=== PATIENT | male | born 1960 | race Caucasian/White ===

== ENCOUNTER 2018-05-04 13:46 | Inpatient (IN) | payer MEDICAID ==
--- NOTE | 2018-05-04 13:54 | EDM.PDOC ---
ED HPI GENERAL MEDICAL PROBLEM - General Stated Complaint: CHEST PAIN Time Seen by Provider: 05/04/18 13:46 Source of Information: Reports: Patient, Family History Limitations: Reports: Respiratory Distress - History of Present Illness INITIAL COMMENTS - FREE TEXT/NARRATIVE: 58 y.o.w.m came to the ed with his friend due to worsening of SOB in the past week. Pt can talk 2 word sentences and his Pule ox was 76 on RA on arrival. Pt was sweaty. He smokes daily and drinks daily. Denied any CAD in the past. No F/C , no N/V. He has a tingling in his throat, however. He can breath better when sitting up. BP 169/80 RR 22 pulse ox 76 pulse 108 Temp 36.8 Onset Date: 04/28/18 Onset Time: 08:28 Duration: Day(s):, Getting Worse, Intermittent Location: Reports: Chest Quality: Reports: Dull Severity: Moderate Improves with: Reports: Rest, Other (sitting up) Worsens with: Reports: Movement (lying in supine p[osition) Context: Reports: Other Associated Symptoms: Reports: Cough, Diaphoresis, Shortness of Breath, Weakness Throat Pain Score (Numeric/FACES): 10 - Related Data Allergies Allergy/AdvReac Type Severity Reaction Status Date / Time No Known Allergies Allergy Verified 05/04/18 17:11 Home Meds: Home Meds Acetaminophen [Mapap] 500 mg PO Q6H PRN 05/04/18 [History] Albuterol [Ventolin HFA] 1 - 2 puff IH Q4H PRN 05/04/18 [History] Amitriptyline [Elavil] 50 - 100 mg PO BEDTIME PRN 05/04/18 [History] Nicotine [Habitrol] 21 mg TD DAILY 05/04/18 [History] PARoxetine [Paxil] 40 mg PO DAILY 05/04/18 [History] QUEtiapine [SEROquel] 100 - 200 mg PO BEDTIME PRN 05/04/18 [History] Past Medical History Other Musculoskeletal History: Lt hand had 2 fingers reattached Other Psychiatric History: past 2-3 months ED ROS GENERAL - Review of Systems Review Of Systems: See Below Constitutional: Reports: Malaise, Weakness HEENT: Reports: Throat Pain Respiratory: Reports: Shortness of Breath, Cough Cardiovascular: Reports: Dyspnea on Exertion, Orthopnea Endocrine: Reports: No Symptoms GI/Abdominal: Reports: No Symptoms : Reports: No Symptoms Musculoskeletal: Reports: No Symptoms Skin: Reports: No Symptoms Neurological: Reports: No Symptoms Psychiatric: Reports: No Symptoms Hematologic/Lymphatic: Reports: No Symptoms Immunologic: Reports: No Symptoms ED EXAM, GENERAL - Physical Exam Exam: See Below Exam Limited By: Respiratory Distress General Appearance: Alert, Moderate Distress, Obese (morbid) Eye Exam: Bilateral Eye: Normal Inspection Ears: Normal External Exam Ear Exam: Bilateral Ear: Auricle Normal Nose: Normal Inspection Throat/Mouth: Normal Lips, Normal Voice, No Airway Compromise, Other (oral thrush) Head: Atraumatic, Normocephalic Neck: Normal Inspection, Supple, Non-Tender, Full Range of Motion Respiratory/Chest: Respiratory Distress, Decreased Breath Sounds, Rhonchi, Retractions, Prolonged Expiration Cardiovascular: Normal Peripheral Pulses, Regular Rate, Rhythm, No Edema, No Gallop, No JVD, No Murmur, No Rub Peripheral Pulses: 2+: Carotid (L) GI/Abdominal: Normal Bowel Sounds, Soft, Non-Tender, Distended (chronic) (Male) Exam: Deferred Rectal (Males) Exam: Deferred Back Exam: Normal Inspection, Full Range of Motion Extremities: Normal Inspection, Normal Range of Motion, Non-Tender, No Pedal Edema, Normal Capillary Refill Neurological: Alert, Oriented, CN II-XII Intact, Normal Cognition Psychiatric: Normal Affect Skin Exam: Warm, Dry, Intact, Diaphoretic Lymphatic: No Adenopathy EKG INTERPRETATION EKG Date: 05/04/18 Time: 14:00 Rhythm: NSR Rate (Beats/Min): 100 [place]: Normal P-Wave: Present QRS: Normal ST-T: Normal QT: Normal Comparison: NA - No Prior EKG EKG Interpretation Comments: second ECG take on 05/04/2018 at 19.45 did not show any acute ST/T wave changes as well Course - Vital Signs Text/Narrative:: 58 y.o.w.m came to the ed with his friend due to worsening of SOB in the past week. Pt can talk 2 word sentences and his Pule ox was 76 on RA on arrival. Pt was sweaty. He smokes daily and drinks daily. Denied any CAD in the past. No F/C , no N/V. He has a tingling in his throat, however. He can breath better when sitting up. BP 169/80 RR 22 pulse ox 76 pulse 108 Temp 36.8 PE: Morbid obese 58 y.o.w.m in rwsp distress. Labs: BNP 527 CBC nl BMP GFR. 60 BUN 13 Cr 1.1 Na, K nl ABG: pH 7.33 pCo2 60 po2 67 Biocarb 31 Troponin 0.017 Pts 84K ImagingL CXR: Poss chf as per RAD Impression: Pulm edema, Oral thrush, resp acidosis Tx: Duoneb, Solu Medrol, Lasix, O2 by NC, Albuterol inhalers. 3.20 pm Consultation: Dr. Pillai, Hospitalist: Accepted the pt for admission. Reexam: improved, pt can speak 5 word sentences. Plan: Admit to ICU Reexam: Troponin repeat increased to 0.038 ECG showed NSR without acute ST/T wave changes, pt had no chest pain, only when coughing 8.33 pm Consultatiom: Drs. Westbrook, Manual Arts Therapy Teacher, Dariusz, Hospitalist, [facility]: Non STEME, Start Heparin drip with Bolus!, ASA and transfer pt to [facility] 8.45 Tx: ASA, Heparin drip , with Heparin bolus was given 9.00 pm: [facility] called nurse, would not recommend Heparin Bolus because the platelets were low and she will hold the bolus till the Manual Arts Therapy Teacher was called. 9.12 pm Consultation: Dr. Arzola, Hospitalist: Tele pharmacy called: Because the Pls were low. Dr. Arzola recommended: NO HEPARIN BOLUS but 2.5 mg Metoprolol i.v 9.14 pm nurse came to the ED stating: Heparin bolus was already given by the nurse. 9.47 pm Consultation: Dr. Arzola, Hospitalist, [facility]: Was informed that the Heparin Bolus was given, he still wants Metoprolol given. Reexam: Pt was stable while here Plan: Transfer to [facility] Last Recorded V/S: Last Vital Signs Temp 36.6 C 05/04/18 22:00 Pulse 86 05/04/18 22:30 Resp 22 H 05/04/18 22:30 BP 136/84 05/04/18 22:30 Pulse Ox 95 05/04/18 22:30 - Orders/Labs/Meds Orders: Active Orders 24 hr Category Date Time Status EKG 12 Lead [EK] Routine Ther 05/04/18 13:52 Ordered Labs: Laboratory Tests 05/04/18 05/04/18 05/04/18 Range/Units 13:45 13:45 14:15 WBC 6.7 (4.5-12.0) X10-3/uL RBC 4.46 (4.30-5.75) x10(6)uL Hgb 15.6 H (11.5-15.5) g/dL Hct 46.6 (30.0-51.3) % MCV 104.3 H (80-96) fL MCH 34.9 H (27.7-33.6) pg MCHC 33.5 (32.2-35.4) g/dL RDW 13.8 (11.5-15.5) % Plt Count 84 L (125-369) X10(3)uL MPV 10.7 H (7.4-10.4) fL Neut % (Auto) 78.8 (46-82) % Lymph % (Auto) 8.7 L (13-37) % Harvey % (Auto) 11.0 (4-12) % Eos % (Auto) 0 L (1.0-5.0) % Baso % (Auto) 1 (0-2) % Neut # (Auto) 5.3 (1.6-8.3) # Lymph # (Auto) 0.6 (0.6-5.0) # Harvey # (Auto) 0.7 (0.0-1.3) # Eos # (Auto) 0.0 (0.0-0.8) # Baso # (Auto) 0.1 (0.0-0.2) # PT (8.7-11.1) INR (0.89-1.13) ABG pH (7.35-7.45) ABG pCO2 (35-45) mmHg ABG pO2 (83-108) mmHg ABG HCO3 (22-26) mmol/L ABG O2 Saturation (96-97) % ABG Base Excess (-2-2) Fredrick Test O2 Delivery Device Sodium (135-145) mmol/L Potassium (3.5-5.3) mmol/L Chloride (100-110) mmol/L Carbon Dioxide (21-32) mmol/L BUN (7-18) mg/dL Creatinine (0.70-1.30) mg/dL Est Cr Clr Drug Dosing mL/min Estimated GFR (MDRD) (>60) BUN/Creatinine Ratio (9-20) Glucose (80-116) mg/dL Lactic Acid (0.4-2.2) mmol/L Calcium (8.6-10.2) mg/dL Magnesium 1.6 L (1.8-2.5) mg/dL Creatine Kinase (60-160) IU/L Troponin I (<0.017-0.056) ng/mL NT-Pro-B Natriuret Pep 391 H (<=125) pg/mL 05/04/18 05/04/18 05/04/18 Range/Units 14:15 14:15 14:15 WBC (4.5-12.0) X10-3/uL RBC (4.30-5.75) x10(6)uL Hgb (11.5-15.5) g/dL Hct (30.0-51.3) % MCV (80-96) fL MCH (27.7-33.6) pg MCHC (32.2-35.4) g/dL RDW (11.5-15.5) % Plt Count (125-369) X10(3)uL MPV (7.4-10.4) fL Neut % (Auto) (46-82) % Lymph % (Auto) (13-37) % Harvey % (Auto) (4-12) % Eos % (Auto) (1.0-5.0) % Baso % (Auto) (0-2) % Neut # (Auto) (1.6-8.3) # Lymph # (Auto) (0.6-5.0) # Harvey # (Auto) (0.0-1.3) # Eos # (Auto) (0.0-0.8) # Baso # (Auto) (0.0-0.2) # PT 10.3 (8.7-11.1) INR 1.06 (0.89-1.13) ABG pH (7.35-7.45) ABG pCO2 (35-45) mmHg ABG pO2 (83-108) mmHg ABG HCO3 (22-26) mmol/L ABG O2 Saturation (96-97) % ABG Base Excess (-2-2) Fredrick Test O2 Delivery Device Sodium 129 L (135-145) mmol/L Potassium 4.0 (3.5-5.3) mmol/L Chloride 93 L (100-110) mmol/L Carbon Dioxide 31 (21-32) mmol/L BUN 13 (7-18) mg/dL Creatinine 1.1 (0.70-1.30) mg/dL Est Cr Clr Drug Dosing 79.36 mL/min Estimated GFR (MDRD) > 60 (>60) BUN/Creatinine Ratio 11.8 (9-20) Glucose 285 H (80-116) mg/dL Lactic Acid (0.4-2.2) mmol/L Calcium 9.0 (8.6-10.2) mg/dL Magnesium (1.8-2.5) mg/dL Creatine Kinase (60-160) IU/L Troponin I 0.027 (<0.017-0.056) ng/mL NT-Pro-B Natriuret Pep (<=125) pg/mL 05/04/18 05/04/18 05/04/18 Range/Units 14:15 14:15 14:41 WBC (4.5-12.0) X10-3/uL RBC (4.30-5.75) x10(6)uL Hgb (11.5-15.5) g/dL Hct (30.0-51.3) % MCV (80-96) fL MCH (27.7-33.6) pg MCHC (32.2-35.4) g/dL RDW (11.5-15.5) % Plt Count (125-369) X10(3)uL MPV (7.4-10.4) fL Neut % (Auto) (46-82) % Lymph % (Auto) (13-37) % Harvey % (Auto) (4-12) % Eos % (Auto) (1.0-5.0) % Baso % (Auto) (0-2) % Neut # (Auto) (1.6-8.3) # Lymph # (Auto) (0.6-5.0) # Harvey # (Auto) (0.0-1.3) # Eos # (Auto) (0.0-0.8) # Baso # (Auto) (0.0-0.2) # PT (8.7-11.1) INR (0.89-1.13) ABG pH 7.33 L (7.35-7.45) ABG pCO2 60 H (35-45) mmHg ABG pO2 67 L (83-108) mmHg ABG HCO3 31 H (22-26) mmol/L ABG O2 Saturation 91 L (96-97) % ABG Base Excess 2.6 H (-2-2) Fredrick Test Passed O2 Delivery Device Nasal cannula Sodium (135-145) mmol/L Potassium (3.5-5.3) mmol/L Chloride (100-110) mmol/L Carbon Dioxide (21-32) mmol/L BUN (7-18) mg/dL Creatinine (0.70-1.30) mg/dL Est Cr Clr Drug Dosing mL/min Estimated GFR (MDRD) (>60) BUN/Creatinine Ratio (9-20) Glucose (80-116) mg/dL Lactic Acid 1.8 (0.4-2.2) mmol/L Calcium (8.6-10.2) mg/dL Magnesium (1.8-2.5) mg/dL Creatine Kinase 588 H* (60-160) IU/L Troponin I (<0.017-0.056) ng/mL NT-Pro-B Natriuret Pep (<=125) pg/mL Meds: Medications Discontinued Medications Generic Name Dose Route Start Last Admin Trade Name Freq PRN Reason Stop Dose Admin Acetaminophen 650 mg 05/04/18 15:26 Tylenol PO Q4H PRN Pain (Mild 1-3)/fever Albuterol 10 mg 05/04/18 15:14 05/04/18 16:32 Proventil Neb Soln NEB 05/04/18 15:15 Not Given ONETIME STA Albuterol 2.5 mg 05/04/18 15:26 Proventil Neb Soln NEB Q2H PRN Shortness Of Breath/wheezing Albuterol/Ipratropium 3 ml 05/04/18 14:10 05/04/18 14:16 Duoneb 3.0-0.5 Mg/3 Ml NEB 05/04/18 14:11 3 ml ONETIME ONE Administration Albuterol/Ipratropium Confirm 05/04/18 14:13 05/04/18 15:04 Duoneb 3.0-0.5 Mg/3 Ml Administered 05/04/18 14:14 Not Given Dose 3 ml .ROUTE .STK-MED ONE Albuterol/Ipratropium 3 ml 05/04/18 14:23 05/04/18 15:04 Duoneb 3.0-0.5 Mg/3 Ml NEB 05/04/18 14:24 Not Given ONETIME ONE Albuterol/Ipratropium 3 ml 05/04/18 16:00 05/04/18 21:05 Duoneb 3.0-0.5 Mg/3 Ml NEB 3 ml QIDRT HERACLIO Administration Amitriptyline HCl 50 mg 05/04/18 16:53 Elavil PO BEDTIME PRN Sleep Amitriptyline HCl 50 mg 05/04/18 18:00 Elavil PO BEDTIME PRN SLEEP Aspirin 324 mg 05/04/18 20:37 05/04/18 21:06 Aspirin PO 05/04/18 20:38 324 mg ONETIME ONE Administration Furosemide 20 mg 05/04/18 15:24 05/04/18 15:49 Lasix IVPUSH 05/04/18 15:25 20 mg NOW STA Administration Heparin Sodium (Porcine) 5,000 units 05/04/18 20:51 05/04/18 21:06 Heparin Sodium IVPUSH 05/04/18 20:52 5,000 units ONETIME ONE Administration Magnesium Sulfate 2 gm/ Premix 50 mls @ 150 mls/hr 05/04/18 18:09 05/04/18 19 :27 IV 05/04/18 18:28 150 mls/hr ONETIME ONE Administration Heparin Sodium/Sodium Chloride 25,000 units in 500 mls @ 20 mls/hr 05/04/18 20 :45 05/04/18 21:33 Heparin 25,000 Units In 1/2 Ns 500 Ml IV 20 mls/hr TITRATE HERACLIO Administration Protocol Methylprednisolone Sodium Succinate 125 mg 05/04/18 14:56 05/04/18 15:00 Solu-Medrol IVPUSH 05/04/18 14:57 125 mg ONETIME ONE Administration Methylprednisolone Sodium Succinate 40 mg 05/04/18 21:00 05/04/18 21:09 Solu-Medrol IVPUSH 40 mg Q6H HERACLIO Administration Metoprolol Tartrate 2.5 mg 05/04/18 21:17 05/04/18 21:58 Lopressor IVPUSH 05/04/18 21:18 2.5 mg ONETIME ONE Administration Nicotine 21 mg 05/04/18 17:00 05/04/18 17:47 Habitrol TRDERM 21 mg Q24H HERACLIO Administration Nystatin 5 ml 05/04/18 15:01 05/04/18 15:07 Mycostatin PO 05/04/18 15:02 5 ml ONETIME ONE Administration Oseltamivir Phosphate 75 mg 05/04/18 17:00 05/04/18 17:48 Tamiflu PO 05/09/18 17:01 75 mg BID HERACLIO Administration Paroxetine HCl 40 mg 05/05/18 09:00 Paxil PO DAILY HERACLIO Pneumococcal Polyvalent Vaccine 0.5 ml 05/04/18 19:51 Pneumovax 23 IM 05/04/18 19:52 .ONCE ONE Quetiapine Fumarate 100 mg 05/04/18 16:53 Seroquel PO BEDTIME PRN Sleep Sodium Chloride 10 ml 05/04/18 15:02 05/04/18 22:12 Saline Flush FLUSH 10 ml ASDIRECTED PRN Administration IV Use Sodium Chloride 10 ml 05/04/18 15:26 Saline Flush FLUSH ASDIRECTED PRN Keep Vein Open Departure - Departure Time of Disposition: 16:00 Disposition: Admitted As Inpatient 65 Reason for Transfer *Q: 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
[2018-05-04] MEDS ORDERED: Albuterol/Ipratropium 3.0-0.5 MG/3 ML Neb Soln NEB ONE ×2 (14:10→14:23)
[2018-05-04] MEDS ORDERED: Albuterol/Ipratropium 3.0-0.5 MG/3 ML Neb Soln ONE (14:13)
[2018-05-04] MEDS ORDERED: methylPREDNISolone Sodium Succinate 125 MG/2 ML SDV IVPUSH ONE (14:56)
[2018-05-04] MEDS ORDERED: Nystatin Susp 100,000 Unit/ML 5 ML UD Cup PO ONE (15:01)
[2018-05-04] MEDS: Sodium Chloride 0.9% 10 ML Syringe FLUSH PRN ×6 (15:02→22:12)
[2018-05-04] MEDS ORDERED: Albuterol 0.5% 5 MG/ML Neb Soln 20 ML Bottle NEB STA (15:14)
[2018-05-04] MEDS ORDERED: Furosemide 40 MG/4 ML VIAL IVPUSH STA (15:24)
[2018-05-04] MEDS ORDERED: Sodium Chloride 0.9% 10 ML Syringe FLUSH PRN (15:26)
[2018-05-04] MEDS ORDERED: Albuterol 0.083% 2.5 MG/3 ML Neb Soln NEB PRN (15:26)
[2018-05-04] MEDS ORDERED: Acetaminophen 325 MG Tab PO PRN (15:26)
[2018-05-04] MEDS: Albuterol/Ipratropium 3.0-0.5 MG/3 ML Neb Soln NEB SCH ×2 (15:43→21:05)
--- NOTE | 2018-05-04 15:46 | CR ---
INDICATION: Dyspnea. CHEST: A portable AP upright view of the chest, 05/04/18, with two images. No comparisons. The heart did not appear grossly enlarged. Mediastinum was essentially unremarkable. Overlying EKG leads are noted. Upper lung field pulmonary vasculature is prominent and indistinct with interstitial markings suggesting pulmonary vascular congestion. Etiology is indeterminate, as the heart is normal in size but raises question of an acute myocardial event versus other noncardiac cause of pulmonary vascular congestion , such as fluid overload or possibly renal failure. This should be correlated clinically. The lungs appear to be hyperaerated, suggesting COPD. IMPRESSION: 1. Pulmonary vascular congestion with interstitial lung edema, etiology indeterminate. 2. Probable COPD. Report was called to Dr. Walsh at 1524 hours on 05/04/18. [facility]
[2018-05-04] MEDS ORDERED: QUEtiapine 100 MG Tab PO PRN (16:53)
[2018-05-04] MEDS ORDERED: Oseltamivir 75 MG Cap PO SCH (17:00)
[2018-05-04] MEDS ORDERED: Nicotine 21 MG/24 Hr Patch TRDERM SCH (17:00)
--- NOTE | 2018-05-04 17:02 | PCM.HP ---
H&P History of Present Illness - General Date of Service: 05/04/18 Admit Problem/Dx: Admission Diagnosis/Problem Admission Diagnosis/Problem Acute respiratory failure with hypoxemia Source of Information: Patient, Family, Old Records, Provider History Limitations: Reports: No Limitations, Other (Patient poor historian) - History of Present Illness Initial Comments - Free Text/Narative: Patient is a 58-year-old male with a long-standing history of cigarette smoking with a pack year history of 111. He normally smokes 1 pack of cigarettes every 3 days. The day prior to admission he developed chills, fever, myalgias, cough, sore throat, and headache. He presented to the clinic for further evaluations. He hadn't tried anything [id number]. He had no chest pain, no nausea or vomiting, no diarrhea. No wheezing. Did not have a flu vaccine this year. On presentation to the clinic he was found to be quite hypoxic with O2 sats at 77% on room air. He received a nebulizer treatment and was placed on 3 L per nasal cannula and oxygen levels came up to 89%. He was advised to come to the hospital by ambulance and was unable to be persuaded. I was contacted to admit the patient to the hospital and agreed to accept the patient but by the time he arrived here he was so hypoxic he was seen through the emergency department instead of being a direct admission. Currently, the patient is had nebulizer treatments 4. Initial workup in the emergency department was otherwise unremarkable. Blood gases at the time of admission showed a pH of 7.33 with a CO2 of 60 and O2 67 but the patient is much more comfortable now and seems to have stabilized with his oxygen saturations are 94% on 4 L respiratory rate in the 20 range. Initial labs were otherwise unremarkable with the exception of blood sugar 285 and magnesium 1.6. The patient has no known history of diabetes or hyperglycemia. Medication list was reviewed from the clinic, pharmacy fills, and the [facility] where the patient doctors for his psychiatric care. The patient received a dose of Lasix in the emergency department because of question of congestive heart failure on the x-ray and also received nystatin orally for coating on the tongue. Past medical history: Anxiety and depression Tobacco abuse No history of hypertension, diabetes, heart attack or stroke per patient report. In reviewing notes sent over from [facility] there is no mention of other medical problems. Social history: The patient is single and lives alone in an apartment in [place]. He has no children. He is currently unemployed but is looking for work and has been interviewing. He smokes one pack of cigarettes every 3 days and has for the last 35 years. He drinks alcohol at least once a week and tells me he goes through about a 12 pack of beer per week. He doesn't drink frequently during the week but when he does drink he drinks fairly heavily it sounds. Family history: The patient's mother of congestive heart failure at the age of 92. His father of rectal cancer at the age of 55. The patient has 2 brothers, one from congestive heart failure at the age of 51. The other has diabetes. He has 3 healthy sisters who he has very little contact with. Throat Pain Score (Numeric/FACES): 10 - Related Data Allergies/Adverse Reactions: Allergies Allergy/AdvReac Type Severity Reaction Status Date / Time No Known Allergies Allergy Verified 05/04/18 17:11 Home Medications: Home Meds Acetaminophen [Mapap] 500 mg PO Q6H PRN 05/04/18 [History] Albuterol [Ventolin HFA] 1 - 2 puff IH Q4H PRN 05/04/18 [History] Amitriptyline [Elavil] 50 - 100 mg PO BEDTIME PRN 05/04/18 [History] Nicotine [Habitrol] 21 mg TD DAILY 05/04/18 [History] PARoxetine [Paxil] 40 mg PO DAILY 05/04/18 [History] QUEtiapine [SEROquel] 100 - 200 mg PO BEDTIME PRN 05/04/18 [History] Past Medical History Cardiovascular History: Reports: Hypertension Other Musculoskeletal History: Lt hand had 2 fingers reattached Psychiatric History: Reports: Anxiety, Depression Other Psychiatric History: past 2-3 months Endocrine/Metabolic History: Reports: Obesity/BMI 30+ Social & Family History - Tobacco Use Smoking Status *Q: Current Every Day Smoker Years of Tobacco use: 35 Packs/Tins Daily: 0.4 - Caffeine Use Caffeine Use: Reports: Coffee - Recreational Drug Use Recreational Drug Use: No H&P Review of Systems - Review of Systems: Review Of Systems: ROS reveals no pertinent complaints other than HPI. Exam - Exam Exam: See Below - Vital Signs Vital Signs: Last Vital Signs Temp 37.2 C 05/04/18 13:50 Pulse 100 05/04/18 15:55 Resp 22 H 05/04/18 13:50 BP 169/80 H 05/04/18 13:50 Pulse Ox 92 L 05/04/18 15:55 Weight: 108.862 kg - Exam General: Alert, Oriented, Cooperative HEENT: PERRLA, Conjunctiva Clear, EOMI, Other (Tongue coated with a yellow film and apparently the patient got nystatin in the emergency department for this.) Neck: Supple, Trachea Midline Lungs: Decreased Breath Sounds. No: Crackles, Rhonchi, Wheezing Cardiovascular: Regular Rate, Regular Rhythm, Normal S1, Normal S2 GI/Abdominal Exam: Normal Bowel Sounds, Soft, Non-Tender, No Distention Extremities: No Pedal Edema Neuro Extensive - Mental Status: Alert, Oriented x3, Normal Mood/Affect, Normal Cognition - Patient Data Lab Results Last 24 hrs: Laboratory Results - last 24 hr 05/04/18 05/04/18 05/04/18 Range/Units 13:45 13:45 14:15 WBC 6.7 (4.5-12.0) X10-3/uL RBC 4.46 (4.30-5.75) x10(6)uL Hgb 15.6 H (11.5-15.5) g/dL Hct 46.6 (30.0-51.3) % MCV 104.3 H (80-96) fL MCH 34.9 H (27.7-33.6) pg MCHC 33.5 (32.2-35.4) g/dL RDW 13.8 (11.5-15.5) % Plt Count 84 L (125-369) X10(3)uL MPV 10.7 H (7.4-10.4) fL Neut % (Auto) 78.8 (46-82) % Lymph % (Auto) 8.7 L (13-37) % [place] % (Auto) 11.0 (4-12) % Eos % (Auto) 0 L (1.0-5.0) % Baso % (Auto) 1 (0-2) % Neut # (Auto) 5.3 (1.6-8.3) # Lymph # (Auto) 0.6 (0.6-5.0) # [place] # (Auto) 0.7 (0.0-1.3) # Eos # (Auto) 0.0 (0.0-0.8) # Baso # (Auto) 0.1 (0.0-0.2) # PT (8.7-11.1) INR (0.89-1.13) ABG pH (7.35-7.45) ABG pCO2 (35-45) mmHg ABG pO2 (83-108) mmHg ABG HCO3 (22-26) mmol/L ABG O2 Saturation (96-97) % ABG Base Excess (-2-2) Fredrick Test O2 Delivery Device Sodium (135-145) mmol/L Potassium (3.5-5.3) mmol/L Chloride (100-110) mmol/L Carbon Dioxide (21-32) mmol/L BUN (7-18) mg/dL Creatinine (0.70-1.30) mg/dL Est Cr Clr Drug Dosing mL/min Estimated GFR (MDRD) (>60) BUN/Creatinine Ratio (9-20) Glucose (80-116) mg/dL Lactic Acid (0.4-2.2) mmol/L Calcium (8.6-10.2) mg/dL Magnesium 1.6 L (1.8-2.5) mg/dL Creatine Kinase (60-160) IU/L Troponin I (<0.017-0.056) ng/mL NT-Pro-B Natriuret Pep 391 H (<=125) pg/mL 05/04/18 05/04/18 05/04/18 Range/Units 14:15 14:15 14:15 WBC (4.5-12.0) X10-3/uL RBC (4.30-5.75) x10(6)uL Hgb (11.5-15.5) g/dL Hct (30.0-51.3) % MCV (80-96) fL MCH (27.7-33.6) pg MCHC (32.2-35.4) g/dL RDW (11.5-15.5) % Plt Count (125-369) X10(3)uL MPV (7.4-10.4) fL Neut % (Auto) (46-82) % Lymph % (Auto) (13-37) % [place] % (Auto) (4-12) % Eos % (Auto) (1.0-5.0) % Baso % (Auto) (0-2) % Neut # (Auto) (1.6-8.3) # Lymph # (Auto) (0.6-5.0) # [place] # (Auto) (0.0-1.3) # Eos # (Auto) (0.0-0.8) # Baso # (Auto) (0.0-0.2) # PT 10.3 (8.7-11.1) INR 1.06 (0.89-1.13) ABG pH (7.35-7.45) ABG pCO2 (35-45) mmHg ABG pO2 (83-108) mmHg ABG HCO3 (22-26) mmol/L ABG O2 Saturation (96-97) % ABG Base Excess (-2-2) Fredrick Test O2 Delivery Device Sodium 129 L (135-145) mmol/L Potassium 4.0 (3.5-5.3) mmol/L Chloride 93 L (100-110) mmol/L Carbon Dioxide 31 (21-32) mmol/L BUN 13 (7-18) mg/dL Creatinine 1.1 (0.70-1.30) mg/dL Est Cr Clr Drug Dosing 79.36 mL/min Estimated GFR (MDRD) > 60 (>60) BUN/Creatinine Ratio 11.8 (9-20) Glucose 285 H (80-116) mg/dL Lactic Acid (0.4-2.2) mmol/L Calcium 9.0 (8.6-10.2) mg/dL Magnesium (1.8-2.5) mg/dL Creatine Kinase (60-160) IU/L Troponin I 0.027 (<0.017-0.056) ng/mL NT-Pro-B Natriuret Pep (<=125) pg/mL 05/04/18 05/04/18 05/04/18 Range/Units 14:15 14:15 14:41 WBC (4.5-12.0) X10-3/uL RBC (4.30-5.75) x10(6)uL Hgb (11.5-15.5) g/dL Hct (30.0-51.3) % MCV (80-96) fL MCH (27.7-33.6) pg MCHC (32.2-35.4) g/dL RDW (11.5-15.5) % Plt Count (125-369) X10(3)uL MPV (7.4-10.4) fL Neut % (Auto) (46-82) % Lymph % (Auto) (13-37) % [place] % (Auto) (4-12) % Eos % (Auto) (1.0-5.0) % Baso % (Auto) (0-2) % Neut # (Auto) (1.6-8.3) # Lymph # (Auto) (0.6-5.0) # [place] # (Auto) (0.0-1.3) # Eos # (Auto) (0.0-0.8) # Baso # (Auto) (0.0-0.2) # PT (8.7-11.1) INR (0.89-1.13) ABG pH 7.33 L (7.35-7.45) ABG pCO2 60 H (35-45) mmHg ABG pO2 67 L (83-108) mmHg ABG HCO3 31 H (22-26) mmol/L ABG O2 Saturation 91 L (96-97) % ABG Base Excess 2.6 H (-2-2) Fredrick Test Passed O2 Delivery Device Nasal cannula Sodium (135-145) mmol/L Potassium (3.5-5.3) mmol/L Chloride (100-110) mmol/L Carbon Dioxide (21-32) mmol/L BUN (7-18) mg/dL Creatinine (0.70-1.30) mg/dL Est Cr Clr Drug Dosing mL/min Estimated GFR (MDRD) (>60) BUN/Creatinine Ratio (9-20) Glucose (80-116) mg/dL Lactic Acid 1.8 (0.4-2.2) mmol/L Calcium (8.6-10.2) mg/dL Magnesium (1.8-2.5) mg/dL Creatine Kinase 588 H* (60-160) IU/L Troponin I (<0.017-0.056) ng/mL NT-Pro-B Natriuret Pep (<=125) pg/mL Result Diagrams: 05/04/18 14:15 05/04/18 14:15 Imaging Impressions Last 24 hrs: Chest x-ray was done portable emergency department and to my review looks fairly clear. I don't see any fluid in the costophrenic angles and perhaps a little increased vascular markings but certainly no infiltrate. - Problem List (1) Acute respiratory failure with hypoxia and hypercapnia SNOMED Code(s): 635603009 ICD Code: J96.01 - ACUTE RESPIRATORY FAILURE WITH HYPOXIA; J96.02 - ACUTE RESPIRATORY FAILURE WITH HYPERCAPNIA Status: Acute Current Visit: Yes Problem Details: Likely multifactorial, I suspect the patient has moderate underlying COPD that caused his influenza to trigger significant reactive airways and bronchospasm resulting in severe hypoxia. The patient is somewhat improved. We'll continue supplemental oxygen, cardiac monitoring, duo nebs, Solu -Medrol, Tamiflu as below, and monitor for signs of bacterial secondary infection. Also recheck CK and troponin in 4 hours to make sure these aren't trending up and the patient hasn't had a myocardial infarction which was contributing to his shortness of breath. (2) Influenza A SNOMED Code(s): 483330484 ICD Code: J10.1 - FLU DUE TO OTH IDENT INFLUENZA VIRUS W OTH RESP MANIFEST Status: Acute Current Visit: Yes Problem Details: Tamiflu 75 mg by mouth twice a day 5 days. Droplet precautions. (3) Tobacco abuse SNOMED Code(s): 590035539 ICD Code: Z72.0 - TOBACCO USE Status: Acute Current Visit: Yes Problem Details: Nicotine patch. (4) Hypomagnesemia SNOMED Code(s): 058125794 ICD Code: E83.42 - HYPOMAGNESEMIA Status: Acute Current Visit: Yes Problem Details: Replace IV. (5) Macrocytosis SNOMED Code(s): 082067040 ICD Code: D75.89 - OTHER SPECIFIED DISEASES OF BLOOD AND BLOOD-FORMING ORGANS Status: Acute Current Visit: Yes Problem Details: Check a B12 and folate. May be related to alcohol abuse. (6) Anxiety and depression SNOMED Code(s): 60977211 ICD Code: F41.9 - ANXIETY DISORDER, UNSPECIFIED; F32.9 - MAJOR DEPRESSIVE DISORDER, SINGLE EPISODE, UNSPECIFIED Status: Acute Current Visit: Yes Problem Details: Continue home meds. (7) Brown hairy tongue SNOMED Code(s): 90586635 ICD Code: K14.3 - HYPERTROPHY OF TONGUE PAPILLAE Status: Acute Current Visit: Yes Problem Details: Suspect from drinking/smoking/poor oral hygiene. [place] tongue with teeth BID. (8) DVT prophylaxis SNOMED Code(s): 549399947, 106793591 ICD Code: [id number] - Status: Acute Current Visit: Yes Problem Details: SCDs, Lovenox. Problem List Initiated/Reviewed/Updated: Yes Orders Last 24hrs: Active Orders 24 hr Category Date Time Status Patient Status [ADT] Routine ADT 05/04/18 15:26 Active Height and Weight [RC] DAILY Care 05/04/18 15:26 Active Intake and Output [RC] QSHIFT Care 05/04/18 15:27 Active Notify Provider Vital Signs [RC] ASDIRECTED Care 05/04/18 15:28 Active Oxygen Therapy [RC] PRN Care 05/04/18 15:26 Active RT Aerosol Therapy [RC] ASDIRECTED Care 05/04/18 15:29 Active Up With Assistance [RC] ASDIRECTED Care 05/04/18 15:26 Active VTE/DVT Education [RC] Per Unit Routine Care 05/04/18 15:26 Active Vital Signs [RC] Q4H Care 05/04/18 15:26 Active Respiratory Care Assess and Treatment [CONS] Routine Cons 05/04/18 15:26 Active 2 Gram Sodium Diet [DIET] Diet 05/04/18 Breakfast Ordered Consistent Carbohydrate Diet [DIET] Diet 05/04/18 Breakfast Ordered CBC WITH AUTO DIFF [HEME] AM Lab 05/05/18 05:11 Ordered COMPREHENSIVE METABOLIC PN,CMP [CHEM] AM Lab 05/05/18 05:11 Ordered CULTURE SPUTUM + SMEAR [RM] Stat Lab 05/04/18 15:26 Ordered TROPONIN I [CHEM] Routine Lab 05/04/18 18:30 Ordered Acetaminophen [Tylenol] Med 05/04/18 15:26 Active 650 mg PO Q4H PRN Albuterol [Proventil Neb Soln] Med 05/04/18 15:26 Active 2.5 mg NEB Q2H PRN Albuterol/Ipratropium [DuoNeb 3.0-0.5 MG/3 ML] Med 05/04/18 16:00 Active 3 ml NEB QIDRT Amitriptyline [Elavil] Med 05/04/18 16:53 Ordered 50 mg PO BEDTIME PRN Nicotine [Habitrol] Med 05/05/18 09:00 Ordered 21 mg TRDERM DAILY Oseltamivir [Tamiflu] Med 05/04/18 17:00 Ordered 75 mg PO BID PARoxetine [Paxil] Med 05/05/18 09:00 Ordered 40 mg PO DAILY QUEtiapine [SEROquel] Med 05/04/18 16:53 Ordered 100 mg PO BEDTIME PRN Sodium Chloride 0.9% [Saline Flush] Med 05/04/18 15:02 Active 10 ml FLUSH ASDIRECTED PRN Sodium Chloride 0.9% [Saline Flush] Med 05/04/18 15:26 Active 10 ml FLUSH ASDIRECTED PRN Antiembolic Hose [OM.PC] Per Unit Routine Oth 05/04/18 15:28 Ordered Peripheral IV Insertion Adult [OM.PC] Routine Oth 05/04/18 15:26 Ordered Sequential Compression Device [OM.PC] Per Unit Routine Oth 05/04/18 15:28 Ordered EKG 12 Lead [EK] Routine Ther 05/04/18 13:52 Ordered Medication Orders Acetaminophen (Tylenol) 650 mg PO Q4H PRN PRN Reason: Pain (Mild 1-3)/fever Albuterol (Proventil Neb Soln) 2.5 mg NEB Q2H PRN PRN Reason: Shortness Of Breath/wheezing Albuterol/Ipratropium (Duoneb 3.0-0.5 Mg/3 Ml) 3 ml NEB QIDRT HERACLIO Last Admin: 05/04/18 15:43 Dose: 3 ml Amitriptyline HCl (Elavil) 50 mg PO BEDTIME PRN PRN Reason: Sleep Nicotine (Habitrol) 21 mg TRDERM Q24H HERACLIO Paroxetine HCl (Paxil) 40 mg PO DAILY HERACLIO Quetiapine Fumarate (Seroquel) 100 mg PO BEDTIME PRN PRN Reason: Sleep Sodium Chloride (Saline Flush) 10 ml FLUSH ASDIRECTED PRN PRN Reason: IV Use Last Admin: 05/04/18 15:49 Dose: 10 ml Admin: 05/04/18 15:02 Dose: 10 ml Sodium Chloride (Saline Flush) 10 ml FLUSH ASDIRECTED PRN PRN Reason: Keep Vein Open Assessment/Plan Comment:: Discussed CODE STATUS at length with the patient on admission. The patient tells me he is his own decision maker and there is no one he would like to consult. He tells me if he gets so sick while he was here that his heart were to stop beating or he were to stop breathing, he would not want CPR or any attempts to resuscitate him. When asking more about this decision he indicated to me that when it is his time he is ready to go. Discussed that if his breathing gets so bad that he looks like he might without a breathing machine, it's likely this would be reversible in his situation and he could probably recover and go home and do well. However he tells me he would not want to be placed on a breathing machine but rather if it is time to go to let him . The patient shows no signs or symptoms or endorses any symptoms of depression. He appears competent to make this decision, currently alert and oriented x3, able to articulate his thoughts and wishes, and thus the patient will be DNR/DNI.
[2018-05-04] MEDS ORDERED: Amitriptyline 25 MG Tab PO PRN (18:00)
[2018-05-04] MEDS ORDERED: Magnesium Sulfate/Water 2 GM in Premix Bag 1 BAG IV ONE (18:09)
[2018-05-04] MEDS ORDERED: Pneumococcal Polyvalent-23 Vaccine 0.5 ML SDV IM ONE (19:51)
[2018-05-04] MEDS ORDERED: Aspirin 81 MG Tab.Chew PO ONE (20:37)
[2018-05-04] MEDS ORDERED: Heparin Sodium/0.45% NaCl 25,000 UNITS/500 ML BAG IV SCH (20:45)
[2018-05-04] MEDS ORDERED: Heparin Sodium 5,000 Units/ML Vial IVPUSH ONE (20:51)
[2018-05-04] MEDS ORDERED: methylPREDNISolone Sodium Succinate 40 MG/1 ML SDV IVPUSH SCH (21:00)
[2018-05-04] MEDS ORDERED: Metoprolol Tartrate 5 MG/5 ML SDV IVPUSH ONE (21:17)
[2018-05-05 02:45] VITALS: BP 136/84
[2018-05-05] MEDS ORDERED: PARoxetine 20 MG Tab PO SCH (09:00)
--- NOTE | 2018-05-05 11:01 | PCM.DCSUM1 ---
Discharge Summary - Hospital Course Brief History: Impression: NSTEMI, Respiratory distress. Reexam: Troponin repeat increased to 0.038 ECG showed NSR without acute ST/T wave changes, pt had no chest pain, only when coughing. 8.33 pm Consultatiom: Drs. Westbrook, Sales Merchandise Associate, Dariusz, Hospitalist,. [facility]: Non STEME, Start Heparin drip with Bolus!, ASA and transfer pt to [facility]. 8.45 Tx: ASA, Heparin drip , with Heparin bolus was given. 9.00 pm: [facility] called nurse, would not recommend Heparin Bolus because the platelets were low and she will hold the bolus till the Sales Merchandise Associate was called. 9.12 pm Consultation: Dr. Arzola, Hospitalist: Tele pharmacy called: Because the Pls were low. Dr. Arzola recommended: NO HEPARIN BOLUS but 2.5 mg Metoprolol i.v. 9.14 pm nurse came to the ED stating: Heparin bolus was already given by the nurse. 9.47 pm Consultation: Dr. Arzola, Hospitalist, [facility]: Was informed that the Heparin Bolus was given, he still wants Metoprolol given. Reexam: Pt was stable while here. Plan: Transfer to [facility] - Discharge Data Discharge Date: 05/04/18 Discharge Disposition: DC/Tfer to Acute Hospital 02 Condition: Fair - Discharge Diagnosis/Problem(s) (1) NSTEMI (non-ST elevated myocardial infarction) SNOMED Code(s): 18437999 ICD Code: I21.4 - NON-ST ELEVATION (NSTEMI) MYOCARDIAL INFARCTION Status: Acute - Patient Summary/Data Consults: Consultations 05/04/18 15:26 Respiratory Care Assess and Treatment [CONS] Routine Comment: Physician Instructions: - Discharge Plan Home Medications: Home Meds Acetaminophen [Mapap] 500 mg PO Q6H PRN 05/04/18 [History] Albuterol [Ventolin HFA] 1 - 2 puff IH Q4H PRN 05/04/18 [History] Amitriptyline [Elavil] 50 - 100 mg PO BEDTIME PRN 05/04/18 [History] Nicotine [Habitrol] 21 mg TD DAILY 05/04/18 [History] PARoxetine [Paxil] 40 mg PO DAILY 05/04/18 [History] QUEtiapine [SEROquel] 100 - 200 mg PO BEDTIME PRN 05/04/18 [History] Forms: ED Department Discharge Referrals: Rika Ernandez NP [Primary Care Provider] - - Discharge Summary/Plan Comment DC Time >30 min.: Yes - Patient Data Vitals - Most Recent: Last Vital Signs Temp 36.6 C 05/04/18 22:00 Pulse 86 05/04/18 22:30 Resp 22 H 05/04/18 22:30 BP 136/84 05/04/18 22:30 Pulse Ox 95 05/04/18 22:30 Weight - Most Recent: 108.862 kg I&O - Last 24 hours: Intake & Output 05/04/18 05/05/18 05/05/18 22:59 06:59 14:59 Output Total 1500 Balance -1500 Lab Results - Last 24 hrs: Laboratory Results - last 24 hr 05/04/18 05/04/18 05/04/18 Range/Units 13:45 13:45 14:15 WBC 6.7 (4.5-12.0) X10-3/uL RBC 4.46 (4.30-5.75) x10(6)uL Hgb 15.6 H (11.5-15.5) g/dL Hct 46.6 (30.0-51.3) % MCV 104.3 H (80-96) fL MCH 34.9 H (27.7-33.6) pg MCHC 33.5 (32.2-35.4) g/dL RDW 13.8 (11.5-15.5) % Plt Count 84 L (125-369) X10(3)uL MPV 10.7 H (7.4-10.4) fL Neut % (Auto) 78.8 (46-82) % Lymph % (Auto) 8.7 L (13-37) % Tucker % (Auto) 11.0 (4-12) % Eos % (Auto) 0 L (1.0-5.0) % Baso % (Auto) 1 (0-2) % Neut # (Auto) 5.3 (1.6-8.3) # Lymph # (Auto) 0.6 (0.6-5.0) # Tucker # (Auto) 0.7 (0.0-1.3) # Eos # (Auto) 0.0 (0.0-0.8) # Baso # (Auto) 0.1 (0.0-0.2) # PT (8.7-11.1) INR (0.89-1.13) ABG pH (7.35-7.45) ABG pCO2 (35-45) mmHg ABG pO2 (83-108) mmHg ABG HCO3 (22-26) mmol/L ABG O2 Saturation (96-97) % ABG Base Excess (-2-2) Fredrick Test O2 Delivery Device Sodium (135-145) mmol/L Potassium (3.5-5.3) mmol/L Chloride (100-110) mmol/L Carbon Dioxide (21-32) mmol/L BUN (7-18) mg/dL Creatinine (0.70-1.30) mg/dL Est Cr Clr Drug Dosing mL/min Estimated GFR (MDRD) (>60) BUN/Creatinine Ratio (9-20) Glucose (80-116) mg/dL Lactic Acid (0.4-2.2) mmol/L Calcium (8.6-10.2) mg/dL Magnesium 1.6 L (1.8-2.5) mg/dL Creatine Kinase (60-160) IU/L Troponin I (<0.017-0.056) ng/mL NT-Pro-B Natriuret Pep 391 H (<=125) pg/mL 05/04/18 05/04/18 05/04/18 Range/Units 14:15 14:15 14:15 WBC (4.5-12.0) X10-3/uL RBC (4.30-5.75) x10(6)uL Hgb (11.5-15.5) g/dL Hct (30.0-51.3) % MCV (80-96) fL MCH (27.7-33.6) pg MCHC (32.2-35.4) g/dL RDW (11.5-15.5) % Plt Count (125-369) X10(3)uL MPV (7.4-10.4) fL Neut % (Auto) (46-82) % Lymph % (Auto) (13-37) % Tucker % (Auto) (4-12) % Eos % (Auto) (1.0-5.0) % Baso % (Auto) (0-2) % Neut # (Auto) (1.6-8.3) # Lymph # (Auto) (0.6-5.0) # Tucker # (Auto) (0.0-1.3) # Eos # (Auto) (0.0-0.8) # Baso # (Auto) (0.0-0.2) # PT 10.3 (8.7-11.1) INR 1.06 (0.89-1.13) ABG pH (7.35-7.45) ABG pCO2 (35-45) mmHg ABG pO2 (83-108) mmHg ABG HCO3 (22-26) mmol/L ABG O2 Saturation (96-97) % ABG Base Excess (-2-2) Fredrick Test O2 Delivery Device Sodium 129 L (135-145) mmol/L Potassium 4.0 (3.5-5.3) mmol/L Chloride 93 L (100-110) mmol/L Carbon Dioxide 31 (21-32) mmol/L BUN 13 (7-18) mg/dL Creatinine 1.1 (0.70-1.30) mg/dL Est Cr Clr Drug Dosing 79.36 mL/min Estimated GFR (MDRD) > 60 (>60) BUN/Creatinine Ratio 11.8 (9-20) Glucose 285 H (80-116) mg/dL Lactic Acid (0.4-2.2) mmol/L Calcium 9.0 (8.6-10.2) mg/dL Magnesium (1.8-2.5) mg/dL Creatine Kinase (60-160) IU/L Troponin I 0.027 (<0.017-0.056) ng/mL NT-Pro-B Natriuret Pep (<=125) pg/mL 05/04/18 05/04/18 05/04/18 Range/Units 14:15 14:15 14:41 WBC (4.5-12.0) X10-3/uL RBC (4.30-5.75) x10(6)uL Hgb (11.5-15.5) g/dL Hct (30.0-51.3) % MCV (80-96) fL MCH (27.7-33.6) pg MCHC (32.2-35.4) g/dL RDW (11.5-15.5) % Plt Count (125-369) X10(3)uL MPV (7.4-10.4) fL Neut % (Auto) (46-82) % Lymph % (Auto) (13-37) % Tucker % (Auto) (4-12) % Eos % (Auto) (1.0-5.0) % Baso % (Auto) (0-2) % Neut # (Auto) (1.6-8.3) # Lymph # (Auto) (0.6-5.0) # Tucker # (Auto) (0.0-1.3) # Eos # (Auto) (0.0-0.8) # Baso # (Auto) (0.0-0.2) # PT (8.7-11.1) INR (0.89-1.13) ABG pH 7.33 L (7.35-7.45) ABG pCO2 60 H (35-45) mmHg ABG pO2 67 L (83-108) mmHg ABG HCO3 31 H (22-26) mmol/L ABG O2 Saturation 91 L (96-97) % ABG Base Excess 2.6 H (-2-2) Fredrick Test Passed O2 Delivery Device Nasal cannula Sodium (135-145) mmol/L Potassium (3.5-5.3) mmol/L Chloride (100-110) mmol/L Carbon Dioxide (21-32) mmol/L BUN (7-18) mg/dL Creatinine (0.70-1.30) mg/dL Est Cr Clr Drug Dosing mL/min Estimated GFR (MDRD) (>60) BUN/Creatinine Ratio (9-20) Glucose (80-116) mg/dL Lactic Acid 1.8 (0.4-2.2) mmol/L Calcium (8.6-10.2) mg/dL Magnesium (1.8-2.5) mg/dL Creatine Kinase 588 H* (60-160) IU/L Troponin I (<0.017-0.056) ng/mL NT-Pro-B Natriuret Pep (<=125) pg/mL 05/04/18 05/04/18 Range/Units 18:30 18:30 WBC (4.5-12.0) X10-3/uL RBC (4.30-5.75) x10(6)uL Hgb (11.5-15.5) g/dL Hct (30.0-51.3) % MCV (80-96) fL MCH (27.7-33.6) pg MCHC (32.2-35.4) g/dL RDW (11.5-15.5) % Plt Count (125-369) X10(3)uL MPV (7.4-10.4) fL Neut % (Auto) (46-82) % Lymph % (Auto) (13-37) % Tucker % (Auto) (4-12) % Eos % (Auto) (1.0-5.0) % Baso % (Auto) (0-2) % Neut # (Auto) (1.6-8.3) # Lymph # (Auto) (0.6-5.0) # Tucker # (Auto) (0.0-1.3) # Eos # (Auto) (0.0-0.8) # Baso # (Auto) (0.0-0.2) # PT (8.7-11.1) INR (0.89-1.13) ABG pH (7.35-7.45) ABG pCO2 (35-45) mmHg ABG pO2 (83-108) mmHg ABG HCO3 (22-26) mmol/L ABG O2 Saturation (96-97) % ABG Base Excess (-2-2) Fredrick Test O2 Delivery Device Sodium (135-145) mmol/L Potassium (3.5-5.3) mmol/L Chloride (100-110) mmol/L Carbon Dioxide (21-32) mmol/L BUN (7-18) mg/dL Creatinine (0.70-1.30) mg/dL Est Cr Clr Drug Dosing mL/min Estimated GFR (MDRD) (>60) BUN/Creatinine Ratio (9-20) Glucose (80-116) mg/dL Lactic Acid (0.4-2.2) mmol/L Calcium (8.6-10.2) mg/dL Magnesium (1.8-2.5) mg/dL Creatine Kinase 633 H* (60-160) IU/L Troponin I 0.038 (<0.017-0.056) ng/mL NT-Pro-B Natriuret Pep (<=125) pg/mL Med Orders - Current: Current Medications Discontinued Medications Acetaminophen (Tylenol) 650 mg PO Q4H PRN PRN Reason: Pain (Mild 1-3)/fever Albuterol (Proventil Neb Soln) 10 mg NEB ONETIME STA Stop: 05/04/18 15:15 Last Admin: 05/04/18 16:32 Dose: Not Given Albuterol (Proventil Neb Soln) 2.5 mg NEB Q2H PRN PRN Reason: Shortness Of Breath/wheezing Albuterol/Ipratropium (Duoneb 3.0-0.5 Mg/3 Ml) 3 ml NEB ONETIME ONE Stop: 05/04/18 14:11 Last Admin: 05/04/18 14:16 Dose: 3 ml Albuterol/Ipratropium (Duoneb 3.0-0.5 Mg/3 Ml) Confirm Administered Dose 3 ml .ROUTE .STK-MED ONE Stop: 05/04/18 14:14 Last Admin: 05/04/18 15:04 Dose: Not Given Albuterol/Ipratropium (Duoneb 3.0-0.5 Mg/3 Ml) 3 ml NEB ONETIME ONE Stop: 05/04/18 14:24 Last Admin: 05/04/18 15:04 Dose: Not Given Albuterol/Ipratropium (Duoneb 3.0-0.5 Mg/3 Ml) 3 ml NEB QIDRT [facility] Last Admin: 05/04/18 21:05 Dose: 3 ml Amitriptyline HCl (Elavil) 50 mg PO BEDTIME PRN PRN Reason: Sleep Amitriptyline HCl (Elavil) 50 mg PO BEDTIME PRN PRN Reason: SLEEP Aspirin (Aspirin) 324 mg PO ONETIME ONE Stop: 05/04/18 20:38 Last Admin: 05/04/18 21:06 Dose: 324 mg Furosemide (Lasix) 20 mg IVPUSH NOW STA Stop: 05/04/18 15:25 Last Admin: 05/04/18 15:49 Dose: 20 mg Heparin Sodium (Porcine) (Heparin Sodium) 5,000 units IVPUSH ONETIME ONE Stop: 05/04/18 20:52 Last Admin: 05/04/18 21:06 Dose: 5,000 units Magnesium Sulfate 2 gm/ Premix 50 mls @ 150 mls/hr IV ONETIME ONE Stop: 05/04/18 18:28 Last Admin: 05/04/18 19:27 Dose: 150 mls/hr Heparin Sodium/Sodium Chloride (Heparin 25,000 Units In 1/2 Ns 500 Ml) 25,000 units in 500 mls @ 20 mls/hr IV TITRATE HERACLIO; Protocol Last Admin: 05/04/18 21:33 Dose: 20 mls/hr Methylprednisolone Sodium Succinate (Solu-Medrol) 125 mg IVPUSH ONETIME ONE Stop: 05/04/18 14:57 Last Admin: 05/04/18 15:00 Dose: 125 mg Methylprednisolone Sodium Succinate (Solu-Medrol) 40 mg IVPUSH Q6H HERACLIO Last Admin: 05/04/18 21:09 Dose: 40 mg Metoprolol Tartrate (Lopressor) 2.5 mg IVPUSH ONETIME ONE Stop: 05/04/18 21:18 Last Admin: 05/04/18 21:58 Dose: 2.5 mg Nicotine (Habitrol) 21 mg TRDERM Q24H [facility] Last Admin: 05/04/18 17:47 Dose: 21 mg Nystatin (Mycostatin) 5 ml PO ONETIME ONE Stop: 05/04/18 15:02 Last Admin: 05/04/18 15:07 Dose: 5 ml Oseltamivir Phosphate (Tamiflu) 75 mg PO BID HERACLIO Stop: 05/09/18 17:01 Last Admin: 05/04/18 17:48 Dose: 75 mg Paroxetine HCl (Paxil) 40 mg PO DAILY [facility] Pneumococcal Polyvalent Vaccine (Pneumovax 23) 0.5 ml IM .ONCE ONE Stop: 05/04/18 19:52 Quetiapine Fumarate (Seroquel) 100 mg PO BEDTIME PRN PRN Reason: Sleep Sodium Chloride (Saline Flush) 10 ml FLUSH ASDIRECTED PRN PRN Reason: IV Use Last Admin: 05/04/18 22:12 Dose: 10 ml Sodium Chloride (Saline Flush) 10 ml FLUSH ASDIRECTED PRN PRN Reason: Keep Vein Open
== END 2018-05-04 22:32 | DRG 280 ==
LOC: FB.ED 13:46 → EDSTATUS 13:58 → FB.ICU 15:26
PROVIDERS: ADMIT Family Medicine; ATTEND Family Medicine
DX: I21.4 Non-ST elevation (NSTEMI) myocardial infarction (principal); J96.01 Acute respiratory failure with hypoxia; E87.2 Acidosis; J10.1 Influenza due to other identified influenza virus with other respiratory manifestations; F17.210 Nicotine dependence, cigarettes, uncomplicated; F41.9 Anxiety disorder, unspecified; F32.9 Major depressive disorder, single episode, unspecified; J44.9 Chronic obstructive pulmonary disease, unspecified; E83.42 Hypomagnesemia; D75.89 Other specified diseases of blood and blood-forming organs; K14.3 Hypertrophy of tongue papillae; E66.9 Obesity, unspecified; Z68.32 Body mass index [BMI] 32.0-32.9, adult; Z79.899 Other long term (current) drug therapy; Z66 Do not resuscitate
CPT/HCPCS: 36415; 36600; 71045; 80048; 82550; 82803; 83605; 83735; 83880; 84484; 85025; 85610; 93005; 94640; 96374; 96375; 99285; A9270-GY; J1644; J1940; J2920; J2930; J3475; J3490; J7620-GY

== ENCOUNTER 2018-11-01 13:19 | Emergency (ER) | payer MEDICAID ==
--- NOTE | 2018-11-01 13:45 | EDM.PDOC ---
ED HPI GENERAL MEDICAL PROBLEM - General Stated Complaint: SLIPPED AND FELL IN SHOWER Time Seen by Provider: 11/01/18 13:45 Source of Information: Reports: Patient History Limitations: Reports: No Limitations - History of Present Illness INITIAL COMMENTS - FREE TEXT/NARRATIVE: 58-year-old male who reports on 10/30/2018, at 10 PM he was taking a shower in his tub/shower and he slipped and fell landing on his right knee directly and also hitting his left lateral chest and armpit area on the lip of the tub. He did not hit his head. He had no loss of consciousness. He had immediate pain in his left lateral chest and some pain in his right knee. He has had persisting pain in his left lateral chest and armpit area since that time. He reports that his is a 10/10 in his left lateral chest and armpit area. He also has ecchymosis to his right knee and he rates that pain as an 8/10. The pains are a sharp pain. The pain in his chest is worse with breathing, palpation and movement. He has had some nausea associated with this but no vomiting. He has been able to drink liquids okay. He has no abdominal pain. He does feel somewhat short of breath on a regular basis secondary to his COPD and he feels that his shortness of breath is somewhat worse. There are no other associated signs or symptoms. There are no other modifying factors. Onset: Other (10/30/2018) Duration: Constant, Getting Worse (Left axillary and lateral chest pain seems to be getting worse) Location: Reports: Chest, Lower Extremity, Right (Right knee pain with ecchymosis and swelling) Quality: Reports: Sharp Severity: Severe Improves with: Reports: Rest (Slightly) Worsens with: Reports: Breathing, Other (Palpation of the area), Movement Context: Reports: Activity (As above.) Associated Symptoms: Reports: Chest Pain, Nausea/Vomiting, Shortness of Breath Treatments EDGERMAN: Reports: Other (see below) (Nothing) LEFT RIB Pain Score (Numeric/FACES): 10 - Related Data Allergies Allergy/AdvReac Type Severity Reaction Status Date / Time No Known Allergies Allergy Verified 11/01/18 13:32 Home Meds: Home Meds Acetaminophen [Mapap] 500 mg PO Q6H PRN 05/04/18 [History] Albuterol [Ventolin HFA] 1 - 2 puff IH Q4H PRN 05/04/18 [History] Amitriptyline [Elavil] 50 - 100 mg PO BEDTIME PRN 05/04/18 [History] Nicotine [Habitrol] 21 mg TD DAILY 05/04/18 [History] Glimepiride [Amaryl] 1 mg PO DAILY 11/01/18 [History] Hydrocodone/Acetaminophen [Chelsea 5-325 Tablet] 1 - 2 tab PO Q6H PRN #20 tablet 11/01/18 [Rx] metFORMIN [Glucophage] 1,000 mg PO DAILY 11/01/18 [History] Past Medical History Cardiovascular History: Reports: High Cholesterol, Hypertension Respiratory History: Reports: Bronchitis, Recurrent, COPD Neurological History: Reports: Headaches, Chronic Psychiatric History: Reports: Anxiety, Depression Other Psychiatric History: past 2-3 months Endocrine/Metabolic History: Reports: Diabetes, Type II, Obesity/BMI 30+ - Past Surgical History Musculoskeletal Surgical History: Reports: Other (See Below) Other Musculoskeletal Surgeries/Procedures:: right knee procedure Social & Family History - Tobacco Use Smoking Status *Q: Former Smoker (Quit smoking 05/04/2018.) - Caffeine Use Caffeine Use: Reports: Coffee - Alcohol Use Alcohol Use History: No - Living Situation & Occupation Occupation: Unemployed (Secondary to his COPD.) Social History Comment: He was brought into the emergency department by a friend via POV. ED ROS GENERAL - Review of Systems Review Of Systems: See Below Constitutional: Reports: No Symptoms HEENT: Reports: No Symptoms Respiratory: Reports: Shortness of Breath (Chronic but somewhat worse after this accident and injury to his left axillary area and lateral chest), Cough ( Chronic). Denies: Hemoptysis Cardiovascular: Reports: Chest Pain (Left lateral chest pain) GI/Abdominal: Reports: Nausea. Denies: Abdominal Pain, Vomiting : Reports: No Symptoms. Denies: Hematuria Musculoskeletal: Reports: Other (Right knee pain with swelling) Skin: Reports: Bruising (2 right knee) Neurological: Reports: No Symptoms (No loss of consciousness) Hematologic/Lymphatic: Reports: No Symptoms (He is on no chronic anticoagulation.) ED EXAM, GENERAL - Physical Exam Exam: See Below Exam Limited By: Uncooperative General Appearance: Alert, Moderate Distress Eye Exam: Bilateral Eye: EOMI, Normal Inspection, PERRL Ears: Normal External Exam Ear Exam: Bilateral Ear: Auricle Normal Nose: Normal Inspection, Normal Mucosa, No Blood Throat/Mouth: Normal Inspection, Normal Oropharynx, Normal Voice, No Airway Compromise Head: Atraumatic, Normocephalic Neck: Normal Inspection, Supple, Non-Tender, Full Range of Motion Respiratory/Chest: No Respiratory Distress, No Accessory Muscle Use, Wheezing ( Bilaterally that clears with cough.), Other (Tender to palpation over the left upper lateral chest in the pre-axillary area of the chest) Peripheral Pulses: 2+: Radial (L), Radial (R) GI/Abdominal: Normal Bowel Sounds, Soft, Non-Tender, No Mass Back Exam: Normal Inspection Extremities: Normal Capillary Refill, Other (Ecchymosis and swelling to right anterior knee. No crepitus or bony deformity palpated.) Neurological: Alert, Oriented, CN II-XII Intact, No Motor/Sensory Deficits Skin Exam: Warm, Dry, Intact, Normal Color, No Rash Course - Vital Signs Last Recorded V/S: Last Vital Signs Temp 36.3 C 11/01/18 13:20 Pulse 102 H 11/01/18 13:20 Resp 18 11/01/18 13:20 BP 164/80 H 11/01/18 13:20 Pulse Ox 93 L 11/01/18 13:20 - Orders/Labs/Meds Orders: Active Orders 24 hr Category Date Time Status Chest 2V [CR] Stat Exams 11/01/18 14:54 Taken Knee 3V Rt [CR] Stat Exams 11/01/18 14:32 Ordered Ribs 3V wo Chest Lt [CR] Stat Exams 11/01/18 13:54 Ordered Meds: Medications Discontinued Medications Generic Name Dose Route Start Last Admin Trade Name Freq PRN Reason Stop Dose Admin Hydrocodone Bitart/Acetaminophen 2 tab 11/01/18 13:54 11/01/18 14:12 Chelsea 325-5 Mg PO 11/01/18 13:55 2 tab ONETIME ONE Administration Ondansetron HCl 4 mg 11/01/18 13:54 11/01/18 14:13 Zofran Odt PO 11/01/18 13:55 4 mg ONETIME ONE Administration - Radiology Interpretation Free Text/Narrative:: Right knee x-ray shows no definite fracture. Chest x-ray PA and lateral shows no hemothorax or pneumothorax. He does have hyperexpanded lungs consistent with COPD. Left rib views showed no obvious displaced fracture on my read but he certainly clinically has a rib fracture or to in his left upper lateral chest. - Re-Assessments/Exams Free Text/Narrative Re-Assessment/Exam: 11/01/18 15:24: He reports that his pain is improved. It is an 8/10 and seems to be decreasing and he does not appear to be in any respiratory distress. He has been vitally stable. He did get some dizziness after taking the hydrocodone but that has subsided. His O2 saturation was 92% on room air and his blood pressure and pulse have been stable. The x-ray of his right knee showed no definite fracture and the chest x-ray showed no evidence of hemo-or pneumothorax. I did not see a definite rib fracture but he clinically has 1 or 2 rib fractures. The patient certainly is at risk for respiratory decompensation because of his COPD and I discussed with him the importance of holding his chest and taking deep breaths frequently to keep his lungs expanded. I have also discussed reasons to return to the emergency department for reevaluation. The patient is comfortable with plans for discharge. 11/01/18 15:27 Departure - Departure Time of Disposition: 15:27 Disposition: Home, Self-Care 01 Condition: Good Clinical Impression: Contusion of right knee, initial encounter, Multiple fractures of ribs, left side, initial encounter for closed fracture Fall from slipping Qualifiers: Encounter type: initial encounter Qualified Code(s): W01.0XXA - Fall on same level from slipping, tripping and stumbling without subsequent striking against object, initial encounter COPD (chronic obstructive pulmonary disease) Qualifiers: COPD type: unspecified COPD Qualified Code(s): J44.9 - Chronic obstructive pulmonary disease, unspecified - Discharge Information Prescriptions: Hydrocodone/Acetaminophen [Chelsea 5-325 Tablet] 1 - 2 tab PO Q6H PRN #20 tablet PRN Reason: Moderate to severe pain Instructions: Fall Prevention in the Home, Adult, [id number], Rib Fracture, [id number] Referrals: Clemente Mark PA [Primary Care Provider] - Additional Instructions: The x-ray of your chest showed no evidence of bleeding in your lung or air around your lung. I also did not see a definite displaced fracture of your ribs but I suspect that you have multiple fractures of the ribs on the left side (at least 2). The x-ray of your right knee showed no definite fracture. You should have activity as tolerated. You should hold your chest and take deep breaths frequently to keep your lungs expanded and to try to prevent pneumonia. You may take ibuprofen or Aleve as needed for your pain. Medication as prescribed for more severe pain (hydrocodone 5/325). Follow-up with your primary doctor as needed. Back to the emergency department for worse breathing, fever, coughing of blood, abdominal pain, unrelenting vomiting or any other concerning sign or symptom. - My Orders Last 24 Hours: My Active Orders 11/01/18 13:54 Ribs 3V wo Chest Lt [CR] Stat 11/01/18 14:32 Knee 3V Rt [CR] Stat 11/01/18 14:54 Chest 2V [CR] Stat - Assessment/Plan Last 24 Hours: My Active Orders 11/01/18 13:54 Ribs 3V wo Chest Lt [CR] Stat 11/01/18 14:32 Knee 3V Rt [CR] Stat 11/01/18 14:54 Chest 2V [CR] Stat
[2018-11-01] MEDS ORDERED: Acetaminophen/HYDROcodone 325-5 MG Tab PO ONE (13:54)
[2018-11-01] MEDS ORDERED: Ondansetron 4 MG Tab.DIS PO ONE (13:54)
[2018-11-01 15:31] VITALS: BP 153/81; PULSE 89
--- NOTE | 2018-11-02 11:44 | CR ---
INDICATION: Fall with injury to left upper lateral chest. LEFT RIBS WITHOUT CHEST: Ten images of the left ribs were obtained 11/01/18 - no comparisons. What appears to be a metallic foreign body is noted overlying the left humerus at the greater tuberosity area - humeral neck. No displaced rib fracture site could be identified. MTDD
--- NOTE | 2018-11-02 11:47 | CR ---
INDICATION: Chest pain, fall. CHEST: Two PA views and a lateral view of the chest 11/01/18 were compared with 05/04/18 and again revealed the heart to be normal in size and shape. Similar markings are noted without a definite consolidating pneumonia or effusion. The upper lung field pulmonary vasculature appeared somewhat prominent, raising question of fluid overload or other abnormalities, such as renal failure. The heart did not appear to be enlarged. The aorta may be minimally calcified in the arch area. Flattened diaphragm leaves and prominent AP diameter with mild hyperaeration suggests the possibility of COPD. Bony thorax appears to be intact. IMPRESSION: 1. Somewhat prominent upper lung field pulmonary vasculature, raising question of pulmonary vascular congestion - correlate clinically as to etiology, as the heart did not appear enlarged. 2. Probable COPD. 3. Suggestion of minimal calcification in the arch of the aorta. MTDD
--- NOTE | 2018-11-02 11:53 | CR ---
INDICATION: Follow with injury to right knee. RIGHT KNEE: Three views of the right knee were obtained 11/01/18 and revealed prominence at the suprapatellar bursa, raising question of a knee joint effusion. There is a curvilinear lucency overlying the medial tibial plateau, which may represent vacuum joint phenomenon. A definite acute fracture or dislocation was not identified. If symptoms persist - if occult fracture site is suspected clinically, additional examination may be warranted, such as MRI or nuclear bone imaging. Also, repeat x-ray of the right knee may be helpful. LEED
== END 2018-11-01 15:36 | disposition home or self-care (01) ==
LOC: FB.ED 13:19
DX: S22.42XA Multiple fractures of ribs, left side, initial encounter for closed fracture (principal); S80.01XA Contusion of right knee, initial encounter; J44.9 Chronic obstructive pulmonary disease, unspecified; I10 Essential (primary) hypertension; E11.9 Type 2 diabetes mellitus without complications; F41.9 Anxiety disorder, unspecified; F32.9 Major depressive disorder, single episode, unspecified; E66.9 Obesity, unspecified; Z68.36 Body mass index [BMI] 36.0-36.9, adult; Z87.891 Personal history of nicotine dependence; Z79.84 Long term (current) use of oral hypoglycemic drugs; Z79.899 Other long term (current) drug therapy; W01.0XXA Fall on same level from slipping, tripping and stumbling without subsequent striking against object, initial encounter
CPT/HCPCS: 71046; 71101; 73562; 99283; A9270

== ENCOUNTER 2020-01-26 14:08 | Inpatient (IN) | payer MEDICAID ==
[2020-01-26] MEDS ORDERED: Ondansetron 4 MG Tab.DIS PO PRN (15:29)
[2020-01-26] MEDS ORDERED: Acetaminophen 500 MG Tab PO PRN (15:33)
[2020-01-26] MEDS ORDERED: ceFAZolin 1 GM in Sodium Chloride 0.9% 50 ML IV SCH (15:45)
[2020-01-26] MEDS: Acetaminophen/HYDROcodone 325-5 MG Tab PO PRN ×2 (15:54→20:19)
[2020-01-26] MEDS ORDERED: ceFAZolin 1 GM Vial IVPUSH SCH (16:00)
[2020-01-26] MEDS ORDERED: Clindamycin in 0.9 % Sod Chlor 600 MG/50 ML BAG IV SCH ×3 (16:00)
[2020-01-26] MEDS: Sodium Chloride 0.9% 1,000 ML IV SCH (16:03)
[2020-01-26] MEDS ORDERED: Sodium Chloride 0.65% Nasal Spray 45 ML Bottle NASBOTH PRN (16:43)
[2020-01-26] MEDS ORDERED: Albuterol 8 GM Inhaler INH PRN (16:43)
[2020-01-26] MEDS ORDERED: Albuterol/Ipratropium 3.0-0.5 MG/3 ML Neb Soln INH PRN (16:43)
[2020-01-26] MEDS ORDERED: Amitriptyline 25 MG Tab PO PRN (16:43)
--- NOTE | 2020-01-26 16:54 | PCM.HP.2 ---
H&P History of Present Illness - General Date of Service: 01/26/20 Admit Problem/Dx: Admission Diagnosis/Problem Admission Diagnosis/Problem Cellulitis Source of Information: Patient History Limitations: Reports: No Limitations - History of Present Illness Initial Comments - Free Text/Narative: 60-year-old male patient said 10 day history of cellulitis. He was treated initially with doxycycline and then was improving so use Bactrim and cephalexin. He came today and the treating physician Clemente Mark stated that the redness is better but the pain was worse. He's had elevated white count and increased sedimentation rate so they sent him here for IV therapy. Patient has no history of gout. He does not feel any fevers or chills but is sure is a lateral left ankle pain is lateral. He doesn't issue diabetes and COPD. - Related Data Allergies/Adverse Reactions: Allergies Allergy/AdvReac Type Severity Reaction Status Date / Time No Known Allergies Allergy Verified 11/01/18 13:32 Home Medications: Home Meds Acetaminophen [Mapap] 500 mg PO Q6H PRN 05/04/18 [History] Albuterol [Ventolin HFA] 1 - 2 puff IH Q4H PRN 05/04/18 [History] Glimepiride [Amaryl] 4 mg PO DAILY 11/01/18 [History] Hydrocodone/Acetaminophen [[place] 5-325 Tablet] 1 - 2 tab PO Q6H PRN #20 tablet 11/01/18 [Rx] Albuterol/Ipratropium [DuoNeb 3.0-0.5 MG/3 ML] 3 ml IH QID PRN 01/26/20 [History] Amitriptyline [Elavil] 25 mg PO BEDTIME PRN 01/26/20 [History] Budesonide/Formoterol Fumarate [Symbicort 160-4.5 Mcg Inhaler] 1 inh INH BID 01/26/20 [History] Cyanocobalamin (Vitamin B-12) [B-12] 1,000 mcg PO DAILY 01/26/20 [History] Erythromycin Base [Erythromycin 0.5% Ophth Oint] 1 applic OP BEDTIME 01/26/20 [History] Gabapentin [Neurontin] 1,200 mg PO TID 01/26/20 [History] Liraglutide [Victoza] 1.8 mg SQ DAILY 01/26/20 [History] Losartan [Cozaar] 50 mg PO DAILY 01/26/20 [History] Sodium Chloride [Saline Nasal [place]] 1 spray NASBOTH Q2H PRN 01/26/20 [History] Sulfamethoxazole/Trimethoprim [Bactrim Ds Tablet] 1 tab PO BID 01/26/20 [History] atorvaSTATin [Lipitor] 10 mg PO DAILY 01/26/20 [History] buPROPion [Wellbutrin] 150 mg PO DAILY 01/26/20 [History] cephALEXin [Cephalexin] 500 mg PO Q6H 01/26/20 [History] metFORMIN HCl [Metformin HCl ER] 1,000 mg PO DAILY 01/26/20 [History] Past Medical History HEENT History: Reports: Cataract Cardiovascular History: Reports: High Cholesterol, Hypertension Respiratory History: Reports: Bronchitis, Recurrent, COPD Other Musculoskeletal History: Lt hand had 2 fingers reattached Neurological History: Reports: Headaches, Chronic Psychiatric History: Reports: Anxiety, Depression Other Psychiatric History: past 2-3 months Endocrine/Metabolic History: Reports: Diabetes, Type II, Obesity/BMI 30+ - Infectious Disease History Infectious Disease History: Reports: None - Past Surgical History Other Musculoskeletal Surgeries/Procedures:: Cellulitis left ankle Social & Family History - Family History Family Medical History: Noncontributory - Tobacco Use Tobacco Use Status *Q: Former Tobacco User Years of Tobacco use: 25 Packs/Tins Daily: 0.5 Used Tobacco, but Quit: Yes Month/Year Tobacco Last Used: 1994 Second Hand Smoke Exposure: Yes - Caffeine Use Caffeine Use: Reports: None - Recreational Drug Use Recreational Drug Use: No - Living Situation & Occupation Occupation: Unemployed (Secondary to his COPD.) H&P Review of Systems - Review of Systems: Review Of Systems: See Below General: Reports: No Symptoms HEENT: Reports: No Symptoms Pulmonary: Reports: No Symptoms Cardiovascular: Reports: No Symptoms Gastrointestinal: Reports: No Symptoms Genitourinary: Reports: No Symptoms Musculoskeletal: Reports: Joint Pain, Joint Swelling Skin: Reports: No Symptoms Psychiatric: Reports: No Symptoms Neurological: Reports: No Symptoms Hematologic/Lymphatic: Reports: No Symptoms Immunologic: Reports: No Symptoms Exam - Exam Exam: See Below - Vital Signs Weight: 230 lb - Exam General: Alert, Oriented, Cooperative HEENT: Hearing Intact, Posterior Pharynx Clear, TMs Clear Neck: Supple, Trachea Midline Lungs: Clear to Auscultation, Normal Respiratory Effort Cardiovascular: Regular Rate, Regular Rhythm. No: Systolic Murmur GI/Abdominal Exam: Normal Bowel Sounds, Soft, Non-Tender, No Organomegaly, No Distention, No Mass Extremities: No Pedal Edema, Other (Left ankle has pain on palpation lateral. There is very marked around the lateral list and is maybe just a little bit red but very faint. He does have good dorsalis pedis pulse on the left foot.) Neuro Extensive - Mental Status: Alert, Oriented x3, Normal Cognition, Memory Intact Psychiatric: Alert, Normal Affect, Normal Mood - Patient Data Lab Results Last 24 hrs: Laboratory Results - last 24 hr 01/26/20 01/26/20 01/26/20 Range/Units 15:55 15:55 15:55 WBC 17.0 H (4.5-12.0) X10-3/uL RBC 4.10 L (4.30-5.75) x10(6)uL Hgb 14.4 (13.5-17.8) g/dL Hct 42.7 (30.0-51.3) % MCV 104.2 H (80-96) fL MCH 35.2 H (27.7-33.6) pg MCHC 33.8 (32.2-35.4) g/dL RDW 13.9 (11.5-15.5) % Plt Count 249 (125-369) X10(3)uL MPV 8.7 (7.4-10.4) fL Add Manual Diff Yes Neutrophils % (Manual) 80 (46-82) % Band Neutrophils % 2 (0-6) % Lymphocytes % (Manual) 12 L (13-37) % Monocytes % (Manual) 4 (4-12) % Eosinophils % (Manual) 2 (0-5) % Sodium 135 (135-145) mmol/L Potassium 4.6 (3.5-5.3) mmol/L Chloride 97 L D (100-110) mmol/L Carbon Dioxide 32 (21-32) mmol/L BUN 24 H (7-18) mg/dL Creatinine 1.4 H (0.70-1.30) mg/dL Est Cr Clr Drug Dosing 57.21 mL/min Estimated GFR (MDRD) 52 L (>60) BUN/Creatinine Ratio 17.1 (9-20) Glucose 150 H (80-116) mg/dL Calcium 10.1 (8.6-10.2) mg/dL Total Bilirubin 0.5 (0.1-1.3) mg/dL AST 24 D (5-25) IU/L ALT 37 H (12-36) U/L Alkaline Phosphatase 109 (56-112) IU/L C-Reactive Protein 14.3 H* (0.5-0.9) mg/dL Total Protein 8.5 H (6.0-8.0) g/dL Albumin 3.2 (3.2-4.6) g/dL Globulin 5.3 g/dL Albumin/Globulin Ratio 0.6 Result Diagrams: 01/26/20 15:55 01/26/20 15:55 - Problem List (1) Cellulitis SNOMED Code(s): 394778487 ICD Code: L03.90 - CELLULITIS, UNSPECIFIED Status: Acute Current Visit: Yes Problem List Initiated/Reviewed/Updated: Yes Orders Last 24hrs: Active Orders 24 hr Category Date Time Status Patient Status [ADT] Routine ADT 01/26/20 15:29 Active Blood Glucose Check, Bedside [RC] TIDMEALS Care 01/26/20 15:29 Active Oxygen Therapy [RC] PRN Care 01/26/20 15:29 Active RT Aerosol Therapy [RC] ASDIRECTED Care 01/26/20 16:44 Ordered RT Post Treatment Assessment [RC] Click to Edit Care 01/26/20 16:44 Ordered Up ad Yanni [RC] ASDIRECTED Care 01/26/20 15:29 Active VTE/DVT Education [RC] Per Unit Routine Care 01/26/20 15:29 Active Vital Signs [RC] Q4H Care 01/26/20 15:29 Active Consistent Carbohydrate Diet [DIET] Diet 01/26/20 Dinner Active CULTURE BLOOD [BC] Urgent Lab 01/26/20 15:55 Received CULTURE BLOOD [BC] Urgent Lab 01/26/20 16:00 Received UA W/MICROSCOPIC [URIN] Routine Lab 01/26/20 15:29 Ordered URIC ACID [CHEM] Routine Lab 01/26/20 16:46 Ordered Acetaminophen [Tylenol Extra Strength] Med 01/26/20 15:33 Active 500 mg PO Q6H PRN Acetaminophen/HYDROcodone [[place] 325-5 MG] Med 01/26/20 15:29 Active 1 tab PO Q4H PRN Albuterol [Ventolin HFA] Med 01/26/20 16:43 Ordered 2 puff INH Q4H PRN Albuterol/Ipratropium [DuoNeb 3.0-0.5 MG/3 ML] Med 01/26/20 16:43 Ordered 3 ml INH QID PRN Amitriptyline [Elavil] Med 01/26/20 16:43 Ordered 25 mg PO BEDTIME PRN Budesonide/Formoterol Fumarate [Symbicort 160-4.5 Mcg Med 01/26/20 15:45 Ordered Inhaler] 2 inh INH ASDIRECTED Clindamycin in 0.9 % Sod Chlor [Cleocin in NS] Med 01/26/20 16:00 Active 600 mg in 50 ml IV Q6H Enoxaparin [Lovenox] Med 01/26/20 17:00 Ordered 40 mg SUBCUT Q24H Gabapentin [Neurontin] Med 01/26/20 21:00 Ordered 1,200 mg PO TID Glimepiride Med 01/27/20 09:00 Active 4 mg PO DAILY Liraglutide [Victoza] Med 01/27/20 09:00 Active 1.8 mg SUBCUT DAILY Losartan [Cozaar] Med 01/27/20 09:00 Ordered 50 mg PO DAILY Ondansetron [Zofran ODT] Med 01/26/20 15:29 Active 4 mg PO Q4H PRN Sodium Chloride 0.65% [[place] Nasal [place]] Med 01/26/20 16:43 Ordered 1 spray NASBOTH Q2H PRN Sodium Chloride 0.9% [Normal Saline] 1,000 ml Med 01/26/20 15:30 Active IV ASDIRECTED atorvaSTATin [Lipitor] Med 01/27/20 09:00 Active 10 mg PO DAILY buPROPion [Wellbutrin] Med 01/27/20 09:00 Active 150 mg PO DAILY ceFAZolin [Ancef] Med 01/26/20 17:00 Active 1 gm IVPUSH Q8H metFORMIN [Glucophage XR] Med 01/27/20 09:00 Ordered 1,000 mg PO DAILY Blood Culture x2 Reflex Set [OM.PC] Urgent Oth 01/26/20 15:29 Ordered Resuscitation Status Routine Resus Stat 01/26/20 15:29 Ordered Medication Orders Acetaminophen (Tylenol Extra Strength) 500 mg PO Q6H PRN PRN Reason: pain or fever Hydrocodone Bitart/Acetaminophen ([place] 325-5 Mg) 1 tab PO Q4H PRN PRN Reason: Pain (moderate 4-6) Last Admin: 01/26/20 15:54 Dose: 1 tab Documented by: STEFFEN Albuterol (Ventolin Hfa) 0 gm INH Q4H PRN PRN Reason: Shortness of Breath Albuterol/Ipratropium (Duoneb 3.0-0.5 Mg/3 Ml) 3 ml INH QID PRN PRN Reason: Shortness of Breath Amitriptyline HCl (Elavil) 25 mg PO BEDTIME PRN PRN Reason: Sleep Atorvastatin Calcium (Lipitor) 10 mg PO DAILY [facility] Bupropion HCl (Wellbutrin) 150 mg PO DAILY [facility] Cefazolin Sodium (Ancef) 1 gm IVPUSH Q8H [facility] Enoxaparin Sodium (Lovenox) 40 mg SUBCUT Q24H [facility] Gabapentin (Neurontin) 1,200 mg PO TID [facility] Glimepiride (Glimepiride) 4 mg PO DAILY [facility] Sodium Chloride (Normal Saline) 1,000 mls @ 125 mls/hr IV ASDIRECTED [facility] Last Admin: 01/26/20 16:03 Dose: 125 mls/hr Documented by: STEFFEN Clindamycin/Sodium Chloride (Cleocin In Ns) 600 mg in 50 mls @ 100 mls/hr IV Q6H [facility] Last Admin: 01/26/20 16:34 Dose: 100 mls/hr Documented by: STEFFEN Liraglutide (Victoza) 1.8 mg SUBCUT DAILY [facility] Losartan Potassium (Cozaar) 50 mg PO DAILY [facility] Metformin HCl (Glucophage Xr) 1,000 mg PO DAILY [facility] Non-Formulary Medication (Budesonide/Formoterol Fumarate [Symbicort 160-4.5 Mcg Inhaler]) 2 inh INH ASDIRECTED [facility] Ondansetron HCl (Zofran Odt) 4 mg PO Q4H PRN PRN Reason: nausea, able to take PO Sodium Chloride ([place] Nasal [place]) 0 ml NASBOTH Q2H PRN PRN Reason: Dryness Assessment/Plan Comment:: 1. Admit inpatient. 2. Full code. 3. Up ad yanni. 4. Clindamycin and Ancef for antibiotics IV. 5. CBC, Chem-12, UA, sedimentation rate, blood cultures, uric acid 6. Diabetic diet with Accu-Cheks 3 times a day 7. Reviewed his home medication and started most of them today. 8. Lovenox for clot prophylaxis. 9. X-ray done in the clinic and look for medical records sent by his primary provider. - Mortality Measure Prognosis:: Good
[2020-01-26] MEDS: Enoxaparin 40 MG/0.4 ML Syringe SUBCUT SCH (17:09)
[2020-01-26] MEDS: Indomethacin 25 MG Cap PO SCH (17:11)
[2020-01-26] MEDS: ceFAZolin 1 GM Vial IVPUSH SCH (17:18)
[2020-01-26] MEDS: Formoterol/Mometasone 200-5 MCG 8.8 GM Inhaler IH SCH (20:17)
[2020-01-26] MEDS: Gabapentin 400 MG Cap PO SCH (20:18)
[2020-01-26] MEDS ORDERED: Gabapentin 600 MG Tab PO SCH (21:00)
[2020-01-27] MEDS: Sodium Chloride 0.9% 1,000 ML IV SCH (00:20)
[2020-01-27] MEDS: Acetaminophen/HYDROcodone 325-5 MG Tab PO PRN ×2 (00:21→04:22)
[2020-01-27] MEDS: ceFAZolin 1 GM Vial IVPUSH SCH ×3 (00:27→17:34)
[2020-01-27] MEDS: Clindamycin in 0.9 % Sod Chlor 600 MG/50 ML BAG IV SCH ×3 (00:31→16:04)
[2020-01-27] MEDS ORDERED: HYDROmorphone 2 MG/ML SDV IM ONE (04:32)
[2020-01-27] MEDS: Morphine 2 MG/ML SYRINGE IVPUSH PRN ×2 (07:54→10:08)
--- NOTE | 2020-01-27 08:09 | PCM.PN ---
- General Info Date of Service: 01/27/20 Admission Dx/Problem (Free Text): Patient states he is very uncomfortable he didn't sleep at all last night and he didn't sleep well last night even though he had some hydrocodone. He was given a shot of 1 mg of Dilaudid IV by the ER doc and that did not help either. She is he feels the pain is worse today. He denies fevers or chills. - Patient Data Vitals - Most Recent: Last Vital Signs Temp 98 F 01/27/20 04:30 Pulse 79 01/27/20 04:30 Resp 20 01/27/20 04:30 BP 121/72 01/27/20 04:30 Pulse Ox 91 L 01/27/20 04:30 Weight - Most Recent: 230 lb I&O - Last 24 Hours: Intake & Output 01/26/20 01/27/20 01/27/20 22:59 06:59 14:59 Intake Total 511 1078 Balance 511 1078 Lab Results Last 24 Hours: Laboratory Results - last 24 hr 01/26/20 01/26/20 01/26/20 Range/Units 15:55 15:55 15:55 WBC 17.0 H (4.5-12.0) X10-3/uL RBC 4.10 L (4.30-5.75) x10(6)uL Hgb 14.4 (13.5-17.8) g/dL Hct 42.7 (30.0-51.3) % MCV 104.2 H (80-96) fL MCH 35.2 H (27.7-33.6) pg MCHC 33.8 (32.2-35.4) g/dL RDW 13.9 (11.5-15.5) % Plt Count 249 (125-369) X10(3)uL MPV 8.7 (7.4-10.4) fL Add Manual Diff Yes Neutrophils % (Manual) 80 (46-82) % Band Neutrophils % 2 (0-6) % Lymphocytes % (Manual) 12 L (13-37) % Monocytes % (Manual) 4 (4-12) % Eosinophils % (Manual) 2 (0-5) % Sodium 135 (135-145) mmol/L Potassium 4.6 (3.5-5.3) mmol/L Chloride 97 L D (100-110) mmol/L Carbon Dioxide 32 (21-32) mmol/L BUN 24 H (7-18) mg/dL Creatinine 1.4 H (0.70-1.30) mg/dL Est Cr Clr Drug Dosing 57.21 mL/min Estimated GFR (MDRD) 52 L (>60) BUN/Creatinine Ratio 17.1 (9-20) Glucose 150 H (80-116) mg/dL POC Glucose (74-100) mg/dL Uric Acid (2.6-6.0) mg/dL Calcium 10.1 (8.6-10.2) mg/dL Total Bilirubin 0.5 (0.1-1.3) mg/dL AST 24 D (5-25) IU/L ALT 37 H (12-36) U/L Alkaline Phosphatase 109 (56-112) IU/L C-Reactive Protein 14.3 H* (0.5-0.9) mg/dL Total Protein 8.5 H (6.0-8.0) g/dL Albumin 3.2 (3.2-4.6) g/dL Globulin 5.3 g/dL Albumin/Globulin Ratio 0.6 Urine Color (YELLOW) Urine Appearance (CLEAR) Urine pH (5.0-6.5) Ur Specific [place] (1.010-1.025) Urine Protein (NEGATIVE) mg/dL Urine Glucose (UA) (NORMAL) mg/dL Urine Ketones (NEGATIVE) mg/dL Urine Occult Blood (NEGATIVE) Urine Nitrite (NEGATIVE) Urine Bilirubin (NEGATIVE) Urine Urobilinogen (NEGATIVE) mg/dL Ur Leukocyte Esterase (NEGATIVE) Urine RBC (0-5) Urine WBC (0-5) Ur Squamous Epith Cells (NS,R,O) Amorphous Sediment Urine Bacteria (NS) 01/26/20 01/26/20 01/26/20 Range/Units 15:55 17:11 22:30 WBC (4.5-12.0) X10-3/uL RBC (4.30-5.75) x10(6)uL Hgb (13.5-17.8) g/dL Hct (30.0-51.3) % MCV (80-96) fL MCH (27.7-33.6) pg MCHC (32.2-35.4) g/dL RDW (11.5-15.5) % Plt Count (125-369) X10(3)uL MPV (7.4-10.4) fL Add Manual Diff Neutrophils % (Manual) (46-82) % Band Neutrophils % (0-6) % Lymphocytes % (Manual) (13-37) % Monocytes % (Manual) (4-12) % Eosinophils % (Manual) (0-5) % Sodium (135-145) mmol/L Potassium (3.5-5.3) mmol/L Chloride (100-110) mmol/L Carbon Dioxide (21-32) mmol/L BUN (7-18) mg/dL Creatinine (0.70-1.30) mg/dL Est Cr Clr Drug Dosing mL/min Estimated GFR (MDRD) (>60) BUN/Creatinine Ratio (9-20) Glucose (80-116) mg/dL POC Glucose 154 H (74-100) mg/dL Uric Acid 4.4 (2.6-6.0) mg/dL Calcium (8.6-10.2) mg/dL Total Bilirubin (0.1-1.3) mg/dL AST (5-25) IU/L ALT (12-36) U/L Alkaline Phosphatase (56-112) IU/L C-Reactive Protein (0.5-0.9) mg/dL Total Protein (6.0-8.0) g/dL Albumin (3.2-4.6) g/dL Globulin g/dL Albumin/Globulin Ratio Urine Color Yellow (YELLOW) Urine Appearance Clear (CLEAR) Urine pH 5.0 (5.0-6.5) Ur Specific [place] 1.025 (1.010-1.025) Urine Protein Negative (NEGATIVE) mg/dL Urine Glucose (UA) Normal (NORMAL) mg/dL Urine Ketones Negative (NEGATIVE) mg/dL Urine Occult Blood Negative (NEGATIVE) Urine Nitrite Negative (NEGATIVE) Urine Bilirubin Small H (NEGATIVE) Urine Urobilinogen 1 H (NEGATIVE) mg/dL Ur Leukocyte Esterase Negative (NEGATIVE) Urine RBC 0-5 (0-5) Urine WBC 0-5 (0-5) Ur Squamous Epith Cells Occasional (NS,R,O) Amorphous Sediment Moderate Urine Bacteria Rare H (NS) 01/27/20 Range/Units 05:04 WBC (4.5-12.0) X10-3/uL RBC (4.30-5.75) x10(6)uL Hgb (13.5-17.8) g/dL Hct (30.0-51.3) % MCV (80-96) fL MCH (27.7-33.6) pg MCHC (32.2-35.4) g/dL RDW (11.5-15.5) % Plt Count (125-369) X10(3)uL MPV (7.4-10.4) fL Add Manual Diff Neutrophils % (Manual) (46-82) % Band Neutrophils % (0-6) % Lymphocytes % (Manual) (13-37) % Monocytes % (Manual) (4-12) % Eosinophils % (Manual) (0-5) % Sodium (135-145) mmol/L Potassium (3.5-5.3) mmol/L Chloride (100-110) mmol/L Carbon Dioxide (21-32) mmol/L BUN (7-18) mg/dL Creatinine (0.70-1.30) mg/dL Est Cr Clr Drug Dosing mL/min Estimated GFR (MDRD) (>60) BUN/Creatinine Ratio (9-20) Glucose (80-116) mg/dL POC Glucose 116 H (74-100) mg/dL Uric Acid (2.6-6.0) mg/dL Calcium (8.6-10.2) mg/dL Total Bilirubin (0.1-1.3) mg/dL AST (5-25) IU/L ALT (12-36) U/L Alkaline Phosphatase (56-112) IU/L C-Reactive Protein (0.5-0.9) mg/dL Total Protein (6.0-8.0) g/dL Albumin (3.2-4.6) g/dL Globulin g/dL Albumin/Globulin Ratio Urine Color (YELLOW) Urine Appearance (CLEAR) Urine pH (5.0-6.5) Ur Specific [place] (1.010-1.025) Urine Protein (NEGATIVE) mg/dL Urine Glucose (UA) (NORMAL) mg/dL Urine Ketones (NEGATIVE) mg/dL Urine Occult Blood (NEGATIVE) Urine Nitrite (NEGATIVE) Urine Bilirubin (NEGATIVE) Urine Urobilinogen (NEGATIVE) mg/dL Ur Leukocyte Esterase (NEGATIVE) Urine RBC (0-5) Urine WBC (0-5) Ur Squamous Epith Cells (NS,R,O) Amorphous Sediment Urine Bacteria (NS) Med Orders - Current: Current Medications Acetaminophen (Tylenol Extra Strength) 500 mg PO Q6H PRN PRN Reason: pain or fever Last Admin: 01/26/20 18:45 Dose: 500 mg Documented by: Albuterol (Ventolin Hfa) 0 gm INH Q4H PRN PRN Reason: Shortness of Breath Albuterol/Ipratropium (Duoneb 3.0-0.5 Mg/3 Ml) 3 ml INH QID PRN PRN Reason: Shortness of Breath Amitriptyline HCl (Elavil) 25 mg PO BEDTIME PRN PRN Reason: Sleep Last Admin: 01/26/20 20:20 Dose: 25 mg Documented by: Atorvastatin Calcium (Lipitor) 10 mg PO DAILY [facility] Bupropion HCl (Wellbutrin) 150 mg PO DAILY [facility] Cefazolin Sodium (Ancef) 1 gm IVPUSH Q8H [facility] Last Admin: 01/27/20 00:27 Dose: 1 gm Documented by: Enoxaparin Sodium (Lovenox) 40 mg SUBCUT Q24H [facility] Last Admin: 01/26/20 17:09 Dose: 40 mg Documented by: Gabapentin (Neurontin) 1,200 mg PO TID [facility] Last Admin: 01/26/20 20:18 Dose: 1,200 mg Documented by: Glimepiride (Glimepiride) 4 mg PO DAILY [facility] Clindamycin/Sodium Chloride (Cleocin In Ns) 600 mg in 50 mls @ 100 mls/hr IV Q8H [facility] Last Admin: 01/27/20 00:31 Dose: 100 mls/hr Documented by: Indomethacin (Indocin) 50 mg PO TIDMEALS [facility] Last Admin: 01/26/20 17:11 Dose: 50 mg Documented by: Liraglutide (Victoza) 1.8 mg SUBCUT DAILY [facility] Losartan Potassium (Cozaar) 50 mg PO DAILY [facility] Metformin HCl (Glucophage Xr) 1,000 mg PO DAILY [facility] Mometasone Furoate/Formoterol Fumar (Dulera 200-5 Mcg) 2 puff IH BID [facility] Last Admin: 01/26/20 20:17 Dose: 2 puff Documented by: Morphine Sulfate (Morphine) 2 mg IVPUSH Q2H PRN PRN Reason: Pain Last Admin: 01/27/20 07:54 Dose: 2 mg Documented by: Ondansetron HCl (Zofran Odt) 4 mg PO Q4H PRN PRN Reason: nausea, able to take PO Oxycodone/Acetaminophen (Percocet 325-5 Mg) 1 tab PO Q4H [facility] Sodium Chloride ([place] Nasal [place]) 0 ml NASBOTH Q2H PRN PRN Reason: Dryness Sodium Chloride (Saline Flush) 10 ml FLUSH ASDIRECTED PRN PRN Reason: Flush Discontinued Medications Hydrocodone Bitart/Acetaminophen ([place] 325-5 Mg) 1 tab PO Q4H PRN PRN Reason: Pain (moderate 4-6) Last Admin: 01/27/20 04:22 Dose: 1 tab Documented by: Hydromorphone HCl (Dilaudid) 1 mg IM ONETIME ONE Stop: 01/27/20 04:33 Last Admin: 01/27/20 04:58 Dose: 1 mg Documented by: Sodium Chloride (Normal Saline) 1,000 mls @ 125 mls/hr IV ASDIRECTED [facility] Last Admin: 01/27/20 00:20 Dose: 125 mls/hr Documented by: Clindamycin/Sodium Chloride (Cleocin In Ns) 600 mg in 50 mls @ 100 mls/hr IV Q6H [facility] Last Admin: 01/26/20 16:34 Dose: 100 mls/hr Documented by: - Exam General: Alert, Oriented, Other (Angry) Lungs: Normal Respiratory Effort Extremities: Other (Left ankle very minimal erythema and some swelling. I didn't retouched today because the patient was upset.) Sepsis Event Note - Evaluation Sepsis Screening Result: No Definite Risk - Focused Exam Vital Signs: Vital Signs Temp Pulse Resp BP Pulse Ox 01/27/20 04:30 98 F 79 20 121/72 91 L 01/26/20 23:54 18 - Problem List & Annotations (1) Cellulitis SNOMED Code(s): 072553989 Code(s): L03.90 - CELLULITIS, UNSPECIFIED Status: Acute Current Visit: Yes (2) Left ankle pain SNOMED Code(s): 057328720, 048007951 Code(s): M25.572 - PAIN IN LEFT ANKLE AND JOINTS OF LEFT FOOT Status: Acute Current Visit: Yes - Problem List Review Problem List Initiated/Reviewed/Updated: Yes - My Orders Last 24 Hours: My Active Orders 01/26/20 15:29 Patient Status [ADT] Routine Blood Glucose Check, Bedside [RC] TIDMEALS Oxygen Therapy [RC] PRN Up ad Yanni [RC] ASDIRECTED VTE/DVT Education [RC] DAILY Vital Signs [RC] 00,04,08,12,16,20 Ondansetron [Zofran ODT] 4 mg PO Q4H PRN Blood Culture x2 Reflex Set [OM.PC] Urgent Resuscitation Status Routine 01/26/20 15:33 Acetaminophen [Tylenol Extra Strength] 500 mg PO Q6H PRN 01/26/20 15:55 CULTURE BLOOD [BC] Urgent 01/26/20 16:00 CULTURE BLOOD [BC] Urgent 01/26/20 Dinner Consistent Carbohydrate Diet [DIET] 01/26/20 16:43 Albuterol [Ventolin HFA] 0 gm INH Q4H PRN Albuterol/Ipratropium [DuoNeb 3.0-0.5 MG/3 ML] 3 ml INH QID PRN Amitriptyline [Elavil] 25 mg PO BEDTIME PRN Sodium Chloride 0.65% [[place] Nasal [place]] 0 ml NASBOTH Q2H PRN 01/26/20 16:44 RT Aerosol Therapy [RC] ASDIRECTED 01/26/20 17:00 Enoxaparin [Lovenox] 40 mg SUBCUT Q24H ceFAZolin [Ancef] 1 gm IVPUSH Q8H 01/26/20 18:00 Indomethacin [Indocin] 50 mg PO TIDMEALS 01/26/20 21:00 Gabapentin [Neurontin] 1,200 mg PO TID Mometasone/Formoterol [Dulera 200-5 MCG] 2 puff IH BID 01/27/20 00:00 Clindamycin in 0.9 % Sod Chlor [Cleocin in NS] 600 mg in 50 ml IV Q8H 01/27/20 07:29 Morphine 2 mg IVPUSH Q2H PRN Convert IV to Saline Lock [OM.PC] Routine 01/27/20 07:30 Lwr Ext Joint wo Cont Lt [MR] Routine 01/27/20 07:32 C-REACTIVE PROTEIN [CHEM] Routine CBC WITH AUTO DIFF [HEME] Routine 01/27/20 07:45 Acetaminophen/oxyCODONE [Percocet 325-5 MG] 1 tab PO Q4H 01/27/20 07:58 Sodium Chloride 0.9% [Saline Flush] 10 ml FLUSH ASDIRECTED PRN 01/27/20 09:00 Glimepiride 4 mg PO DAILY Liraglutide [Victoza] 1.8 mg SUBCUT DAILY Losartan [Cozaar] 50 mg PO DAILY atorvaSTATin [Lipitor] 10 mg PO DAILY buPROPion [Wellbutrin] 150 mg PO DAILY metFORMIN [Glucophage XR] 1,000 mg PO DAILY - Plan Plan:: 1. MRI to rule out osteomyelitis 2. Percocet 5 x 3 25 mg scheduled every 4 hours. MS 2 mg every 2 hours when necessary for breakthrough pain. Monitor to make sure his respiratory rate is greater than 12. If it is less than 12 these medications need to stop. Narcan should be on an. 3. Repeat CBC and C-reactive protein this a.m. 4. DC IV fluids and saline lock IV.
[2020-01-27] MEDS: Acetaminophen/oxyCODONE 325-5 MG Tab PO SCH ×4 (08:58→19:38)
[2020-01-27] MEDS: Gabapentin 400 MG Cap PO SCH ×3 (08:59→20:30)
[2020-01-27] MEDS ORDERED: Liraglutide (rDNA Origin) 0.6 MG/0.1 ML 3 ML Pen SUBCUT SCH (09:00)
[2020-01-27] MEDS: metFORMIN 500 MG Tab.ER PO SCH (09:01)
[2020-01-27] MEDS: Indomethacin 25 MG Cap PO SCH ×3 (09:02→17:22)
[2020-01-27] MEDS: Losartan 50 MG Tab PO SCH (09:03)
[2020-01-27] MEDS: Formoterol/Mometasone 200-5 MCG 8.8 GM Inhaler IH SCH ×2 (09:03→20:25)
[2020-01-27] MEDS: Glimepiride 4 MG Tab PO SCH (09:04)
[2020-01-27] MEDS: atorvaSTATin 10 MG Tab PO SCH (09:05)
[2020-01-27] MEDS: Sodium Chloride 0.9% 10 ML Syringe FLUSH PRN ×3 (10:07→20:25)
[2020-01-27] MEDS ORDERED: Gadoteridol 279.3 MG/ML 20 ML SDV IV ONE (11:49)
[2020-01-27] MEDS: Enoxaparin 40 MG/0.4 ML Syringe SUBCUT SCH (17:22)
[2020-01-27] MEDS ORDERED: Vancomycin 1 GM SDV ONE (18:02)
[2020-01-27] MEDS ORDERED: Colchicine 0.6 MG Tab PO ONE ×2 (18:21→18:38)
[2020-01-27] MEDS: Colchicine 0.6 MG Tab PO ONE ×2 (18:21→19:02)
[2020-01-27] MEDS: Liraglutide (rDNA Origin) 0.6 MG/0.1 ML 3 ML Pen SUBCUT SCH (20:25)
[2020-01-28] MEDS: Acetaminophen/oxyCODONE 325-5 MG Tab PO PRN ×6 (00:05→21:37)
[2020-01-28] MEDS ORDERED: Vancomycin 1 GM SDV ONE (06:27)
[2020-01-28] MEDS: Sodium Chloride 0.9% 10 ML Syringe FLUSH PRN ×5 (07:14→22:47)
[2020-01-28] MEDS: Liraglutide (rDNA Origin) 0.6 MG/0.1 ML 3 ML Pen SUBCUT SCH ×2 (07:40→20:29)
[2020-01-28] MEDS ORDERED: Indomethacin 25 MG Cap PO ONE (08:40)
[2020-01-28] MEDS ORDERED: methylPREDNISolone Sodium Succinate 125 MG/2 ML SDV IVPUSH ONE (08:45)
[2020-01-28] MEDS: Formoterol/Mometasone 200-5 MCG 8.8 GM Inhaler IH SCH ×2 (09:00→20:31)
[2020-01-28] MEDS: Losartan 50 MG Tab PO SCH (09:00)
[2020-01-28] MEDS: metFORMIN 500 MG Tab.ER PO SCH (09:01)
[2020-01-28] MEDS: atorvaSTATin 10 MG Tab PO SCH (09:02)
[2020-01-28] MEDS: Glimepiride 4 MG Tab PO SCH (09:02)
[2020-01-28] MEDS: Gabapentin 400 MG Cap PO SCH ×3 (09:10→20:31)
--- NOTE | 2020-01-28 10:46 | PN ---
DATE SEEN: 01/28/2020 HISTORY: Flo is a 60-year-old man who is admitted to [facility] yesterday because of severe and persistent ankle pain. This started as an outpatient approximately 7 to 10 days ago. He woke up with itching and pain in the ankle and within 24 hours, it got so painful he could walk on it. He has not had any fever, chills, or symptoms of infection during this time. He had been on 2 courses of outpatient oral antibiotic without improvement and was admitted now. On admission, he was started on IV antibiotic. MRI of the lower extremity was done and results have come back showing acute inflammatory changes of the ankle with no evidence of osteomyelitis. The patient received colchicine 2 doses yesterday and reports he got pain after the colchicine. He says the pain has started to come back again now. PHYSICAL EXAMINATION: GENERAL: He is alert, comfortable while lying still. VITAL SIGNS: Blood pressure 109/65, pulse 88, temperature 98, respirations 18, O2 saturation 93% on room air. SKIN: Shows dull, reddish erythema about the ankle extending a few inches up onto the lower tibia, left foot. Dorsalis pedis pulses intact and knee joint appears normal. LABORATORY DATA: White count 13.7, hemoglobin 13.4. Glucose 206. CRP 18.9. ASSESSMENT: Acute inflammatory arthropathy, left ankle, consistent with gout. PLAN: I have sent off laboratory studies for rheumatoid arthritis, repeat CRP and sedimentation rate, uric acid. I will also give him a single dose of indomethacin 50 mg and 125 mg dose of methylprednisolone. If significantly hyperuricemic, add allopurinol. I anticipate discharge within 24 to 48 hours. /[id number] ADALID/NICHELLEL
[2020-01-28] MEDS: Morphine 2 MG/ML SYRINGE IVPUSH PRN ×2 (12:23→22:44)
[2020-01-28] MEDS: Enoxaparin 40 MG/0.4 ML Syringe SUBCUT SCH (17:24)
[2020-01-29] MEDS: Acetaminophen/oxyCODONE 325-5 MG Tab PO PRN (06:20)
[2020-01-29] MEDS ORDERED: methylPREDNISolone Sodium Succinate 125 MG/2 ML SDV IVPUSH ONE (08:14)
[2020-01-29] MEDS: Losartan 50 MG Tab PO SCH (08:18)
[2020-01-29] MEDS: atorvaSTATin 10 MG Tab PO SCH (08:18)
[2020-01-29] MEDS ORDERED: LORazepam 1 MG Tab PO ONE (08:19)
[2020-01-29] MEDS: metFORMIN 500 MG Tab.ER PO SCH (08:19)
[2020-01-29] MEDS: Glimepiride 4 MG Tab PO SCH (08:19)
[2020-01-29] MEDS: Formoterol/Mometasone 200-5 MCG 8.8 GM Inhaler IH SCH (08:19)
[2020-01-29 08:21] VITALS: BP 121/76
[2020-01-29] MEDS: Gabapentin 400 MG Cap PO SCH (08:30)
[2020-01-29] MEDS ORDERED: Sodium Chloride 0.9% 10 ML Syringe FLUSH PRN (08:36)
--- NOTE | 2020-01-29 08:59 | DISCH ---
DISCHARGE DATE: 01/29/2020 PRIMARY FINAL DIAGNOSIS: Acute synovitis, left ankle. OTHER DIAGNOSES: Chronic obstructive pulmonary disease, hyperlipidemia, anxiety, type 2 diabetes, hypertension. OPERATIONS: None. COMPLICATIONS: None. SUMMARY: Flo is a 60-year-old man who had been treated for over a week as an outpatient with different antibiotics for suspected cellulitis of his ankle that seemed to be slowly getting worse. He was admitted for further investigation and treatment and pain control. On admission, he was in significant amount of pain. He was given morphine for pain control. He was started on IV vancomycin for suspected cellulitis. MRI of the extremity was done showing synovitis centered around the ankle with inflammation extending upwards around the peroneal tendons. No sign of osteomyelitis. The patient was given 3 doses of colchicine, which had a fairly dramatic improvement in his pain. He was then started on steroids and given methylprednisolone 125 mg twice. His ankle pain improved significantly and the redness and swelling continued to improve. By 01/29/2020, he was anxious for discharge. He was sent home in improved condition to continue medications as follows. He is to finish his current prescriptions of: 1. Bactrim DS. 2. Cephalexin. 3. Prednisone 20 mg b.i.d. for the next 3 days, then begin a tapering course. 4. Hydrocodone 1 to 2 every 6 hours p.r.n. pain. 5. Erythromycin base ointment at bedtime. 6. B12 1000 mcg daily. 7. Metformin 1000 mg b.i.d. 8. Losartan 50 mg daily. 9. Victoza 1.8 mg subcu daily. 10.Glimepiride 4 mg daily. 11.Gabapentin 1200 mg t.i.d. 12.Bupropion 150 mg daily. 13.Symbicort 160 1 puff b.i.d. 14.Atorvastatin 10 mg daily. 15.Amitriptyline 25 mg bedtime. 16.Ventolin HFA every 4 hours p.r.n. 17.DuoNebs q.i.d. 18.Tylenol p.r.n. He is to have followup with Clemente Mark in 2 to 3 days in the office to recheck the ankle and begin the prednisone taper. He is to call should there be questions or problems prior to that time. /[phone] [id number] ADALID/CATALINA
[2020-01-29 10:16] VITALS: PULSE 81
[2020-01-29] MEDS ORDERED: predniSONE 10 MG Tab PO SCH (16:00)
== END 2020-01-29 11:23 | disposition home or self-care (01) | DRG 558 ==
LOC: FB.MS 14:25
PROVIDERS: ADMIT Family Medicine; ATTEND Family Medicine
DX: M65.9 Synovitis and tenosynovitis, unspecified (principal); L03.116 Cellulitis of left lower limb; M10.9 Gout, unspecified; E78.00 Pure hypercholesterolemia, unspecified; I10 Essential (primary) hypertension; J44.9 Chronic obstructive pulmonary disease, unspecified; F41.9 Anxiety disorder, unspecified; E11.9 Type 2 diabetes mellitus without complications; E78.5 Hyperlipidemia, unspecified; E66.9 Obesity, unspecified; Z79.84 Long term (current) use of oral hypoglycemic drugs; Z87.891 Personal history of nicotine dependence
CPT/HCPCS: 36415; 73723-LT; 80053; 81001; 82962; 84550; 85025; 85651; 86140; 86200; 86431; 87040; A9270-GY; A9579; J0690; J1170; J1650; J2270; J2930; J3370; J3490; J7030; J7050

== ENCOUNTER 2020-02-04 20:48 | Emergency (ER) | payer MEDICAID ==
--- NOTE | 2020-02-04 21:16 | EDM.PDOC ---
ED HPI GENERAL MEDICAL PROBLEM - General Chief Complaint: Diabetic Complaint Stated Complaint: High Blood Sugar Time Seen by Provider: 02/04/20 21:12 Source of Information: Reports: Patient, Old Records History Limitations: Reports: No Limitations - History of Present Illness INITIAL COMMENTS - FREE TEXT/NARRATIVE: Justin reports high blood sugars today, significance uniknown. He has experienced some polydipsia, but no polyuria, burning of hands or feet, or blurred vision;. He was hospitalized last week for a cellulitis of the L ankle. Later in the interview, he admitted to drinking a volume of grapefruit juice earlier today. L lat ankle Pain Score (Numeric/FACES): 6 - Related Data Allergies Allergy/AdvReac Type Severity Reaction Status Date / Time No Known Allergies Allergy Verified 02/04/20 20:58 Home Meds: Home Meds Acetaminophen [Mapap] 1,000 mg PO Q6H PRN 05/04/18 [History] Albuterol [Ventolin HFA] 1 - 2 puff IH Q4H PRN 05/04/18 [History] Glimepiride [Amaryl] 4 mg PO DAILY 11/01/18 [History] Albuterol/Ipratropium [DuoNeb 3.0-0.5 MG/3 ML] 3 ml IH QID PRN 01/26/20 [History] Amitriptyline [Elavil] 25 mg PO BEDTIME PRN 01/26/20 [History] Budesonide/Formoterol Fumarate [Symbicort 160-4.5 Mcg Inhaler] 1 inh INH BID 01/26/20 [History] Cyanocobalamin (Vitamin B-12) [B-12] 1,000 mcg PO DAILY 01/26/20 [History] Gabapentin [Neurontin] 1,200 mg PO TID 01/26/20 [History] Liraglutide [Victoza] 1.8 mg SQ DAILY 01/26/20 [History] Losartan [Cozaar] 50 mg PO DAILY 01/26/20 [History] Sodium Chloride [Saline Nasal [place]] 1 spray NASBOTH Q2H PRN 01/26/20 [History] atorvaSTATin [Lipitor] 10 mg PO DAILY 01/26/20 [History] buPROPion [Wellbutrin] 150 mg PO DAILY 01/26/20 [History] metFORMIN HCl [Metformin HCl ER] 1,000 mg PO DAILY 01/26/20 [History] predniSONE 20 mg PO BID #40 tablet 01/29/20 [Rx] Indomethacin [Indocin] 50 mg PO TID 02/04/20 [History] Past Medical History HEENT History: Reports: Cataract Cardiovascular History: Reports: High Cholesterol, Hypertension Respiratory History: Reports: Bronchitis, Recurrent, COPD Other Musculoskeletal History: Lt hand had 2 fingers reattached Neurological History: Reports: Headaches, Chronic Psychiatric History: Reports: Anxiety, Depression Other Psychiatric History: past 2-3 months Endocrine/Metabolic History: Reports: Diabetes, Type II, Obesity/BMI 30+ - Infectious Disease History Infectious Disease History: Reports: None - Past Surgical History Other Musculoskeletal Surgeries/Procedures:: Cellulitis left ankle Social & Family History - Family History Family Medical History: No Pertinent Family History - Caffeine Use Caffeine Use: Reports: None - Living Situation & Occupation Occupation: Unemployed (Secondary to his COPD.) ED ROS GENERAL - Review of Systems Review Of Systems: Comprehensive ROS is negative, except as noted in HPI. ED EXAM GENERAL NO PERIP PULSE - Physical Exam Exam: See Below Exam Limited By: No Limitations General Appearance: Alert, WD/WN, No Apparent Distress Eye Exam: Bilateral Eye: EOMI, Normal Inspection, PERRL Ears: Normal External Exam Nose: Normal Inspection Throat/Mouth: Normal Inspection Head: Normocephalic Neck: Normal Inspection, Supple, Non-Tender Respiratory/Chest: Lungs Clear Cardiovascular: Regular Rate, Rhythm GI/Abdominal: Soft, Non-Tender, No Mass (Male) Exam: Deferred Rectal (Males) Exam: Deferred Back Exam: Normal Inspection Extremities: Joint Swelling (R knee) Neurological: Alert, Oriented Psychiatric: Normal Affect, Anxious Skin Exam: Warm, Dry Lymphatic: No Adenopathy Course - Vital Signs Text/Narrative:: Following assessment, I administered Humulin U100 10 u of insulin, and administered 1L NS. A follow up BS 302 mg%. Last Recorded V/S: Last Vital Signs Temp 36.7 C 02/04/20 20:48 Pulse 102 H 02/04/20 20:48 Resp 22 H 02/04/20 20:48 BP 142/70 H 02/04/20 20:48 Pulse Ox 94 L 02/04/20 20:48 - Orders/Labs/Meds Orders: Active Orders 24 hr Category Date Time Status Dextrose 50% in Water Med 02/04/20 21:48 Active 50 ml IVPUSH ASDIRECTED PRN Glucagon,Human Recombinant [GlucaGen] Med 02/04/20 21:48 Active 1 mg IM ASDIRECTED PRN Sodium Chloride 0.9% [Normal Saline] 1,000 ml Med 02/04/20 22:00 Active IV ASDIRECTED Medication Orders Dextrose/Water (Dextrose 50% In Water) 50 ml IVPUSH ASDIRECTED PRN PRN Reason: Hypoglycemia Glucagon (Glucagen) 1 mg IM ASDIRECTED PRN PRN Reason: Hypoglycemia Sodium Chloride (Normal Saline) 1,000 mls @ 500 mls/hr IV ASDIRECTED HERACLIO Last Admin: 02/04/20 21:55 Dose: 500 mls/hr Documented by: SARAH Labs: Laboratory Tests 02/04/20 Range/Units 21:10 Sodium 131 L (135-145) mmol/L Potassium 5.1 (3.5-5.3) mmol/L Chloride 93 L (100-110) mmol/L Carbon Dioxide 29 (21-32) mmol/L BUN 45 H D (7-18) mg/dL Creatinine 1.4 H (0.70-1.30) mg/dL Est Cr Clr Drug Dosing 57.21 mL/min Estimated GFR (MDRD) 52 L (>60) BUN/Creatinine Ratio 32.1 H (9-20) Glucose 605 H* D (80-116) mg/dL Calcium 9.2 (8.6-10.2) mg/dL Meds: Medications Generic Name Dose Route Start Last Admin Trade Name Freq PRN Reason Stop Dose Admin Dextrose/Water 50 ml 02/04/20 21:48 Dextrose 50% In Water IVPUSH ASDIRECTED PRN Hypoglycemia Glucagon 1 mg 02/04/20 21:48 Glucagen IM ASDIRECTED PRN Hypoglycemia Sodium Chloride 1,000 mls @ 500 mls/hr 02/04/20 22:00 02/04/20 21:55 Normal Saline IV 500 mls/hr ASDIRECTED HERACLIO Administration Discontinued Medications Generic Name Dose Route Start Last Admin Trade Name Freq PRN Reason Stop Dose Admin Insulin Human Regular 10 unit 02/04/20 21:48 Humulin R IV 02/04/20 21:49 ONETIME ONE Departure - Departure Time of Disposition: 23:22 Disposition: Home, Self-Care 01 Condition: Good Clinical Impression: Type 2 diabetes mellitus Qualifiers: Diabetes mellitus jail insulin use: without jail use Diabetes mellitus complication status: with other specified complication Qualified Code(s): E11.69 - Type 2 diabetes mellitus with other specified complication - Discharge Information *PRESCRIPTION DRUG MONITORING PROGRAM REVIEWED*: Not Applicable *COPY OF PRESCRIPTION DRUG MONITORING REPORT IN PATIENT CHUCK: Not Applicable Referrals: Clemente Mark PA [Primary Care Provider] - Forms: ED Department Discharge Sepsis Event Note (ED) - Evaluation Sepsis Screening Result: No Definite Risk - Focused Exam Vital Signs: Vital Signs Temp Pulse Resp BP Pulse Ox 02/04/20 20:48 36.7 C 102 H 22 H 142/70 H 94 L - Problem List & Annotations (1) Type 2 diabetes mellitus SNOMED Code(s): 58494091 Code(s): E11.9 - TYPE 2 DIABETES MELLITUS WITHOUT COMPLICATIONS Status: Acute Current Visit: Yes Annotation/Comment:: Justin was advised to follow dietary requirements, and resume usual diabetic meds. 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 use Diabetes mellitus complication status: with other specified complication Qualified Code(s): E11.69 - Type 2 diabetes mellitus with other specified complication - Problem List Review Problem List Initiated/Reviewed/Updated: Yes - My Orders Last 24 Hours: My Active Orders 02/04/20 21:48 Dextrose 50% in Water 50 ml IVPUSH ASDIRECTED PRN Glucagon,Human Recombinant [GlucaGen] 1 mg IM ASDIRECTED PRN 02/04/20 22:00 Sodium Chloride 0.9% [Normal Saline] 1,000 ml IV ASDIRECTED - Assessment/Plan Last 24 Hours: My Active Orders 02/04/20 21:48 Dextrose 50% in Water 50 ml IVPUSH ASDIRECTED PRN Glucagon,Human Recombinant [GlucaGen] 1 mg IM ASDIRECTED PRN 02/04/20 22:00 Sodium Chloride 0.9% [Normal Saline] 1,000 ml IV ASDIRECTED Plan: Follow up with PCP.
[2020-02-04] MEDS ORDERED: Glucagon,Human Recombinant 1 MG Vial IM PRN (21:48)
[2020-02-04] MEDS ORDERED: Insulin Regular, Human 100 Units/ML 3 ML Vial IV ONE (21:48)
[2020-02-04] MEDS ORDERED: 50% Dextrose in Water 50 ML Syringe IVPUSH PRN (21:48)
[2020-02-04] MEDS ORDERED: Sodium Chloride 0.9% 1,000 ML IV SCH (22:00)
[2020-02-05 00:41] VITALS: BP 130/70; PULSE 80
== END 2020-02-05 00:06 | disposition home or self-care (01) ==
LOC: FB.ED 20:48
DX: E11.69 Type 2 diabetes mellitus with other specified complication (principal); M25.461 Effusion, right knee; I10 Essential (primary) hypertension; E78.00 Pure hypercholesterolemia, unspecified; J44.9 Chronic obstructive pulmonary disease, unspecified; F41.9 Anxiety disorder, unspecified; F32.9 Major depressive disorder, single episode, unspecified; E66.9 Obesity, unspecified; Z68.32 Body mass index [BMI] 32.0-32.9, adult; Z79.899 Other long term (current) drug therapy
CPT/HCPCS: 36415; 80048; 82962; 99282; 99285; J7030

== ENCOUNTER 2020-02-09 05:21 | Emergency (ER) | payer MEDICAID ==
[2020-02-09] MEDS ORDERED: Insulin Lispro 100 Unit/ML 3 ML KwikPen SUBCUT ONE (05:22)
[2020-02-09] MEDS ORDERED: Ondansetron 4 MG Tab.DIS PO PRN (05:26)
[2020-02-09] MEDS ORDERED: 50% Dextrose in Water 50 ML Syringe IVPUSH PRN (05:52)
[2020-02-09] MEDS ORDERED: Insulin Lispro 100 Unit/ML 3 ML KwikPen SUBCUT STA (05:52)
[2020-02-09] MEDS ORDERED: Glucagon,Human Recombinant 1 MG Vial IM PRN (05:52)
--- NOTE | 2020-02-09 06:52 | EDM.PDOC ---
ED HPI GENERAL MEDICAL PROBLEM - General Chief Complaint: Gastrointestinal Problem Stated Complaint: SOB; NAUSEA Time Seen by Provider: 02/09/20 05:30 Source of Information: Reports: Patient History Limitations: Reports: No Limitations - History of Present Illness INITIAL COMMENTS - FREE TEXT/NARRATIVE: Patient presented to the ED because of high blood sugar, insomnia, and dyspnea. He checked his blood sugar this morning and it was 250. He c/o of polydipsia and polyuria. He was seen in the ED 3 days ago with a BS of 600 and was given NS 1 L bolus and humulin 10 U SC. He also c/o dyspnea although his oxygen saturation is 96% on RA. - Related Data Allergies Allergy/AdvReac Type Severity Reaction Status Date / Time No Known Allergies Allergy Verified 02/09/20 05:27 Home Meds: Home Meds Acetaminophen [Mapap] 1,000 mg PO Q6H PRN 05/04/18 [History] Albuterol [Ventolin HFA] 1 - 2 puff IH Q4H PRN 05/04/18 [History] Glimepiride [Amaryl] 4 mg PO DAILY 11/01/18 [History] Albuterol/Ipratropium [DuoNeb 3.0-0.5 MG/3 ML] 3 ml IH QID PRN 01/26/20 [History] Amitriptyline [Elavil] 25 mg PO BEDTIME PRN 01/26/20 [History] Budesonide/Formoterol Fumarate [Symbicort 160-4.5 Mcg Inhaler] 1 inh INH BID 01/26/20 [History] Cyanocobalamin (Vitamin B-12) [B-12] 1,000 mcg PO DAILY 01/26/20 [History] Gabapentin [Neurontin] 1,200 mg PO TID 01/26/20 [History] Liraglutide [Victoza] 1.8 mg SQ DAILY 01/26/20 [History] Losartan [Cozaar] 50 mg PO DAILY 01/26/20 [History] Sodium Chloride [Saline Nasal [place]] 1 spray NASBOTH Q2H PRN 01/26/20 [History] atorvaSTATin [Lipitor] 10 mg PO DAILY 01/26/20 [History] buPROPion [Wellbutrin] 150 mg PO DAILY 01/26/20 [History] metFORMIN HCl [Metformin HCl ER] 1,000 mg PO DAILY 01/26/20 [History] predniSONE 20 mg PO BID #40 tablet 01/29/20 [Rx] Indomethacin [Indocin] 50 mg PO TID 02/04/20 [History] Azithromycin [Zithromax] 250 mg PO DAILY #6 tablet 02/09/20 [Rx] hydrOXYzine pamoate [Vistaril] 25 mg PO Q8H #30 cap 02/09/20 [Rx] Past Medical History HEENT History: Reports: Cataract Cardiovascular History: Reports: High Cholesterol, Hypertension Respiratory History: Reports: Bronchitis, Recurrent, COPD Other Musculoskeletal History: Lt hand had 2 fingers reattached Neurological History: Reports: Headaches, Chronic Psychiatric History: Reports: Anxiety, Depression Other Psychiatric History: past 2-3 months Endocrine/Metabolic History: Reports: Diabetes, Type II, Obesity/BMI 30+ Dermatologic History: Reports: Cellulitis Other Dermatologic History: cellulitis L ankle - Infectious Disease History Infectious Disease History: Reports: None - Past Surgical History Other Musculoskeletal Surgeries/Procedures:: Cellulitis left ankle Social & Family History - Family History Family Medical History: No Pertinent Family History - Caffeine Use Caffeine Use: Reports: None - Living Situation & Occupation Occupation: Unemployed (Secondary to his COPD.) ED ROS GENERAL - Review of Systems Review Of Systems: See Below Constitutional: Reports: No Symptoms HEENT: Reports: No Symptoms Respiratory: Reports: No Symptoms Cardiovascular: Reports: No Symptoms Endocrine: Reports: No Symptoms GI/Abdominal: Reports: No Symptoms : Reports: No Symptoms Musculoskeletal: Reports: No Symptoms Skin: Reports: No Symptoms Neurological: Reports: No Symptoms Psychiatric: Reports: Anxiety ED EXAM, GENERAL - Physical Exam Exam: See Below Exam Limited By: No Limitations General Appearance: Alert, No Apparent Distress Ears: Normal External Exam, Normal Canal Nose: Normal Inspection, Normal Mucosa, No Blood Throat/Mouth: Normal Inspection, Normal Lips, Normal Teeth Head: Atraumatic, Normocephalic Neck: Normal Inspection, Supple, Non-Tender, Full Range of Motion Respiratory/Chest: No Respiratory Distress, Lungs Clear, Normal Breath Sounds Cardiovascular: Normal Peripheral Pulses, Regular Rate, Rhythm, No Edema, No Gallop GI/Abdominal: Normal Bowel Sounds, Soft, Non-Tender, No Organomegaly Back Exam: Normal Inspection, Full Range of Motion Extremities: Normal Inspection, Normal Range of Motion, Non-Tender Course - Vital Signs Text/Narrative:: Labs/CXR result was discussed with patient He refused to have EKG Humalog 10 U SC Last Recorded V/S: Last Vital Signs Temp Pulse 105 H 02/09/20 05:25 Resp 17 02/09/20 05:25 BP 177/78 H 02/09/20 05:25 Pulse Ox 95 02/09/20 05:25 - Orders/Labs/Meds Orders: Active Orders 24 hr Category Date Time Status EKG Documentation Completion [RC] ASDIRECTED Care 02/09/20 05:26 Active Chest 1V Frontal [CR] Stat Exams 02/09/20 05:24 Ordered Dextrose 50% in Water Med 02/09/20 05:52 Active 50 ml IVPUSH ASDIRECTED PRN Glucagon,Human Recombinant [GlucaGen] Med 02/09/20 05:52 Active 1 mg IM ASDIRECTED PRN Ondansetron [Zofran ODT] Med 02/09/20 05:26 Active 4 mg PO ONETIME PRN EKG 12 Lead [EK] Routine Ther 02/09/20 05:24 Ordered Medication Orders Dextrose/Water (Dextrose 50% In Water) 50 ml IVPUSH ASDIRECTED PRN PRN Reason: Hypoglycemia Glucagon (Glucagen) 1 mg IM ASDIRECTED PRN PRN Reason: Hypoglycemia Ondansetron HCl (Zofran Odt) 4 mg PO ONETIME PRN PRN Reason: Nausea Last Admin: 02/09/20 05:29 Dose: 4 mg Documented by: NANETTE Labs: Laboratory Tests 02/09/20 02/09/20 02/09/20 Range/Units 05:35 05:35 05:35 WBC 13.0 H (3.2-10.1) x10-3/uL RBC 3.26 L (3.90-5.90) x10(6)uL Hgb 11.1 L (12.9-17.7) g/dL Hct 33.6 L (38.3-50.1) % MCV 103.1 H (80.8-98.7) fL MCH 34.1 H (27.0-33.3) pg MCHC 33.1 (28.7-35.3) g/dL RDW 14.6 (12.4-15.0) % Plt Count 266 (117-477) x10(3)uL MPV 9.0 (6.7-11.0) fL Neut % (Auto) 71.0 (40.3-71.8) % Lymph % (Auto) 17.9 (15.8-45.3) % [place] % (Auto) 7.4 (5.5-15.2) % Eos % (Auto) 2.8 (0.1-6.8) % Baso % (Auto) 0.9 (0.3-3.8) % Neut # (Auto) 9.2 H (1.7-6.9) x10-3/uL Lymph # (Auto) 2.3 (0.5-4.5) x10-3/uL [place] # (Auto) 1.0 (0.0-1.2) x10-3/uL Eos # (Auto) 0.4 (0.0-0.6) x10-3/uL Baso # (Auto) 0.1 (0.0-0.3) x10-3/uL PT 9.8 (9.0-11.1) sec INR 0.90 L (1.00-1.24) APTT 27.1 (24.4-33.2) SECONDS Sodium 138 (135-145) mmol/L Potassium 4.3 (3.5-5.3) mmol/L Chloride 100 D (100-110) mmol/L Carbon Dioxide 30 (21-32) mmol/L BUN 23 H D (7-18) mg/dL Creatinine 0.9 (0.70-1.30) mg/dL Est Cr Clr Drug Dosing TNP Estimated GFR (MDRD) > 60 (>60) BUN/Creatinine Ratio 25.6 H (9-20) Glucose 271 H D (80-116) mg/dL Calcium 9.2 (8.6-10.2) mg/dL Total Bilirubin 0.3 (0.1-1.3) mg/dL AST 31 H D (5-25) IU/L ALT 62 H D (12-36) U/L Alkaline Phosphatase 151 H (56-112) IU/L Troponin I (4.0-60.3) pg/mL NT-Pro-B Natriuret Pep (<=125) pg/mL Total Protein 7.4 (6.0-8.0) g/dL Albumin 2.9 L (3.2-4.6) g/dL Globulin 4.5 g/dL Albumin/Globulin Ratio 0.6 02/09/20 02/09/20 Range/Units 05:35 05:35 WBC (3.2-10.1) x10-3/uL RBC (3.90-5.90) x10(6)uL Hgb (12.9-17.7) g/dL Hct (38.3-50.1) % MCV (80.8-98.7) fL MCH (27.0-33.3) pg MCHC (28.7-35.3) g/dL RDW (12.4-15.0) % Plt Count (117-477) x10(3)uL MPV (6.7-11.0) fL Neut % (Auto) (40.3-71.8) % Lymph % (Auto) (15.8-45.3) % [place] % (Auto) (5.5-15.2) % Eos % (Auto) (0.1-6.8) % Baso % (Auto) (0.3-3.8) % Neut # (Auto) (1.7-6.9) x10-3/uL Lymph # (Auto) (0.5-4.5) x10-3/uL [place] # (Auto) (0.0-1.2) x10-3/uL Eos # (Auto) (0.0-0.6) x10-3/uL Baso # (Auto) (0.0-0.3) x10-3/uL PT (9.0-11.1) sec INR (1.00-1.24) APTT (24.4-33.2) SECONDS Sodium (135-145) mmol/L Potassium (3.5-5.3) mmol/L Chloride (100-110) mmol/L Carbon Dioxide (21-32) mmol/L BUN (7-18) mg/dL Creatinine (0.70-1.30) mg/dL Est Cr Clr Drug Dosing Estimated GFR (MDRD) (>60) BUN/Creatinine Ratio (9-20) Glucose (80-116) mg/dL Calcium (8.6-10.2) mg/dL Total Bilirubin (0.1-1.3) mg/dL AST (5-25) IU/L ALT (12-36) U/L Alkaline Phosphatase (56-112) IU/L Troponin I 14.4 (4.0-60.3) pg/mL NT-Pro-B Natriuret Pep 107 (<=125) pg/mL Total Protein (6.0-8.0) g/dL Albumin (3.2-4.6) g/dL Globulin g/dL Albumin/Globulin Ratio Meds: Medications Generic Name Dose Route Start Last Admin Trade Name Freq PRN Reason Stop Dose Admin Dextrose/Water 50 ml 02/09/20 05:52 Dextrose 50% In Water IVPUSH ASDIRECTED PRN Hypoglycemia Glucagon 1 mg 02/09/20 05:52 Glucagen IM ASDIRECTED PRN Hypoglycemia Ondansetron HCl 4 mg 02/09/20 05:26 02/09/20 05:29 Zofran Odt PO 4 mg ONETIME PRN Administration Nausea Discontinued Medications Generic Name Dose Route Start Last Admin Trade Name Freq PRN Reason Stop Dose Admin Insulin Human Lispro 10 unit 02/09/20 05:52 02/09/20 06:06 Humalog SUBCUT 02/09/20 05:53 10 units NOW STA Administration Departure - Departure Time of Disposition: 07:15 Disposition: Home, Self-Care 01 Condition: Good Clinical Impression: Hyperglycemia, Acute bronchitis, Insomnia - Discharge Information Prescriptions: hydrOXYzine pamoate [Vistaril] 25 mg PO Q8H #30 cap Azithromycin [Zithromax] 250 mg PO DAILY #6 tablet Instructions: Hyperglycemia, [id number], Insomnia, Acute Bronchitis, Adult Referrals: Clemente Mark PA [Primary Care Provider] - Forms: ED Department Discharge Additional Instructions: Please read discharge instructions on hyperglycemia,acute bronchitis, and insomnia Z-arelis as directed for your bronchitis Hydroxyzine 25 mg, take 1-2 tablets every 8 hours as needed for anxiety and sleep Follow up with your doctor for adjustment of your medicines for diabetes Sepsis Event Note (ED) - Evaluation Sepsis Screening Result: No Definite Risk - Focused Exam Vital Signs: Vital Signs Pulse Resp BP Pulse Ox 02/09/20 05:25 105 H 17 177/78 H 95 - My Orders Last 24 Hours: My Active Orders 02/09/20 05:24 Chest 1V Frontal [CR] Stat EKG 12 Lead [EK] Routine 02/09/20 05:26 EKG Documentation Completion [RC] ASDIRECTED Ondansetron [Zofran ODT] 4 mg PO ONETIME PRN 02/09/20 05:52 Dextrose 50% in Water 50 ml IVPUSH ASDIRECTED PRN Glucagon,Human Recombinant [GlucaGen] 1 mg IM ASDIRECTED PRN - Assessment/Plan Last 24 Hours: My Active Orders 02/09/20 05:24 Chest 1V Frontal [CR] Stat EKG 12 Lead [EK] Routine 02/09/20 05:26 EKG Documentation Completion [RC] ASDIRECTED Ondansetron [Zofran ODT] 4 mg PO ONETIME PRN 02/09/20 05:52 Dextrose 50% in Water 50 ml IVPUSH ASDIRECTED PRN Glucagon,Human Recombinant [GlucaGen] 1 mg IM ASDIRECTED PRN
[2020-02-09 08:24] VITALS: BP 121/67; PULSE 90
--- NOTE | 2020-02-09 13:19 | CR ---
INDICATION: Dyspnea. CHEST ONE VIEW: Two portable AP upright views of the chest were obtained 02/09/20 and compared with 11/01/18. The heart, mediastinum and bony thorax appeared grossly normal. Flattened diaphragm leaves and hyperaeration suggest COPD also noted on the previous study with perhaps slightly increased flattening of the right hemidiaphragm leaf. Nipple shadow was noted at the left lung base. A definite active infiltrate or effusion was not identified with pulmonary markings overall similar to the previous study. However, there is bronchial wall cuffing of [id number] degree in the mid to lower lung moon - more prominent in the lower lung moon. IMPRESSION: 1. COPD. 2. Bronchial wall cuffing. MTDD
== END 2020-02-09 08:20 | disposition home or self-care (01) ==
LOC: FB.ED 05:21
DX: E11.65 Type 2 diabetes mellitus with hyperglycemia (principal); J20.9 Acute bronchitis, unspecified; G47.00 Insomnia, unspecified; E66.9 Obesity, unspecified; E78.00 Pure hypercholesterolemia, unspecified; I10 Essential (primary) hypertension; J44.9 Chronic obstructive pulmonary disease, unspecified; F41.9 Anxiety disorder, unspecified; F32.9 Major depressive disorder, single episode, unspecified; Z79.84 Long term (current) use of oral hypoglycemic drugs; Z79.899 Other long term (current) drug therapy; Z68.32 Body mass index [BMI] 32.0-32.9, adult
CPT/HCPCS: 36415; 71045; 80053; 82962; 83880; 84484; 85025; 85610; 85730; 99285; A9270; J1815

== ENCOUNTER 2020-06-09 15:16 | Inpatient (IN) | payer MEDICAID ==
--- NOTE | 2020-06-09 15:38 | EDM.PDOC ---
ED HPI GENERAL MEDICAL PROBLEM - General Stated Complaint: ELBOW PAIN Time Seen by Provider: 06/09/20 15:18 Source of Information: Reports: Patient, Provider (Dr Buckley) History Limitations: Reports: Physical Impairment (developmental delay) - History of Present Illness INITIAL COMMENTS - FREE TEXT/NARRATIVE: Justin was seen by Dr Lugo last week for swollen left elbow, diagnosed with bursitis, had 20 ml of serosanguineous fluid drained, started on Doxycycline. Had follow up with Dr Buckley on Friday, had another 20 ml or serosanguineous fluid drained, cultures came back negative. He came back to see Dr Buckley today for worsening pain, redness. Denies any fever, chills, sore throat, cough, shortness of breath, cough, chest pain. No nausea, vomiting, constipation or diarrhea. No dysuria, frequency or hematuria. Dr Buckley & Dr Lugo felt the swelling was better but elbow more tender, increased warmth, and now has area of redness in antecubital fossa. Dr Buckley spoke with [facility], they advised IV antibiotics so sent to ER for further evaluation. Left Elbow Pain Score (Numeric/FACES): 10 - Related Data Allergies Allergy/AdvReac Type Severity Reaction Status Date / Time No Known Allergies Allergy Verified 06/09/20 15:34 Home Meds: Home Meds Acetaminophen [Mapap] 1,000 mg PO Q6H PRN 05/04/18 [History] Albuterol [Ventolin HFA] 1 - 2 puff IH Q4H PRN 05/04/18 [History] Glimepiride [Amaryl] 4 mg PO DAILY 11/01/18 [History] Albuterol/Ipratropium [DuoNeb 3.0-0.5 MG/3 ML] 3 ml IH QID PRN 01/26/20 [History] Amitriptyline [Elavil] 25 mg PO BEDTIME PRN 01/26/20 [History] Budesonide/Formoterol Fumarate [Symbicort 160-4.5 Mcg Inhaler] 1 inh INH BID 01/26/20 [History] Cyanocobalamin (Vitamin B-12) [B-12] 1,000 mcg PO DAILY 01/26/20 [History] Gabapentin [Neurontin] 1,200 mg PO TID 01/26/20 [History] Liraglutide [Victoza] 1.8 mg SQ DAILY 01/26/20 [History] Losartan [Cozaar] 50 mg PO DAILY 01/26/20 [History] Sodium Chloride [Saline Nasal [place]] 1 spray NASBOTH Q2H PRN 01/26/20 [History] atorvaSTATin [Lipitor] 10 mg PO DAILY 01/26/20 [History] buPROPion [Wellbutrin] 150 mg PO DAILY 01/26/20 [History] metFORMIN HCl [Metformin HCl ER] 1,000 mg PO DAILY 01/26/20 [History] predniSONE 20 mg PO BID #40 tablet 01/29/20 [Rx] Indomethacin [Indocin] 50 mg PO TID 02/04/20 [History] Azithromycin [Zithromax] 250 mg PO DAILY #6 tablet 02/09/20 [Rx] hydrOXYzine pamoate [Vistaril] 25 mg PO Q8H #30 cap 02/09/20 [Rx] Past Medical History HEENT History: Reports: Cataract Cardiovascular History: Reports: High Cholesterol, Hypertension Respiratory History: Reports: Bronchitis, Recurrent, COPD Other Musculoskeletal History: Lt hand had 2 fingers reattached Neurological History: Reports: Headaches, Chronic Psychiatric History: Reports: Anxiety, Depression Other Psychiatric History: past 2-3 months Endocrine/Metabolic History: Reports: Diabetes, Type II, Obesity/BMI 30+ Dermatologic History: Reports: Cellulitis Other Dermatologic History: cellulitis L ankle - Infectious Disease History Infectious Disease History: Reports: None - Past Surgical History Other Musculoskeletal Surgeries/Procedures:: Cellulitis left ankle Social & Family History - Family History Family Medical History: No Pertinent Family History - Caffeine Use Caffeine Use: Reports: None - Living Situation & Occupation Occupation: Unemployed (Secondary to his COPD.) Review of Systems - Review of Systems Review Of Systems: See Below Constitutional: Reports: No Symptoms Eyes: Reports: No Symptoms Ears: Reports: No Symptoms Nose: Reports: No Symptoms Mouth/Throat: Reports: No Symptoms Respiratory: Reports: Wheezing. Denies: Shortness of Breath, Cough Cardiovascular: Reports: No Symptoms GI/Abdominal: Reports: No Symptoms Genitourinary: Reports: No Symptoms Musculoskeletal: Reports: Arm Pain (left), Joint Pain (left) Skin: Reports: Erythema Neurological: Reports: No Symptoms Psychiatric: Reports: No Symptoms ED EXAM, GENERAL - Physical Exam Exam: See Below Exam Limited By: Other (Developmental delay) General Appearance: Alert, WD/WN, No Apparent Distress Eye Exam: Bilateral Eye: EOMI, PERRL Ears: Normal External Exam, Normal TMs Nose: Normal Inspection, Normal Mucosa Throat/Mouth: Normal Inspection, Normal Lips, Normal Gums, Other Head: Atraumatic, Normocephalic Neck: Normal Inspection, Supple. No: Lymphadenopathy (R), Lymphadenopathy (L) Respiratory/Chest: No Respiratory Distress, Normal Breath Sounds, Decreased Breath Sounds (poor air entry). No: Crackles, Wheezing Cardiovascular: Normal Peripheral Pulses, Regular Rate, Rhythm, No Edema Peripheral Pulses: 2+: Radial (L), Radial (R), Posterior Tibial (L), Posterior Tibial (R), Dorsalis Pedis (L), Dorsalis Pedis (R) GI/Abdominal: Normal Bowel Sounds, Soft, Non-Tender, No Distention (Male) Exam: Deferred Rectal (Males) Exam: Deferred Extremities: No Pedal Edema, Joint Swelling (left elbow from olecranon process down forearm, TTP, fluctuant), Limited Range of Motion (90 degrees flexion), Redness (olecranon to proximal dorsal forearm, 3 cm x 4 cm antecubital fossa) Neurological: Alert, Oriented, CN II-XII Intact Skin Exam: Warm, Dry, Intact, Increased Warmth (left elbow) Lymphatic: No Adenopathy Course - Vital Signs Last Recorded V/S: Last Vital Signs Temp 98.2 F 06/09/20 15:16 Pulse 90 06/09/20 15:16 Resp 18 06/09/20 15:16 BP 130/95 H 06/09/20 15:16 Pulse Ox 98 06/09/20 15:16 - Orders/Labs/Meds Orders: Active Orders 24 hr Category Date Time Status Patient Status Manage Transfer [TRANSFER] Routine ADT 06/09/20 16:11 Ordered Elbow Min 3V Lt [CR] Stat Exams 06/09/20 15:31 Taken CULTURE BLOOD [BC] Urgent Lab 06/09/20 15:39 Received CULTURE BLOOD [BC] Urgent Lab 06/09/20 15:44 Received Pharmacy to Dose - Vancomycin Med 06/09/20 16:15 Pending 1 dose .XX ASDIRECTED Sodium Chloride 0.9% [Saline Flush] Med 06/09/20 15:32 Active 10 ml FLUSH ASDIRECTED PRN VANCOmycin 1.5 GM/300 ML 300 ml Med 06/09/20 17:30 Active IV Q12H ceFAZolin [Ancef 2 GM/50 ML] 50 ml Med 06/09/20 17:00 Active IV Q8H Blood Culture x2 Reflex Set [OM.PC] Urgent Oth 06/09/20 15:30 Ordered Saline Lock Insert [OM.PC] Routine Oth 06/09/20 15:32 Ordered Medication Orders Cefazolin Sodium/Dextrose (Ancef 2 Gm/50 Ml) 50 mls @ 100 mls/hr IV Q8H [facility]ACLIO Vancomycin HCl (Vancomycin 1.5 Gm/300 Ml) 300 mls @ 200 mls/hr IV Q12H [facility]ACLIO Sodium Chloride (Sodium Chloride 0.9% 10 Ml Syringe) 10 ml FLUSH ASDIRECTED PRN PRN Reason: Keep Vein Open Last Admin: 06/09/20 15:40 Dose: 10 ml Documented by: CAITLIN Vancomycin HCl (Pharmacy To Dose - Vancomycin) 1 dose .XX ASDIRECTED [facility] Labs: Laboratory Tests 06/09/20 06/09/20 06/09/20 Range/Units 15:39 15:39 15:44 WBC 10.5 H (3.2-10.1) x10-3/uL RBC 4.47 (3.90-5.90) x10(6)uL Hgb 13.4 (12.9-17.7) g/dL Hct 41.3 (38.3-50.1) % MCV 92.4 (80.8-98.7) fL MCH 29.9 (27.0-33.3) pg MCHC 32.4 (28.7-35.3) g/dL RDW 15.5 H (12.4-15.0) % Plt Count 213 (117-477) x10(3)uL MPV 9.3 (6.7-11.0) fL Neut % (Auto) 67.1 (40.3-71.8) % Lymph % (Auto) 19.6 (15.8-45.3) % [place] % (Auto) 8.6 (5.5-15.2) % Eos % (Auto) 3.6 (0.1-6.8) % Baso % (Auto) 1.1 (0.3-3.8) % Neut # (Auto) 7.0 H (1.7-6.9) x10-3/uL Lymph # (Auto) 2.1 (0.5-4.5) x10-3/uL [place] # (Auto) 0.9 (0.0-1.2) x10-3/uL Eos # (Auto) 0.4 (0.0-0.6) x10-3/uL Baso # (Auto) 0.1 (0.0-0.3) x10-3/uL Sodium 138 (135-145) mmol/L Potassium 4.2 (3.5-5.3) mmol/L Chloride 102 (100-110) mmol/L Carbon Dioxide 27 (21-32) mmol/L BUN 20 H (7-18) mg/dL Creatinine 0.9 (0.70-1.30) mg/dL Est Cr Clr Drug Dosing 91.80 mL/min Estimated GFR (MDRD) > 60 (>60) BUN/Creatinine Ratio 22.2 H (9-20) Glucose 166 H D (80-116) mg/dL Lactic Acid (0.4-2.0) mmol/L Calcium 9.4 (8.6-10.2) mg/dL Total Bilirubin 0.3 (0.1-1.3) mg/dL AST 29 H (5-25) IU/L ALT 30 D (12-36) U/L Alkaline Phosphatase 86 (56-112) IU/L C-Reactive Protein 5.3 H* (0.5-0.9) mg/dL Total Protein 8.5 H (6.0-8.0) g/dL Albumin 3.7 (3.2-4.6) g/dL Globulin 4.8 g/dL Albumin/Globulin Ratio 0.8 // Range/Units 15:44 WBC (3.2-10.1) x10-3/uL RBC (3.90-5.90) x10(6)uL Hgb (12.9-17.7) g/dL Hct (38.3-50.1) % MCV (80.8-98.7) fL MCH (27.0-33.3) pg MCHC (28.7-35.3) g/dL RDW (12.4-15.0) % Plt Count (117-477) x10(3)uL MPV (6.7-11.0) fL Neut % (Auto) (40.3-71.8) % Lymph % (Auto) (15.8-45.3) % [place] % (Auto) (5.5-15.2) % Eos % (Auto) (0.1-6.8) % Baso % (Auto) (0.3-3.8) % Neut # (Auto) (1.7-6.9) x10-3/uL Lymph # (Auto) (0.5-4.5) x10-3/uL [place] # (Auto) (0.0-1.2) x10-3/uL Eos # (Auto) (0.0-0.6) x10-3/uL Baso # (Auto) (0.0-0.3) x10-3/uL Sodium (135-145) mmol/L Potassium (3.5-5.3) mmol/L Chloride (100-110) mmol/L Carbon Dioxide (21-32) mmol/L BUN (7-18) mg/dL Creatinine (0.70-1.30) mg/dL Est Cr Clr Drug Dosing mL/min Estimated GFR (MDRD) (>60) BUN/Creatinine Ratio (9-20) Glucose (80-116) mg/dL Lactic Acid 1.2 (0.4-2.0) mmol/L Calcium (8.6-10.2) mg/dL Total Bilirubin (0.1-1.3) mg/dL AST (5-25) IU/L ALT (12-36) U/L Alkaline Phosphatase (56-112) IU/L C-Reactive Protein (0.5-0.9) mg/dL Total Protein (6.0-8.0) g/dL Albumin (3.2-4.6) g/dL Globulin g/dL Albumin/Globulin Ratio Meds: Medications Generic Name Dose Route Start Last Admin Trade Name Freq PRN Reason Stop Dose Admin Cefazolin Sodium/Dextrose 50 mls @ 100 mls/hr 06/09/20 17:00 Ancef 2 Gm/50 Ml IV Q8H HERACLIO Vancomycin HCl 300 mls @ 200 mls/hr 06/09/20 17:30 Vancomycin 1.5 Gm/300 Ml IV Q12H [facility] Sodium Chloride 10 ml 06/09/20 15:32 06/09/20 15:40 Sodium Chloride 0.9% 10 Ml Syringe FLUSH 10 ml ASDIRECTED PRN Administration Keep Vein Open Vancomycin HCl 1 dose 06/09/20 16:15 Pharmacy To Dose - Vancomycin .XX ASDIRECTED [facility] Departure - Departure Time of Disposition: 16:12 Disposition: Admitted As Inpatient 65 Clinical Impression: Bursitis of left elbow, Cellulitis COPD (chronic obstructive pulmonary disease) Qualifiers: COPD type: unspecified COPD Qualified Code(s): J44.9 - Chronic obstructive pulmonary disease, unspecified Type 2 diabetes mellitus 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: without senior living use Diabetes mellitus complication status: with other specified complication Qualified Code(s): E11.69 - Type 2 diabetes mellitus with other specified complication - Discharge Information *PRESCRIPTION DRUG MONITORING PROGRAM REVIEWED*: Not Applicable *COPY OF PRESCRIPTION DRUG MONITORING REPORT IN PATIENT CHUCK: Not Applicable Sepsis Event Note (ED) - Evaluation Sepsis Screening Result: No Definite Risk - Focused Exam Vital Signs: Vital Signs Temp Pulse Resp BP Pulse Ox 06/09/20 15:16 98.2 F 90 18 130/95 H 98 - My Orders Last 24 Hours: My Active Orders 06/09/20 15:30 Blood Culture x2 Reflex Set [OM.PC] Urgent 06/09/20 15:31 Elbow Min 3V Lt [CR] Stat 06/09/20 15:32 Sodium Chloride 0.9% [Saline Flush] 10 ml FLUSH ASDIRECTED PRN Saline Lock Insert [OM.PC] Routine 06/09/20 15:39 CULTURE BLOOD [BC] Urgent 06/09/20 15:44 CULTURE BLOOD [BC] Urgent 06/09/20 16:11 Patient Status Manage Transfer [TRANSFER] Routine 06/09/20 16:15 Pharmacy to Dose - Vancomycin 1 dose .XX ASDIRECTED 06/09/20 17:00 ceFAZolin [Ancef 2 GM/50 ML] 50 ml IV Q8H 06/09/20 17:30 VANCOmycin 1.5 GM/300 ML 300 ml IV Q12H - Assessment/Plan Last 24 Hours: My Active Orders 06/09/20 15:30 Blood Culture x2 Reflex Set [OM.PC] Urgent 06/09/20 15:31 Elbow Min 3V Lt [CR] Stat 06/09/20 15:32 Sodium Chloride 0.9% [Saline Flush] 10 ml FLUSH ASDIRECTED PRN Saline Lock Insert [OM.PC] Routine 06/09/20 15:39 CULTURE BLOOD [BC] Urgent 06/09/20 15:44 CULTURE BLOOD [BC] Urgent 06/09/20 16:11 Patient Status Manage Transfer [TRANSFER] Routine 06/09/20 16:15 Pharmacy to Dose - Vancomycin 1 dose .XX ASDIRECTED 06/09/20 17:00 ceFAZolin [Ancef 2 GM/50 ML] 50 ml IV Q8H 06/09/20 17:30 VANCOmycin 1.5 GM/300 ML 300 ml IV Q12H
[2020-06-09] MEDS: Sodium Chloride 0.9% 10 ML Syringe FLUSH PRN (15:40)
[2020-06-09] MEDS ORDERED: ceFAZolin 1 GM Vial IVPUSH SCH (16:15)
[2020-06-09] MEDS ORDERED: Ondansetron 4 MG Tab.DIS PO PRN (16:19)
--- NOTE | 2020-06-09 16:50 | PCM.HP.2 ---
H&P History of Present Illness - General Date of Service: 06/09/20 Admit Problem/Dx: Admission Diagnosis/Problem Admission Diagnosis/Problem Bursitis of elbow Source of Information: Patient, Provider History Limitations: Reports: Physical Impairment (developmental delay) - History of Present Illness Initial Comments - Free Text/Narative: Justin was seen by Dr Lugo last week for swollen left elbow, diagnosed with bursitis, had 20 ml of serosanguineous fluid drained, started on Doxycycline. Had follow up with Dr Buckley on Friday, had another 20 ml or serosanguineous flu id drained, cultures came back negative. He came back to see Dr Buckley today for worsening pain, redness. Denies any fever, chills, sore throat, cough, shortness of breath, cough, chest pain. No nausea, vomiting, constipation or diarrhea. No dysuria, frequency or hematuria. Dr Buckley & Dr Lugo felt the swelling was better but elbow more tender, increased warmth, and now has area of redness in antecubital fossa. Dr Buckley spoke with [facility], they advised IV antibiotics so sent to ER for further evaluation. In ER: WBC 10.5, CRP 5.3, Lactic acid and blood cultures pending. Soft tissue swelling on x-ray but no effusion around joint, official report pending. Started Ancef 2 gram & Vancomycin per pharmacy, vancomycin trough tomorrow. Left Elbow Pain Score (Numeric/FACES): 10 - Related Data Allergies/Adverse Reactions: Allergies Allergy/AdvReac Type Severity Reaction Status Date / Time No Known Allergies Allergy Verified 06/09/20 15:34 Home Medications: Home Meds Acetaminophen [Mapap] 1,000 mg PO Q8H PRN 05/04/18 [History] Albuterol [Ventolin HFA] 1 - 2 puff IH Q4H PRN 05/04/18 [History] Budesonide/Formoterol Fumarate [Symbicort 160-4.5 Mcg Inhaler] 2 inh INH BID 01/26/20 [History] Cyanocobalamin (Vitamin B-12) [B-12] 1,000 mcg PO DAILY 01/26/20 [History] Gabapentin [Neurontin] 1,200 mg PO TID 01/26/20 [History] buPROPion [Wellbutrin] 150 mg PO DAILY 01/26/20 [History] Albuterol [Proventil Neb Soln] 3 ml IH Q4H PRN 06/09/20 [History] Allopurinol [Zyloprim] 100 mg PO DAILY 06/09/20 [History] Amitriptyline [Elavil] 50 mg PO BEDTIME 06/09/20 [History] Azelastine [Astelin Nasal Soln] 2 spray NASBOTH BID PRN 06/09/20 [History] Canagliflozin [Invokana] 100 mg PO ACBREAKFAST 06/09/20 [History] Doxycycline [Vibramycin] 100 mg PO BID 06/09/20 [History] Erythromycin Base [Erythromycin 0.5% Ophth Oint] 1 applic EYEBOTH BEDTIME 06/09/20 [History] Glimepiride 6 mg PO DAILY@1200 06/09/20 [History] Liraglutide [Victoza] 1.8 mg SUBCUT BEDTIME 06/09/20 [History] Losartan [Cozaar] 25 mg PO DAILY 06/09/20 [History] Magnesium Oxide 400 mg PO DAILY@1200 06/09/20 [History] Meloxicam 15 mg PO DAILY 06/09/20 [History] Montelukast [Singulair] 10 mg PO BEDTIME 06/09/20 [History] NIFEdipine [Nifedipine ER] 60 mg PO DAILY@1200 06/09/20 [History] Roflumilast [Daliresp] 500 mcg PO DAILY 06/09/20 [History] atorvaSTATin [Lipitor] 10 mg PO DAILY@1200 06/09/20 [History] buPROPion [Wellbutrin] 75 mg PO WITHDINNER 06/09/20 [History] metFORMIN HCl [Metformin ER Gastric] 1,000 mg PO WITHBREAKFAST 06/09/20 [History] rOPINIRole [Requip] 0.25 mg PO BEDTIME 06/09/20 [History] Past Medical History HEENT History: Reports: Cataract Cardiovascular History: Reports: High Cholesterol, Hypertension Respiratory History: Reports: Bronchitis, Recurrent, COPD Other Musculoskeletal History: Lt hand had 2 fingers reattached Neurological History: Reports: Headaches, Chronic Psychiatric History: Reports: Anxiety, Depression Other Psychiatric History: past 2-3 months Endocrine/Metabolic History: Reports: Diabetes, Type II, Obesity/BMI 30+ Dermatologic History: Reports: Cellulitis Other Dermatologic History: cellulitis L ankle - Infectious Disease History Infectious Disease History: Reports: None - Past Surgical History Other Musculoskeletal Surgeries/Procedures:: Cellulitis left ankle Social & Family History - Family History Family Medical History: No Pertinent Family History - Tobacco Use Tobacco Use Status *Q: Former Tobacco User Used Tobacco, but Quit: Yes Month/Year Tobacco Last Used: 2019 - Caffeine Use Caffeine Use: Reports: None - Recreational Drug Use Recreational Drug Use: No - Living Situation & Occupation Occupation: Unemployed (Secondary to his COPD.) H&P Review of Systems - Review of Systems: Review Of Systems: See Below General: Reports: No Symptoms HEENT: Reports: No Symptoms Pulmonary: Reports: Wheezing. Denies: Shortness of Breath, Cough Cardiovascular: Reports: No Symptoms Gastrointestinal: Reports: No Symptoms Genitourinary: Reports: No Symptoms Musculoskeletal: Reports: Joint Pain, Joint Swelling Skin: Reports: Erythema Psychiatric: Reports: No Symptoms Neurological: Reports: No Symptoms Hematologic/Lymphatic: Reports: No Symptoms Immunologic: Reports: No Symptoms Exam - Exam Exam: See Below - Vital Signs Vital Signs: Last Vital Signs Temp 98.2 F 06/09/20 15:16 Pulse 90 06/09/20 15:16 Resp 18 06/09/20 15:16 BP 130/95 H 06/09/20 15:16 Pulse Ox 98 06/09/20 15:16 Weight: 239 lb - Exam General: Alert, Oriented, Cooperative HEENT: PERRLA, Conjunctiva Clear, EOMI, Hearing Intact, Mucosa Moist & [place], Normal Nasal Septum Neck: Supple, Trachea Midline. No: Lymphadenopathy Lungs: Clear to Auscultation (poor air entry), Normal Respiratory Effort, Decreased Breath Sounds. No: Wheezing Cardiovascular: Regular Rate, Regular Rhythm GI/Abdominal Exam: Normal Bowel Sounds, Soft, Non-Tender, No Distention (Male) Exam: Deferred Rectal (Males) Exam: Deferred Extremities: Joint Swelling (left elbow), Increased Warmth (left elbow, TTP over olecranon, proximal forearm, antecubital fossa), Redness (3 cm x 4 cm antecubital fossa, olecranon process to proximal dorsal forearm) Peripheral Pulses: 2+: Radial (L), Radial (R), Posterior Tibial (L), Posterior Tibial (R), Dorsalis Pedis (L), Dorsalis Pedis (R) Skin: Warm, Dry, Intact, Other (3 cm x 4 cm antecubital fossa, olecranon process to proximal dorsal forearm) Neurological: Cranial Nerves Intact Neuro Extensive - Mental Status: Alert, Oriented x3 - Patient Data Lab Results Last 24 hrs: Laboratory Results - last 24 hr 06/09/20 06/09/20 06/09/20 Range/Units 15:39 15:39 15:44 WBC 10.5 H (3.2-10.1) x10-3/uL RBC 4.47 (3.90-5.90) x10(6)uL Hgb 13.4 (12.9-17.7) g/dL Hct 41.3 (38.3-50.1) % MCV 92.4 (80.8-98.7) fL MCH 29.9 (27.0-33.3) pg MCHC 32.4 (28.7-35.3) g/dL RDW 15.5 H (12.4-15.0) % Plt Count 213 (117-477) x10(3)uL MPV 9.3 (6.7-11.0) fL Neut % (Auto) 67.1 (40.3-71.8) % Lymph % (Auto) 19.6 (15.8-45.3) % Fleming % (Auto) 8.6 (5.5-15.2) % Eos % (Auto) 3.6 (0.1-6.8) % Baso % (Auto) 1.1 (0.3-3.8) % Neut # (Auto) 7.0 H (1.7-6.9) x10-3/uL Lymph # (Auto) 2.1 (0.5-4.5) x10-3/uL Fleming # (Auto) 0.9 (0.0-1.2) x10-3/uL Eos # (Auto) 0.4 (0.0-0.6) x10-3/uL Baso # (Auto) 0.1 (0.0-0.3) x10-3/uL Sodium 138 (135-145) mmol/L Potassium 4.2 (3.5-5.3) mmol/L Chloride 102 (100-110) mmol/L Carbon Dioxide 27 (21-32) mmol/L BUN 20 H (7-18) mg/dL Creatinine 0.9 (0.70-1.30) mg/dL Est Cr Clr Drug Dosing 91.80 mL/min Estimated GFR (MDRD) > 60 (>60) BUN/Creatinine Ratio 22.2 H (9-20) Glucose 166 H D (80-116) mg/dL Lactic Acid (0.4-2.0) mmol/L Calcium 9.4 (8.6-10.2) mg/dL Total Bilirubin 0.3 (0.1-1.3) mg/dL AST 29 H (5-25) IU/L ALT 30 D (12-36) U/L Alkaline Phosphatase 86 (56-112) IU/L C-Reactive Protein 5.3 H* (0.5-0.9) mg/dL Total Protein 8.5 H (6.0-8.0) g/dL Albumin 3.7 (3.2-4.6) g/dL Globulin 4.8 g/dL Albumin/Globulin Ratio 0.8 // Range/Units 15:44 WBC (3.2-10.1) x10-3/uL RBC (3.90-5.90) x10(6)uL Hgb (12.9-17.7) g/dL Hct (38.3-50.1) % MCV (80.8-98.7) fL MCH (27.0-33.3) pg MCHC (28.7-35.3) g/dL RDW (12.4-15.0) % Plt Count (117-477) x10(3)uL MPV (6.7-11.0) fL Neut % (Auto) (40.3-71.8) % Lymph % (Auto) (15.8-45.3) % Fleming % (Auto) (5.5-15.2) % Eos % (Auto) (0.1-6.8) % Baso % (Auto) (0.3-3.8) % Neut # (Auto) (1.7-6.9) x10-3/uL Lymph # (Auto) (0.5-4.5) x10-3/uL Fleming # (Auto) (0.0-1.2) x10-3/uL Eos # (Auto) (0.0-0.6) x10-3/uL Baso # (Auto) (0.0-0.3) x10-3/uL Sodium (135-145) mmol/L Potassium (3.5-5.3) mmol/L Chloride (100-110) mmol/L Carbon Dioxide (21-32) mmol/L BUN (7-18) mg/dL Creatinine (0.70-1.30) mg/dL Est Cr Clr Drug Dosing mL/min Estimated GFR (MDRD) (>60) BUN/Creatinine Ratio (9-20) Glucose (80-116) mg/dL Lactic Acid 1.2 (0.4-2.0) mmol/L Calcium (8.6-10.2) mg/dL Total Bilirubin (0.1-1.3) mg/dL AST (5-25) IU/L ALT (12-36) U/L Alkaline Phosphatase (56-112) IU/L C-Reactive Protein (0.5-0.9) mg/dL Total Protein (6.0-8.0) g/dL Albumin (3.2-4.6) g/dL Globulin g/dL Albumin/Globulin Ratio Result Diagrams: 06/09/20 15:39 06/09/20 15:39 Sepsis Event Note - Evaluation Sepsis Screening Result: No Definite Risk - Focused Exam Vital Signs: Vital Signs Temp Pulse Resp BP Pulse Ox 06/09/20 15:16 98.2 F 90 18 130/95 H 98 *Q Meaningful Use (ADM) - VTE Risk Assess *Q Each Risk Factor Represents 1 Point: None Total Score 1 Point Risk Factors: 0 Each Risk Factor Represents 2 Points: Age 60 - 74 Years Total Score 2 Point Risk Factors: 2 Each Risk Factor Represents 3 Points: None Total Score 3 Point Risk Factors: 0 Each Risk Factor Represents 5 Points: None Total Score 5 Point Risk Factors: 0 Venous Thromboembolism Risk Factor Score *Q: 2 - Problem List (1) Bursitis of left elbow SNOMED Code(s): 213894311 ICD Code: M70.32 - OTHER BURSITIS OF ELBOW, LEFT ELBOW Status: Acute Current Visit: Yes Qualifiers: Elbow bursitis location: olecranon bursitis Qualified Code(s): M70.22 - Olecranon bursitis, left elbow (2) Cellulitis SNOMED Code(s): 684927275 ICD Code: L03.90 - CELLULITIS, UNSPECIFIED Status: Acute Current Visit: Yes Qualifiers: Site of cellulitis: extremity Site of cellulitis of extremity: upper extremity Laterality: left Qualified Code(s): L03.114 - Cellulitis of left upper limb (3) COPD (chronic obstructive pulmonary disease) SNOMED Code(s): 96993534 ICD Code: J44.9 - CHRONIC OBSTRUCTIVE PULMONARY DISEASE, UNSPECIFIED Status: Chronic Current Visit: Yes Qualifiers: COPD type: unspecified COPD Qualified Code(s): J44.9 - Chronic obstructive pulmonary disease, unspecified (4) Type 2 diabetes mellitus SNOMED Code(s): 96382123 ICD Code: E11.9 - TYPE 2 DIABETES MELLITUS WITHOUT COMPLICATIONS Status: Chronic Current Visit: Yes Problem Details: Qualifiers: 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 Problem List Initiated/Reviewed/Updated: Yes Orders Last 24hrs: Active Orders 24 hr Category Date Time Status Patient Status [ADT] Routine ADT 06/09/20 16:19 Active Ambulate [RC] ASDIRECTED Care 06/09/20 16:19 Active Ambulate [RC] PER UNIT ROUTINE Care 06/09/20 16:19 Active Blood Glucose Check, Bedside [RC] WITHMEALSANDBED Care 06/09/20 16:19 Active Cooling Warming Measures [RC] ASDIRECTED Care 06/09/20 16:23 Active Elevate Extremity [RC] BID Care 06/09/20 16:23 Active Oxygen Therapy [RC] PRN Care 06/09/20 16:19 Active VTE/DVT Education [RC] Per Unit Routine Care 06/09/20 16:19 Active Vital Signs [RC] Q4H Care 06/09/20 16:19 Active Consistent Carbohydrate Diet [DIET] Diet 06/09/20 Dinner Active Elbow Min 3V Lt [CR] Stat Exams 06/09/20 15:31 Taken BASIC METABOLIC PANEL,BMP [CHEM] Routine Lab 06/10/20 06:00 Ordered CBC WITH AUTO DIFF [HEME] Routine Lab 06/10/20 06:00 Ordered CORONAVIRUS COVID-19 JUAN CARLOS [MOLEC] Stat Lab 06/09/20 16:34 Received CULTURE BLOOD [BC] Urgent Lab 06/09/20 15:39 Received CULTURE BLOOD [BC] Urgent Lab 06/09/20 15:44 Received VANCOMYCIN TROUGH [CHEM] Timed Lab 06/11/20 05:00 Ordered Acetaminophen [Tylenol Extra Strength] Med 06/09/20 16:30 Ordered 500 mg PO Q6H Ibuprofen [Motrin] Med 06/09/20 16:30 Ordered 200 mg PO Q6H Ondansetron [Zofran ODT] Med 06/09/20 16:19 Ordered 4 mg PO Q4H PRN Pharmacy to Dose - Vancomycin Med 06/09/20 16:15 Pending 1 dose .XX ASDIRECTED Sodium Chloride 0.9% [Saline Flush] Med 06/09/20 15:32 Active 10 ml FLUSH ASDIRECTED PRN VANCOmycin 1.5 GM/300 ML 300 ml Med 06/09/20 17:30 Active IV Q12H ceFAZolin [Ancef 2 GM/50 ML] 50 ml Med 06/09/20 17:00 Active IV Q8H Blood Culture x2 Reflex Set [OM.PC] Urgent Oth 06/09/20 15:30 Ordered Ice Pack [Ice Therapy] [OM.PC] Routine Oth 06/09/20 16:23 Ordered Saline Lock Insert [OM.PC] Routine Oth 06/09/20 15:32 Ordered Resuscitation Status Routine Resus Stat 06/09/20 16:19 Ordered Medication Orders Acetaminophen (Acetaminophen 500 Mg Tab) 500 mg PO Q6H HERACLIO Cefazolin Sodium/Dextrose (Ancef 2 Gm/50 Ml) 50 mls @ 100 mls/hr IV Q8H HERACLIO Vancomycin HCl (Vancomycin 1.5 Gm/300 Ml) 300 mls @ 200 mls/hr IV Q12H HERACLIO Ibuprofen (Ibuprofen 200 Mg Tab) 200 mg PO Q6H HERACLIO Ondansetron HCl (Ondansetron 4 Mg Tab.Dis) 4 mg PO Q4H PRN PRN Reason: nausea, able to take PO Sodium Chloride (Sodium Chloride 0.9% 10 Ml Syringe) 10 ml FLUSH ASDIRECTED PRN PRN Reason: Keep Vein Open Last Admin: 06/09/20 15:40 Dose: 10 ml Documented by: CAITLIN Vancomycin HCl (Pharmacy To Dose - Vancomycin) 1 dose .XX ASDIRECTED [facility] Assessment/Plan Comment:: 1. Admit to inpatient service for suspected septic bursitis/cellulitis of left elbow. 2. Bursitis/cellulitis: Dr Buckley did not feel he need drainage of bursa again, culture from clinic was negative. Ancef 2 gram IV q8h and Vancomycin per pharmacy started. CBC, BMP for tomorrow. Lactic acid pending. BC pending. 3. DM: resume home medications, Accuchecks ac & hs, Humalog medium dose sliding scale. Hold Metformin & Victoza & Glimepiride. 4. DIET: Consistent carb diet. 5. Activity: ambulate. 6. DVT prophylaxis: Ambulate, TEDs BLE. 7. CODE STATUS: FULL. 8. Discharge planning: failed outpatient treatment, most likely require 4-5 days of IV antibiotics. - Mortality Measure Prognosis:: Good
[2020-06-09] MEDS ORDERED: Glucagon,Human Recombinant 1 MG Vial IM PRN (17:05)
[2020-06-09] MEDS ORDERED: 50% Dextrose in Water 50 ML Syringe IVPUSH PRN (17:05)
[2020-06-09] MEDS ORDERED: Fluticasone Propionate Nasal Spray 16 GM Bottle NASBOTH PRN (17:16)
[2020-06-09] MEDS: Acetaminophen 500 MG Tab PO SCH ×2 (17:20→22:10)
[2020-06-09] MEDS: Ibuprofen 200 MG Tab PO SCH ×2 (17:21→22:10)
[2020-06-09] MEDS ORDERED: VANCOmycin 1.5 GM/300 ML 300 ML IV SCH (17:30)
--- NOTE | 2020-06-09 17:30 | CR ---
INDICATION: Question septic bursitis versus septic arthritis. LEFT ELBOW: Three views of the left elbow were obtained 06/09/20 - no comparisons. There are some mild degenerative changes at the medial elbow joint compartment with the joint space fairly well maintained both medially and laterally. There is also a small spur off the posterior superior aspect of the olecranon process at attachments of tendons. No evidence of a significant joint effusion, fracture, dislocation or other significant bone or joint abnormality was identified. If symptoms persist - if occult abnormality is suspected clinically, additional examination may be warranted such as nuclear bone imaging or possibly MRI of the left elbow. LEED
[2020-06-09] MEDS: Insulin Lispro 100 Unit/ML 3 ML KwikPen SUBCUT SCH (17:43)
[2020-06-09] MEDS: VANCOmycin 1.5 GM/300 ML 300 ML IV SCH (17:51)
[2020-06-09] MEDS: Formoterol/Mometasone 200-5 MCG 8.8 GM Inhaler IH SCH (20:11)
[2020-06-09] MEDS: Erythromycin Base 0.5% Ophth Oint 3.5 GM Tube EYEBOTH SCH (20:12)
[2020-06-09] MEDS: Montelukast 10 MG Tab PO SCH (20:12)
[2020-06-09] MEDS: Gabapentin 400 MG Cap PO SCH (20:12)
[2020-06-09] MEDS: rOPINIRole 0.5 MG Tab PO SCH (20:12)
[2020-06-09] MEDS: Amitriptyline 25 MG Tab PO SCH (20:12)
[2020-06-10] MEDS: VANCOmycin 1.5 GM/300 ML 300 ML IV SCH ×2 (05:03→18:10)
[2020-06-10] MEDS: Sodium Chloride 0.9% 10 ML Syringe FLUSH PRN ×2 (05:03→11:13)
[2020-06-10] MEDS: Acetaminophen 500 MG Tab PO SCH ×4 (05:10→22:28)
[2020-06-10] MEDS: Ibuprofen 200 MG Tab PO SCH ×2 (05:10→10:19)
[2020-06-10] MEDS ORDERED: Non-Formulary Medication 1 Each (Canagliflozin [Invokana] 100 MG Tablet) PO SCH (07:30)
[2020-06-10] MEDS: Formoterol/Mometasone 200-5 MCG 8.8 GM Inhaler IH SCH ×2 (08:47→20:41)
[2020-06-10] MEDS: Gabapentin 400 MG Cap PO SCH ×3 (08:48→20:43)
[2020-06-10] MEDS: Losartan 25 MG Tab PO SCH (08:49)
[2020-06-10] MEDS: Roflumilast 500 MCG Tab PO SCH (08:49)
[2020-06-10] MEDS: Allopurinol 100 MG Tab PO SCH (08:50)
[2020-06-10] MEDS: Insulin Lispro 100 Unit/ML 3 ML KwikPen SUBCUT SCH ×3 (08:51→18:12)
[2020-06-10] MEDS: Albuterol 0.083% 2.5 MG/3 ML Neb Soln NEB PRN (11:00)
[2020-06-10] MEDS: Ketorolac 30 MG/ML SDV IVPUSH SCH ×3 (11:12→22:30)
[2020-06-10] MEDS ORDERED: Insulin Lispro 100 Unit/ML 3 ML KwikPen SUBCUT ONE (11:23)
[2020-06-10] MEDS: atorvaSTATin 10 MG Tab PO SCH (11:29)
[2020-06-10] MEDS: NIFEdipine 30 MG Tab.ER PO SCH (11:30)
[2020-06-10] MEDS: Magnesium Oxide 400 MG Tab PO SCH (11:30)
--- NOTE | 2020-06-10 14:01 | PCM.PN ---
- General Info Date of Service: 06/10/20 Subjective Update: Justin was unable to sleep much last night, states pain kept him up. He also states he usually coughs a lot when he gets up in the mornings then is better. He does use Albuterol nebs at home, which helps. No fevers, or chills. No nausea or vomiting. No diarrhea or constipation. Feels like his arm is more swollen, inside of elbow is better. Functional Status: Reports: Tolerating Diet, Urinating - Patient Data Vitals - Most Recent: Last Vital Signs Temp 97.7 F 06/10/20 13:00 Pulse 77 06/10/20 13:00 Resp 20 06/10/20 13:00 BP 125/70 06/10/20 13:00 Pulse Ox 93 L 06/10/20 13:00 Weight - Most Recent: 239 lb Lab Results Last 24 Hours: Laboratory Results - last 24 hr 06/09/20 06/09/20 06/09/20 Range/Units 15:39 15:39 15:44 WBC 10.5 H (3.2-10.1) x10-3/uL RBC 4.47 (3.90-5.90) x10(6)uL Hgb 13.4 (12.9-17.7) g/dL Hct 41.3 (38.3-50.1) % MCV 92.4 (80.8-98.7) fL MCH 29.9 (27.0-33.3) pg MCHC 32.4 (28.7-35.3) g/dL RDW 15.5 H (12.4-15.0) % Plt Count 213 (117-477) x10(3)uL MPV 9.3 (6.7-11.0) fL Neut % (Auto) 67.1 (40.3-71.8) % Lymph % (Auto) 19.6 (15.8-45.3) % [place] % (Auto) 8.6 (5.5-15.2) % Eos % (Auto) 3.6 (0.1-6.8) % Baso % (Auto) 1.1 (0.3-3.8) % Neut # (Auto) 7.0 H (1.7-6.9) x10-3/uL Lymph # (Auto) 2.1 (0.5-4.5) x10-3/uL [place] # (Auto) 0.9 (0.0-1.2) x10-3/uL Eos # (Auto) 0.4 (0.0-0.6) x10-3/uL Baso # (Auto) 0.1 (0.0-0.3) x10-3/uL Sodium 138 (135-145) mmol/L Potassium 4.2 (3.5-5.3) mmol/L Chloride 102 (100-110) mmol/L Carbon Dioxide 27 (21-32) mmol/L BUN 20 H (7-18) mg/dL Creatinine 0.9 (0.70-1.30) mg/dL Est Cr Clr Drug Dosing 91.80 mL/min Estimated GFR (MDRD) > 60 (>60) BUN/Creatinine Ratio 22.2 H (9-20) Glucose 166 H D (80-116) mg/dL POC Glucose (74-100) mg/dL Lactic Acid (0.4-2.0) mmol/L Calcium 9.4 (8.6-10.2) mg/dL Total Bilirubin 0.3 (0.1-1.3) mg/dL AST 29 H (5-25) IU/L ALT 30 D (12-36) U/L Alkaline Phosphatase 86 (56-112) IU/L C-Reactive Protein 5.3 H* (0.5-0.9) mg/dL Total Protein 8.5 H (6.0-8.0) g/dL Albumin 3.7 (3.2-4.6) g/dL Globulin 4.8 g/dL Albumin/Globulin Ratio 0.8 SARS-CoV-2 RNA (JUAN CARLOS) (NEGATIVE) 06/09/20 06/09/20 06/09/20 Range/Units 15:44 16:34 17:40 WBC (3.2-10.1) x10-3/uL RBC (3.90-5.90) x10(6)uL Hgb (12.9-17.7) g/dL Hct (38.3-50.1) % MCV (80.8-98.7) fL MCH (27.0-33.3) pg MCHC (28.7-35.3) g/dL RDW (12.4-15.0) % Plt Count (117-477) x10(3)uL MPV (6.7-11.0) fL Neut % (Auto) (40.3-71.8) % Lymph % (Auto) (15.8-45.3) % [place] % (Auto) (5.5-15.2) % Eos % (Auto) (0.1-6.8) % Baso % (Auto) (0.3-3.8) % Neut # (Auto) (1.7-6.9) x10-3/uL Lymph # (Auto) (0.5-4.5) x10-3/uL [place] # (Auto) (0.0-1.2) x10-3/uL Eos # (Auto) (0.0-0.6) x10-3/uL Baso # (Auto) (0.0-0.3) x10-3/uL Sodium (135-145) mmol/L Potassium (3.5-5.3) mmol/L Chloride (100-110) mmol/L Carbon Dioxide (21-32) mmol/L BUN (7-18) mg/dL Creatinine (0.70-1.30) mg/dL Est Cr Clr Drug Dosing mL/min Estimated GFR (MDRD) (>60) BUN/Creatinine Ratio (9-20) Glucose (80-116) mg/dL POC Glucose 104 H (74-100) mg/dL Lactic Acid 1.2 (0.4-2.0) mmol/L Calcium (8.6-10.2) mg/dL Total Bilirubin (0.1-1.3) mg/dL AST (5-25) IU/L ALT (12-36) U/L Alkaline Phosphatase (56-112) IU/L C-Reactive Protein (0.5-0.9) mg/dL Total Protein (6.0-8.0) g/dL Albumin (3.2-4.6) g/dL Globulin g/dL Albumin/Globulin Ratio SARS-CoV-2 RNA (JUAN CARLOS) Negative (NEGATIVE) 06/09/20 06/10/20 06/10/20 Range/Units 21:03 06:35 06:35 WBC 6.8 (3.2-10.1) x10-3/uL RBC 4.32 (3.90-5.90) x10(6)uL Hgb 13.0 (12.9-17.7) g/dL Hct 40.0 (38.3-50.1) % MCV 92.7 (80.8-98.7) fL MCH 30.1 (27.0-33.3) pg MCHC 32.4 (28.7-35.3) g/dL RDW 15.7 H (12.4-15.0) % Plt Count 186 (117-477) x10(3)uL MPV 9.0 (6.7-11.0) fL Neut % (Auto) 69.2 (40.3-71.8) % Lymph % (Auto) 19.8 (15.8-45.3) % [place] % (Auto) 5.5 (5.5-15.2) % Eos % (Auto) 5.0 (0.1-6.8) % Baso % (Auto) 0.5 (0.3-3.8) % Neut # (Auto) 4.7 (1.7-6.9) x10-3/uL Lymph # (Auto) 1.4 (0.5-4.5) x10-3/uL [place] # (Auto) 0.4 (0.0-1.2) x10-3/uL Eos # (Auto) 0.3 (0.0-0.6) x10-3/uL Baso # (Auto) 0.0 (0.0-0.3) x10-3/uL Sodium 138 (135-145) mmol/L Potassium 4.2 (3.5-5.3) mmol/L Chloride 102 (100-110) mmol/L Carbon Dioxide 27 (21-32) mmol/L BUN 19 H (7-18) mg/dL Creatinine 0.8 (0.70-1.30) mg/dL Est Cr Clr Drug Dosing 103.28 mL/min Estimated GFR (MDRD) > 60 (>60) BUN/Creatinine Ratio 23.8 H (9-20) Glucose 119 H (80-116) mg/dL POC Glucose 112 H (74-100) mg/dL Lactic Acid (0.4-2.0) mmol/L Calcium 8.8 (8.6-10.2) mg/dL Total Bilirubin (0.1-1.3) mg/dL AST (5-25) IU/L ALT (12-36) U/L Alkaline Phosphatase (56-112) IU/L C-Reactive Protein (0.5-0.9) mg/dL Total Protein (6.0-8.0) g/dL Albumin (3.2-4.6) g/dL Globulin g/dL Albumin/Globulin Ratio SARS-CoV-2 RNA (JUAN CARLOS) (NEGATIVE) 06/10/20 Range/Units 11:20 WBC (3.2-10.1) x10-3/uL RBC (3.90-5.90) x10(6)uL Hgb (12.9-17.7) g/dL Hct (38.3-50.1) % MCV (80.8-98.7) fL MCH (27.0-33.3) pg MCHC (28.7-35.3) g/dL RDW (12.4-15.0) % Plt Count (117-477) x10(3)uL MPV (6.7-11.0) fL Neut % (Auto) (40.3-71.8) % Lymph % (Auto) (15.8-45.3) % [place] % (Auto) (5.5-15.2) % Eos % (Auto) (0.1-6.8) % Baso % (Auto) (0.3-3.8) % Neut # (Auto) (1.7-6.9) x10-3/uL Lymph # (Auto) (0.5-4.5) x10-3/uL [place] # (Auto) (0.0-1.2) x10-3/uL Eos # (Auto) (0.0-0.6) x10-3/uL Baso # (Auto) (0.0-0.3) x10-3/uL Sodium (135-145) mmol/L Potassium (3.5-5.3) mmol/L Chloride (100-110) mmol/L Carbon Dioxide (21-32) mmol/L BUN (7-18) mg/dL Creatinine (0.70-1.30) mg/dL Est Cr Clr Drug Dosing mL/min Estimated GFR (MDRD) (>60) BUN/Creatinine Ratio (9-20) Glucose (80-116) mg/dL POC Glucose 172 H (74-100) mg/dL Lactic Acid (0.4-2.0) mmol/L Calcium (8.6-10.2) mg/dL Total Bilirubin (0.1-1.3) mg/dL AST (5-25) IU/L ALT (12-36) U/L Alkaline Phosphatase (56-112) IU/L C-Reactive Protein (0.5-0.9) mg/dL Total Protein (6.0-8.0) g/dL Albumin (3.2-4.6) g/dL Globulin g/dL Albumin/Globulin Ratio SARS-CoV-2 RNA (JUAN CARLOS) (NEGATIVE) Med Orders - Current: Current Medications Acetaminophen (Acetaminophen 500 Mg Tab) 500 mg PO Q6H [facility] Last Admin: 06/10/20 10:20 Dose: 500 mg Documented by: Albuterol (Albuterol 0.083% 2.5 Mg/3 Ml Neb Soln) 2.5 mg NEB Q4H PRN PRN Reason: Shortness of Breath Last Admin: 06/10/20 11:00 Dose: 2.5 mg Documented by: Allopurinol (Allopurinol 100 Mg Tab) 100 mg PO DAILY [facility] Last Admin: 06/10/20 08:50 Dose: 100 mg Documented by: Amitriptyline HCl (Amitriptyline 25 Mg Tab) 50 mg PO BEDTIME [facility] Last Admin: 06/09/20 20:12 Dose: 50 mg Documented by: Atorvastatin Calcium (Atorvastatin 10 Mg Tab) 10 mg PO DAILY@1200 [facility] Last Admin: 06/10/20 11:29 Dose: 10 mg Documented by: Bupropion HCl (Bupropion 75 Mg Tab) 75 mg PO WITHDINNER [facility] Last Admin: 06/09/20 17:52 Dose: 75 mg Documented by: Bupropion HCl (Bupropion 75 Mg Tab) 150 mg PO DAILY [facility] Last Admin: 06/10/20 08:48 Dose: 150 mg Documented by: Dextrose/Water (50% Dextrose In Water 50 Ml Syringe) 50 ml IVPUSH ASDIRECTED PRN PRN Reason: Hypoglycemia Erythromycin (Erythromycin Base 0.5% Ophth Oint 3.5 Gm Tube) 0 gm EYEBOTH BEDTIME [facility] Last Admin: 06/09/20 20:12 Dose: Not Given Documented by: Fluticasone Propionate (Fluticasone Propionate Nasal [place] 16 Gm Bottle) 0 gm NASBOTH BID PRN PRN Reason: Allergies Gabapentin (Gabapentin 400 Mg Cap) 1,200 mg PO TID [facility] Last Admin: 06/10/20 08:48 Dose: 1,200 mg Documented by: Glucagon (Glucagon,Human Recombinant 1 Mg Vial) 1 mg IM ASDIRECTED PRN PRN Reason: Hypoglycemia Cefazolin Sodium/Dextrose (Ancef 2 Gm/50 Ml) 50 mls @ 100 mls/hr IV Q8H [facility] Last Admin: 06/10/20 08:46 Dose: 100 mls/hr Documented by: Vancomycin HCl (Vancomycin 1.5 Gm/300 Ml) 300 mls @ 200 mls/hr IV Q12H [facility] Last Admin: 06/10/20 05:03 Dose: 200 mls/hr Documented by: Insulin Human Lispro (Insulin Lispro 100 Unit/Ml 3 Ml Kwikpen) 0 unit SUBCUT TIDMEALS [facility]; Protocol Last Admin: 06/10/20 11:25 Dose: 2 units Documented by: Ketorolac Tromethamine (Ketorolac 30 Mg/Ml Sdv) 30 mg IVPUSH Q6H [facility] Stop: 06/15/20 10:37 Last Admin: 06/10/20 11:12 Dose: 30 mg Documented by: Losartan Potassium (Losartan 25 Mg Tab) 25 mg PO DAILY [facility] Last Admin: 06/10/20 08:49 Dose: 25 mg Documented by: Magnesium Oxide (Magnesium Oxide 400 Mg Tab) 400 mg PO DAILY@1200 [facility] Last Admin: 06/10/20 11:30 Dose: 400 mg Documented by: Mometasone Furoate/Formoterol Fumar (Formoterol/Mometasone 200-5 Mcg 8.8 Gm Inhaler) 2 puff IH BID [facility] Last Admin: 06/10/20 08:47 Dose: 2 puff Documented by: Montelukast Sodium (Montelukast 10 Mg Tab) 10 mg PO BEDTIME [facility] Last Admin: 06/09/20 20:12 Dose: 10 mg Documented by: Nifedipine (Nifedipine 30 Mg Tab.Er) 60 mg PO DAILY@1200 [facility] Last Admin: 06/10/20 11:30 Dose: 60 mg Documented by: Ondansetron HCl (Ondansetron 4 Mg Tab.Dis) 4 mg PO Q4H PRN PRN Reason: nausea, able to take PO Roflumilast (Roflumilast 500 Mcg Tab) 500 mcg PO DAILY [facility] Last Admin: 06/10/20 08:49 Dose: 500 mcg Documented by: Ropinirole HCl (Ropinirole 0.5 Mg Tab) 0.25 mg PO BEDTIME [facility] Last Admin: 06/09/20 20:12 Dose: 0.25 mg Documented by: Sodium Chloride (Sodium Chloride 0.9% 10 Ml Syringe) 10 ml FLUSH ASDIRECTED PRN PRN Reason: Keep Vein Open Last Admin: 06/10/20 11:13 Dose: 10 ml Documented by: Vancomycin HCl (Pharmacy To Dose - Vancomycin) 1 dose .XX ASDIRECTED [facility] Discontinued Medications Ibuprofen (Ibuprofen 200 Mg Tab) 200 mg PO Q6H [facility] Last Admin: 06/10/20 10:19 Dose: 200 mg Documented by: Non-Formulary Medication (Canagliflozin [Invokana]) 100 mg PO ACBREAKFAST [facility] - Exam General: Alert, Oriented, Cooperative, No Acute Distress Lungs: Clear to Auscultation (poor air exchange), Normal Respiratory Effort, Wheezing (occasional). No: Crackles Cardiovascular: Regular Rate, Regular Rhythm GI/Abdominal Exam: Normal Bowel Sounds, Soft, Non-Tender, No Distention Extremities: Joint Swelling (left elbow), Limited Range of Motion (improved flexion, 125 degrees. ), Redness (same over proximal forearm, improved over left antecubital fossa. TTP over left proximal forearm. Used skin marker to document edges of swelling/erythema). No: Increased Warmth Peripheral Pulses: 2+: Radial (L), Radial (R) Wound/Incisions: No Drainage, Erythema (stable over left proximal forearm), Erythema Improving (L antecubital fossa) - Patient Data Lab Results Last 24 hrs: Laboratory Results - last 24 hr 06/09/20 06/09/20 06/09/20 Range/Units 15:39 15:39 15:44 WBC 10.5 H (3.2-10.1) x10-3/uL RBC 4.47 (3.90-5.90) x10(6)uL Hgb 13.4 (12.9-17.7) g/dL Hct 41.3 (38.3-50.1) % MCV 92.4 (80.8-98.7) fL MCH 29.9 (27.0-33.3) pg MCHC 32.4 (28.7-35.3) g/dL RDW 15.5 H (12.4-15.0) % Plt Count 213 (117-477) x10(3)uL MPV 9.3 (6.7-11.0) fL Neut % (Auto) 67.1 (40.3-71.8) % Lymph % (Auto) 19.6 (15.8-45.3) % [place] % (Auto) 8.6 (5.5-15.2) % Eos % (Auto) 3.6 (0.1-6.8) % Baso % (Auto) 1.1 (0.3-3.8) % Neut # (Auto) 7.0 H (1.7-6.9) x10-3/uL Lymph # (Auto) 2.1 (0.5-4.5) x10-3/uL [place] # (Auto) 0.9 (0.0-1.2) x10-3/uL Eos # (Auto) 0.4 (0.0-0.6) x10-3/uL Baso # (Auto) 0.1 (0.0-0.3) x10-3/uL Sodium 138 (135-145) mmol/L Potassium 4.2 (3.5-5.3) mmol/L Chloride 102 (100-110) mmol/L Carbon Dioxide 27 (21-32) mmol/L BUN 20 H (7-18) mg/dL Creatinine 0.9 (0.70-1.30) mg/dL Est Cr Clr Drug Dosing 91.80 mL/min Estimated GFR (MDRD) > 60 (>60) BUN/Creatinine Ratio 22.2 H (9-20) Glucose 166 H D (80-116) mg/dL POC Glucose (74-100) mg/dL Lactic Acid (0.4-2.0) mmol/L Calcium 9.4 (8.6-10.2) mg/dL Total Bilirubin 0.3 (0.1-1.3) mg/dL AST 29 H (5-25) IU/L ALT 30 D (12-36) U/L Alkaline Phosphatase 86 (56-112) IU/L C-Reactive Protein 5.3 H* (0.5-0.9) mg/dL Total Protein 8.5 H (6.0-8.0) g/dL Albumin 3.7 (3.2-4.6) g/dL Globulin 4.8 g/dL Albumin/Globulin Ratio 0.8 SARS-CoV-2 RNA (JUAN CARLOS) (NEGATIVE) 06/09/20 06/09/20 06/09/20 Range/Units 15:44 16:34 17:40 WBC (3.2-10.1) x10-3/uL RBC (3.90-5.90) x10(6)uL Hgb (12.9-17.7) g/dL Hct (38.3-50.1) % MCV (80.8-98.7) fL MCH (27.0-33.3) pg MCHC (28.7-35.3) g/dL RDW (12.4-15.0) % Plt Count (117-477) x10(3)uL MPV (6.7-11.0) fL Neut % (Auto) (40.3-71.8) % Lymph % (Auto) (15.8-45.3) % [place] % (Auto) (5.5-15.2) % Eos % (Auto) (0.1-6.8) % Baso % (Auto) (0.3-3.8) % Neut # (Auto) (1.7-6.9) x10-3/uL Lymph # (Auto) (0.5-4.5) x10-3/uL [place] # (Auto) (0.0-1.2) x10-3/uL Eos # (Auto) (0.0-0.6) x10-3/uL Baso # (Auto) (0.0-0.3) x10-3/uL Sodium (135-145) mmol/L Potassium (3.5-5.3) mmol/L Chloride (100-110) mmol/L Carbon Dioxide (21-32) mmol/L BUN (7-18) mg/dL Creatinine (0.70-1.30) mg/dL Est Cr Clr Drug Dosing mL/min Estimated GFR (MDRD) (>60) BUN/Creatinine Ratio (9-20) Glucose (80-116) mg/dL POC Glucose 104 H (74-100) mg/dL Lactic Acid 1.2 (0.4-2.0) mmol/L Calcium (8.6-10.2) mg/dL Total Bilirubin (0.1-1.3) mg/dL AST (5-25) IU/L ALT (12-36) U/L Alkaline Phosphatase (56-112) IU/L C-Reactive Protein (0.5-0.9) mg/dL Total Protein (6.0-8.0) g/dL Albumin (3.2-4.6) g/dL Globulin g/dL Albumin/Globulin Ratio SARS-CoV-2 RNA (JUAN CARLOS) Negative (NEGATIVE) 06/09/20 06/10/20 06/10/20 Range/Units 21:03 06:35 06:35 WBC 6.8 (3.2-10.1) x10-3/uL RBC 4.32 (3.90-5.90) x10(6)uL Hgb 13.0 (12.9-17.7) g/dL Hct 40.0 (38.3-50.1) % MCV 92.7 (80.8-98.7) fL MCH 30.1 (27.0-33.3) pg MCHC 32.4 (28.7-35.3) g/dL RDW 15.7 H (12.4-15.0) % Plt Count 186 (117-477) x10(3)uL MPV 9.0 (6.7-11.0) fL Neut % (Auto) 69.2 (40.3-71.8) % Lymph % (Auto) 19.8 (15.8-45.3) % [place] % (Auto) 5.5 (5.5-15.2) % Eos % (Auto) 5.0 (0.1-6.8) % Baso % (Auto) 0.5 (0.3-3.8) % Neut # (Auto) 4.7 (1.7-6.9) x10-3/uL Lymph # (Auto) 1.4 (0.5-4.5) x10-3/uL [place] # (Auto) 0.4 (0.0-1.2) x10-3/uL Eos # (Auto) 0.3 (0.0-0.6) x10-3/uL Baso # (Auto) 0.0 (0.0-0.3) x10-3/uL Sodium 138 (135-145) mmol/L Potassium 4.2 (3.5-5.3) mmol/L Chloride 102 (100-110) mmol/L Carbon Dioxide 27 (21-32) mmol/L BUN 19 H (7-18) mg/dL Creatinine 0.8 (0.70-1.30) mg/dL Est Cr Clr Drug Dosing 103.28 mL/min Estimated GFR (MDRD) > 60 (>60) BUN/Creatinine Ratio 23.8 H (9-20) Glucose 119 H (80-116) mg/dL POC Glucose 112 H (74-100) mg/dL Lactic Acid (0.4-2.0) mmol/L Calcium 8.8 (8.6-10.2) mg/dL Total Bilirubin (0.1-1.3) mg/dL AST (5-25) IU/L ALT (12-36) U/L Alkaline Phosphatase (56-112) IU/L C-Reactive Protein (0.5-0.9) mg/dL Total Protein (6.0-8.0) g/dL Albumin (3.2-4.6) g/dL Globulin g/dL Albumin/Globulin Ratio SARS-CoV-2 RNA (JUAN CARLOS) (NEGATIVE) 06/10/20 Range/Units 11:20 WBC (3.2-10.1) x10-3/uL RBC (3.90-5.90) x10(6)uL Hgb (12.9-17.7) g/dL Hct (38.3-50.1) % MCV (80.8-98.7) fL MCH (27.0-33.3) pg MCHC (28.7-35.3) g/dL RDW (12.4-15.0) % Plt Count (117-477) x10(3)uL MPV (6.7-11.0) fL Neut % (Auto) (40.3-71.8) % Lymph % (Auto) (15.8-45.3) % [place] % (Auto) (5.5-15.2) % Eos % (Auto) (0.1-6.8) % Baso % (Auto) (0.3-3.8) % Neut # (Auto) (1.7-6.9) x10-3/uL Lymph # (Auto) (0.5-4.5) x10-3/uL [place] # (Auto) (0.0-1.2) x10-3/uL Eos # (Auto) (0.0-0.6) x10-3/uL Baso # (Auto) (0.0-0.3) x10-3/uL Sodium (135-145) mmol/L Potassium (3.5-5.3) mmol/L Chloride (100-110) mmol/L Carbon Dioxide (21-32) mmol/L BUN (7-18) mg/dL Creatinine (0.70-1.30) mg/dL Est Cr Clr Drug Dosing mL/min Estimated GFR (MDRD) (>60) BUN/Creatinine Ratio (9-20) Glucose (80-116) mg/dL POC Glucose 172 H (74-100) mg/dL Lactic Acid (0.4-2.0) mmol/L Calcium (8.6-10.2) mg/dL Total Bilirubin (0.1-1.3) mg/dL AST (5-25) IU/L ALT (12-36) U/L Alkaline Phosphatase (56-112) IU/L C-Reactive Protein (0.5-0.9) mg/dL Total Protein (6.0-8.0) g/dL Albumin (3.2-4.6) g/dL Globulin g/dL Albumin/Globulin Ratio SARS-CoV-2 RNA (JUAN CARLOS) (NEGATIVE) Result Diagrams: 06/10/20 06:35 06/10/20 06:35 Sepsis Event Note - Evaluation Sepsis Screening Result: No Definite Risk - Focused Exam Vital Signs: Vital Signs Temp Pulse Resp BP BP Pulse Ox 06/10/20 13:00 97.7 F 77 20 125/70 93 L 06/10/20 11:30 125/70 03/20/21 09:00 97.8 F 73 20 115/68 91 L 06/10/20 08:49 115/65 06/10/20 05:00 98.3 F 84 16 120/72 93 L - Problem List & Annotations (1) Bursitis of left elbow SNOMED Code(s): 378336736 Code(s): M70.32 - OTHER BURSITIS OF ELBOW, LEFT ELBOW Status: Acute Current Visit: Yes Qualifiers: Elbow bursitis location: olecranon bursitis Qualified Code(s): M70.22 - Olecranon bursitis, left elbow (2) Cellulitis SNOMED Code(s): 508117899 Code(s): L03.90 - CELLULITIS, UNSPECIFIED Status: Acute Current Visit: Ye s Qualifiers: Site of cellulitis: extremity Site of cellulitis of extremity: upper extremity Laterality: left Qualified Code(s): L03.114 - Cellulitis of left upper limb (3) COPD (chronic obstructive pulmonary disease) SNOMED Code(s): 63887570 Code(s): J44.9 - CHRONIC OBSTRUCTIVE PULMONARY DISEASE, UNSPECIFIED Status: Chronic Current Visit: Yes Qualifiers: COPD type: unspecified COPD Qualified Code(s): J44.9 - Chronic obstructive pulmonary disease, unspecified (4) Type 2 diabetes mellitus SNOMED Code(s): 50200323 Code(s): E11.9 - TYPE 2 DIABETES MELLITUS WITHOUT COMPLICATIONS Status: Chronic Current Visit: Yes Qualifiers: Diabetes mellitus intermediate designer insulin use: without intermediate designer use Diabetes mellitus complication status: with other specified complication Qualified Code(s): E11.69 - Type 2 diabetes mellitus with other specified complication Annotation/Comment:: (5) Tobacco abuse SNOMED Code(s): 737475789 Code(s): Z72.0 - TOBACCO USE Status: Acute Current Visit: No Annotation/Comment:: Nicotine patch. - Problem List Review Problem List Initiated/Reviewed/Updated: Yes - My Orders Last 24 Hours: My Active Orders 06/09/20 15:30 Blood Culture x2 Reflex Set [OM.PC] Urgent 06/09/20 15:32 Sodium Chloride 0.9% [Saline Flush] 10 ml FLUSH ASDIRECTED PRN Saline Lock Insert [OM.PC] Routine 06/09/20 15:39 CULTURE BLOOD [BC] Urgent 06/09/20 15:44 CULTURE BLOOD [BC] Urgent 06/09/20 Dinner Consistent Carbohydrate Diet [DIET] Pharmacy to Dose - Vancomycin 1 dose .XX ASDIRECTED 06/09/20 16:19 Patient Status [ADT] Routine Ambulate [RC] ASDIRECTED Blood Glucose Check, Bedside [RC] WITHMEALSANDBED Oxygen Therapy [RC] PRN VTE/DVT Education [RC] Per Unit Routine Vital Signs [RC] Q4H Ondansetron [Zofran ODT] 4 mg PO Q4H PRN Resuscitation Status Routine 06/09/20 16:23 Cooling Warming Measures [RC] ASDIRECTED Elevate Extremity [RC] BID Ice Pack [Ice Therapy] [OM.PC] Routine 06/09/20 16:30 Acetaminophen [Tylenol Extra Strength] 500 mg PO Q6H 06/09/20 17:00 ceFAZolin [Ancef 2 GM/50 ML] 50 ml IV Q8H 06/09/20 17:02 Albuterol [Proventil Neb Soln] 2.5 mg NEB Q4H PRN 06/09/20 17:04 RT Aerosol Therapy [RC] .PRN 06/09/20 17:05 Dextrose 50% in Water 50 ml IVPUSH ASDIRECTED PRN Glucagon,Human Recombinant [GlucaGen] 1 mg IM ASDIRECTED PRN 06/09/20 17:16 Fluticasone Propionate [Flonase] 0 gm NASBOTH BID PRN 06/09/20 17:30 VANCOmycin 1.5 GM/300 ML 300 ml IV Q12H 06/09/20 18:00 Insulin Lispro [HumaLOG] See Protocol SUBCUT TIDMEALS buPROPion [Wellbutrin] 75 mg PO WITHDINNER 06/09/20 21:00 Amitriptyline [Elavil] 50 mg PO BEDTIME Erythromycin Base [Erythromycin 0.5% Ophth Oint] 0 gm EYEBOTH BEDTIME Gabapentin [Neurontin] 1,200 mg PO TID Mometasone/Formoterol [Dulera 200-5 MCG] 2 puff IH BID Montelukast [Singulair] 10 mg PO BEDTIME rOPINIRole [Requip] 0.25 mg PO BEDTIME 06/10/20 09:00 Losartan [Cozaar] 25 mg PO DAILY Roflumilast [Daliresp] 500 mcg PO DAILY allopurinoL [Zyloprim] 100 mg PO DAILY buPROPion [Wellbutrin] 150 mg PO DAILY 06/10/20 10:19 Communication Order [RC] Q1H06/10/20 10:45 Ketorolac [Toradol] 30 mg IVPUSH Q6H 06/10/20 12:00 Magnesium Oxide 400 mg PO DAILY@1200 NIFEdipine [Procardia XL] 60 mg PO DAILY@1200 atorvaSTATin [Lipitor] 10 mg PO DAILY@1200 06/10/20 13:05 RT Incentive Spirometry [RC] Q1H06/11/20 05:00 VANCOMYCIN TROUGH [CHEM] Timed - Plan Plan:: 1. Bursitis/cellulitis: Day 2, Ancef 2 gram IV q8h and Vancomycin per pharmacy started. CBC & BMP within normal range. Lactic acid 1.2. BC pending. If swelling worsens, will get CT of left elbow to assess abscess formation. Had negative culture from aspiration in clinic. 2. COPD: Flutter valve, Dulera & Albuterol nebs as needed. 3. DM: resume home medications, Accuchecks ac & hs, Humalog medium dose sliding scale. Hold Metformin & Victoza & Glimepiride. 4. Discharge planning: failed outpatient treatment, most likely require 4-5 days of IV antibiotics.
[2020-06-10] MEDS: Morphine 2 MG/ML SYRINGE IVPUSH PRN (17:46)
[2020-06-10] MEDS ORDERED: Iopamidol 755 Mg/ML 100 ML Bottle IV ONE (18:08)
[2020-06-10] MEDS: Acetaminophen/HYDROcodone 325-10 MG Tab PO PRN ×2 (18:20→22:28)
[2020-06-10] MEDS: Erythromycin Base 0.5% Ophth Oint 3.5 GM Tube EYEBOTH SCH (20:42)
[2020-06-10] MEDS: Montelukast 10 MG Tab PO SCH (20:43)
[2020-06-10] MEDS: Amitriptyline 25 MG Tab PO SCH (20:43)
[2020-06-10] MEDS: rOPINIRole 0.5 MG Tab PO SCH (20:43)
[2020-06-11] MEDS: Ketorolac 30 MG/ML SDV IVPUSH SCH ×3 (05:00→16:19)
[2020-06-11] MEDS: Acetaminophen 500 MG Tab PO SCH ×4 (05:00→22:08)
[2020-06-11] MEDS: VANCOmycin 1.5 GM/300 ML 300 ML IV SCH ×2 (05:39→17:08)
[2020-06-11] MEDS: Sodium Chloride 0.9% 10 ML Syringe FLUSH PRN (07:20)
[2020-06-11] MEDS: Insulin Lispro 100 Unit/ML 3 ML KwikPen SUBCUT SCH ×3 (08:16→17:09)
[2020-06-11] MEDS: Formoterol/Mometasone 200-5 MCG 8.8 GM Inhaler IH SCH ×2 (08:17→20:43)
--- NOTE | 2020-06-11 08:51 | PCM.PN ---
- General Info Date of Service: 06/11/20 Subjective Update: He had worsening swelling and pain yesterday afternoon so CT left elbow was obtained, preliminary report showed 8 x 4 cm fluid collection with thickened wall, with surrounding cellulitis, olecranon bursitis considered. Had discontinue Ibuprofen and started scheduled Toradol, Hydrocodone/APAP for moderate pain and Morphine for severe pain as needed. He did not sleep well due to pain and uncomfortable bed. States his breathing is at his baseline for his COPD. Not coughing this morning. No wheezing. He is constipated, usually goes every day. Has not gone since Friday. Currently NPO. No abdominal pain. No fevers. - Patient Data Vitals - Most Recent: Last Vital Signs Temp 97.9 F 06/11/20 01:00 Pulse 77 06/11/20 01:00 Resp 18 06/11/20 05:00 BP 130/70 06/11/20 01:00 Pulse Ox 93 L 06/11/20 01:00 Weight - Most Recent: 239 lb Lab Results Last 24 Hours: Laboratory Results - last 24 hr 06/10/20 06/10/20 06/10/20 Range/Units 11:20 17:41 20:37 WBC (3.2-10.1) x10-3/uL RBC (3.90-5.90) x10(6)uL Hgb (12.9-17.7) g/dL Hct (38.3-50.1) % MCV (80.8-98.7) fL MCH (27.0-33.3) pg MCHC (28.7-35.3) g/dL RDW (12.4-15.0) % Plt Count (117-477) x10(3)uL MPV (6.7-11.0) fL Neut % (Auto) (40.3-71.8) % Lymph % (Auto) (15.8-45.3) % [place] % (Auto) (5.5-15.2) % Eos % (Auto) (0.1-6.8) % Baso % (Auto) (0.3-3.8) % Neut # (Auto) (1.7-6.9) x10-3/uL Lymph # (Auto) (0.5-4.5) x10-3/uL [place] # (Auto) (0.0-1.2) x10-3/uL Eos # (Auto) (0.0-0.6) x10-3/uL Baso # (Auto) (0.0-0.3) x10-3/uL Sodium (135-145) mmol/L Potassium (3.5-5.3) mmol/L Chloride (100-110) mmol/L Carbon Dioxide (21-32) mmol/L BUN (7-18) mg/dL Creatinine (0.70-1.30) mg/dL Est Cr Clr Drug Dosing mL/min Estimated GFR (MDRD) (>60) BUN/Creatinine Ratio (9-20) Glucose (80-116) mg/dL POC Glucose 172 H 145 H 172 H (74-100) mg/dL Calcium (8.6-10.2) mg/dL Vancomycin Trough (<0.8) ug/mL 06/11/20 06/11/20 Range/Units 05:00 05:00 WBC 7.4 (3.2-10.1) x10-3/uL RBC 4.16 (3.90-5.90) x10(6)uL Hgb 12.3 L (12.9-17.7) g/dL Hct 38.7 (38.3-50.1) % MCV 93.0 (80.8-98.7) fL MCH 29.6 (27.0-33.3) pg MCHC 31.8 (28.7-35.3) g/dL RDW 15.8 H (12.4-15.0) % Plt Count 191 (117-477) x10(3)uL MPV 9.4 (6.7-11.0) fL Neut % (Auto) 58.0 (40.3-71.8) % Lymph % (Auto) 25.3 (15.8-45.3) % [place] % (Auto) 9.3 (5.5-15.2) % Eos % (Auto) 6.8 (0.1-6.8) % Baso % (Auto) 0.6 (0.3-3.8) % Neut # (Auto) 4.3 (1.7-6.9) x10-3/uL Lymph # (Auto) 1.9 (0.5-4.5) x10-3/uL [place] # (Auto) 0.7 (0.0-1.2) x10-3/uL Eos # (Auto) 0.5 (0.0-0.6) x10-3/uL Baso # (Auto) 0.0 (0.0-0.3) x10-3/uL Sodium 137 (135-145) mmol/L Potassium 4.3 (3.5-5.3) mmol/L Chloride 103 (100-110) mmol/L Carbon Dioxide 28 (21-32) mmol/L BUN 18 (7-18) mg/dL Creatinine 0.9 (0.70-1.30) mg/dL Est Cr Clr Drug Dosing 91.80 mL/min Estimated GFR (MDRD) > 60 (>60) BUN/Creatinine Ratio 20.0 (9-20) Glucose 127 H (80-116) mg/dL POC Glucose (74-100) mg/dL Calcium 8.4 L (8.6-10.2) mg/dL Vancomycin Trough 15.5 H (<0.8) ug/mL Jose Results Last 24 Hours: Microbiology 06/09/20 15:39 Aerobic Blood Culture - Preliminary Blood - Venous NO GROWTH AFTER 1 DAY Anaerobic Blood Culture - Preliminary NO GROWTH AFTER 1 DAY 06/09/20 15:44 Aerobic Blood Culture - Preliminary Blood - Venous - Lab Draw NO GROWTH AFTER 1 DAY Anaerobic Blood Culture - Preliminary NO GROWTH AFTER 1 DAY Med Orders - Current: Current Medications Acetaminophen (Acetaminophen 500 Mg Tab) 500 mg PO Q6H [facility] Last Admin: 06/11/20 05:00 Dose: 500 mg Documented by: Hydrocodone Bitart/Acetaminophen (Acetaminophen/Hydrocodone 325-10 Mg Tab) 1 tab PO Q4H PRN PRN Reason: Pain (moderate 4-6) Last Admin: 06/10/20 22:28 Dose: 1 tab Documented by: Albuterol (Albuterol 0.083% 2.5 Mg/3 Ml Neb Soln) 2.5 mg NEB Q4H PRN PRN Reason: Shortness of Breath Last Admin: 06/10/20 11:00 Dose: 2.5 mg Documented by: Allopurinol (Allopurinol 100 Mg Tab) 100 mg PO DAILY [facility] Last Admin: 06/10/20 08:50 Dose: 100 mg Documented by: Amitriptyline HCl (Amitriptyline 25 Mg Tab) 50 mg PO BEDTIME [facility] Last Admin: 06/10/20 20:43 Dose: 50 mg Documented by: Atorvastatin Calcium (Atorvastatin 10 Mg Tab) 10 mg PO DAILY@1200 [facility] Last Admin: 06/10/20 11:29 Dose: 10 mg Documented by: Bupropion HCl (Bupropion 75 Mg Tab) 75 mg PO WITHDINNER [facility] Last Admin: 06/10/20 18:14 Dose: 75 mg Documented by: Bupropion HCl (Bupropion 75 Mg Tab) 150 mg PO DAILY [facility] Last Admin: 06/10/20 08:48 Dose: 150 mg Documented by: Dextrose/Water (50% Dextrose In Water 50 Ml Syringe) 50 ml IVPUSH ASDIRECTED PRN PRN Reason: Hypoglycemia Erythromycin (Erythromycin Base 0.5% Ophth Oint 3.5 Gm Tube) 0 gm EYEBOTH BEDTIME [facility] Last Admin: 06/10/20 20:42 Dose: Not Given Documented by: Fluticasone Propionate (Fluticasone Propionate Nasal [place] 16 Gm Bottle) 0 gm NASBOTH BID PRN PRN Reason: Allergies Gabapentin (Gabapentin 400 Mg Cap) 1,200 mg PO TID [facility] Last Admin: 06/10/20 20:43 Dose: 1,200 mg Documented by: Glucagon (Glucagon,Human Recombinant 1 Mg Vial) 1 mg IM ASDIRECTED PRN PRN Reason: Hypoglycemia Cefazolin Sodium/Dextrose (Ancef 2 Gm/50 Ml) 50 mls @ 100 mls/hr IV Q8H [facility] Last Admin: 06/11/20 08:14 Dose: 100 mls/hr Documented by: Vancomycin HCl (Vancomycin 1.5 Gm/300 Ml) 300 mls @ 200 mls/hr IV Q12H [facility] Last Admin: 06/11/20 05:39 Dose: 200 mls/hr Documented by: Insulin Human Lispro (Insulin Lispro 100 Unit/Ml 3 Ml Kwikpen) 0 unit SUBCUT TIDMEALS [facility]; Protocol Last Admin: 06/11/20 08:16 Dose: Not Given Documented by: Ketorolac Tromethamine (Ketorolac 30 Mg/Ml Sdv) 30 mg IVPUSH Q6H [facility] Stop: 06/15/20 10:37 Last Admin: 06/11/20 05:00 Dose: 30 mg Documented by: Losartan Potassium (Losartan 25 Mg Tab) 25 mg PO DAILY [facility] Last Admin: 06/10/20 08:49 Dose: 25 mg Documented by: Magnesium Oxide (Magnesium Oxide 400 Mg Tab) 400 mg PO DAILY@1200 [facility] Last Admin: 06/10/20 11:30 Dose: 400 mg Documented by: Mometasone Furoate/Formoterol Fumar (Formoterol/Mometasone 200-5 Mcg 8.8 Gm Inhaler) 2 puff IH BID [facility] Last Admin: 06/11/20 08:17 Dose: 2 puff Documented by: Montelukast Sodium (Montelukast 10 Mg Tab) 10 mg PO BEDTIME [facility] Last Admin: 06/10/20 20:43 Dose: 10 mg Documented by: Morphine Sulfate (Morphine 2 Mg/Ml Syringe) 2 mg IVPUSH Q2H PRN PRN Reason: Pain (severe 7-10) Last Admin: 06/10/20 17:46 Dose: 2 mg Documented by: Nifedipine (Nifedipine 30 Mg Tab.Er) 60 mg PO DAILY@1200 [facility] Last Admin: 06/10/20 11:30 Dose: 60 mg Documented by: Ondansetron HCl (Ondansetron 4 Mg Tab.Dis) 4 mg PO Q4H PRN PRN Reason: nausea, able to take PO Roflumilast (Roflumilast 500 Mcg Tab) 500 mcg PO DAILY [facility] Last Admin: 06/10/20 08:49 Dose: 500 mcg Documented by: Ropinirole HCl (Ropinirole 0.5 Mg Tab) 0.25 mg PO BEDTIME [facility] Last Admin: 06/10/20 20:43 Dose: 0.25 mg Documented by: Sodium Chloride (Sodium Chloride 0.9% 10 Ml Syringe) 10 ml FLUSH ASDIRECTED PRN PRN Reason: Keep Vein Open Last Admin: 06/11/20 07:20 Dose: 10 ml Documented by: Vancomycin HCl (Pharmacy To Dose - Vancomycin) 1 dose .XX ASDIRECTED [facility] Discontinued Medications Ibuprofen (Ibuprofen 200 Mg Tab) 200 mg PO Q6H [facility] Last Admin: 06/10/20 10:19 Dose: 200 mg Documented by: Iopamidol (Iopamidol 755 Mg/Ml 100 Ml Bottle) 100 ml IV . DIRECTED ONE Stop: 06/10/20 18:09 Last Admin: 06/10/20 18:18 Dose: 100 ml Documented by: Non-Formulary Medication (Canagliflozin [Invokana]) 100 mg PO ACBREAKFAST HERACLIO - Exam General: Alert, Oriented, Cooperative, Mild Distress (itching erythema in antec ubital fossa) Lungs: Clear to Auscultation, Normal Respiratory Effort. No: Wheezing Cardiovascular: Regular Rate, Regular Rhythm GI/Abdominal Exam: Normal Bowel Sounds, Soft, Non-Tender, No Distention Extremities: Joint Swelling (swelling more pronouced but erythema improved from skin markings), Arm Pain, Redness (Improved). No: Increased Warmth Wound/Incisions: No Drainage, Erythema Improving, Other (Lichenification of erythematous patch in antecubital fossa) - Patient Data Lab Results Last 24 hrs: Laboratory Results - last 24 hr 06/10/20 06/10/20 06/10/20 Range/Units 11:20 17:41 20:37 WBC (3.2-10.1) x10-3/uL RBC (3.90-5.90) x10(6)uL Hgb (12.9-17.7) g/dL Hct (38.3-50.1) % MCV (80.8-98.7) fL MCH (27.0-33.3) pg MCHC (28.7-35.3) g/dL RDW (12.4-15.0) % Plt Count (117-477) x10(3)uL MPV (6.7-11.0) fL Neut % (Auto) (40.3-71.8) % Lymph % (Auto) (15.8-45.3) % [place] % (Auto) (5.5-15.2) % Eos % (Auto) (0.1-6.8) % Baso % (Auto) (0.3-3.8) % Neut # (Auto) (1.7-6.9) x10-3/uL Lymph # (Auto) (0.5-4.5) x10-3/uL [place] # (Auto) (0.0-1.2) x10-3/uL Eos # (Auto) (0.0-0.6) x10-3/uL Baso # (Auto) (0.0-0.3) x10-3/uL Sodium (135-145) mmol/L Potassium (3.5-5.3) mmol/L Chloride (100-110) mmol/L Carbon Dioxide (21-32) mmol/L BUN (7-18) mg/dL Creatinine (0.70-1.30) mg/dL Est Cr Clr Drug Dosing mL/min Estimated GFR (MDRD) (>60) BUN/Creatinine Ratio (9-20) Glucose (80-116) mg/dL POC Glucose 172 H 145 H 172 H (74-100) mg/dL Calcium (8.6-10.2) mg/dL Vancomycin Trough (<0.8) ug/mL 06/11/20 06/11/20 Range/Units 05:00 05:00 WBC 7.4 (3.2-10.1) x10-3/uL RBC 4.16 (3.90-5.90) x10(6)uL Hgb 12.3 L (12.9-17.7) g/dL Hct 38.7 (38.3-50.1) % MCV 93.0 (80.8-98.7) fL MCH 29.6 (27.0-33.3) pg MCHC 31.8 (28.7-35.3) g/dL RDW 15.8 H (12.4-15.0) % Plt Count 191 (117-477) x10(3)uL MPV 9.4 (6.7-11.0) fL Neut % (Auto) 58.0 (40.3-71.8) % Lymph % (Auto) 25.3 (15.8-45.3) % [place] % (Auto) 9.3 (5.5-15.2) % Eos % (Auto) 6.8 (0.1-6.8) % Baso % (Auto) 0.6 (0.3-3.8) % Neut # (Auto) 4.3 (1.7-6.9) x10-3/uL Lymph # (Auto) 1.9 (0.5-4.5) x10-3/uL [place] # (Auto) 0.7 (0.0-1.2) x10-3/uL Eos # (Auto) 0.5 (0.0-0.6) x10-3/uL Baso # (Auto) 0.0 (0.0-0.3) x10-3/uL Sodium 137 (135-145) mmol/L Potassium 4.3 (3.5-5.3) mmol/L Chloride 103 (100-110) mmol/L Carbon Dioxide 28 (21-32) mmol/L BUN 18 (7-18) mg/dL Creatinine 0.9 (0.70-1.30) mg/dL Est Cr Clr Drug Dosing 91.80 mL/min Estimated GFR (MDRD) > 60 (>60) BUN/Creatinine Ratio 20.0 (9-20) Glucose 127 H (80-116) mg/dL POC Glucose (74-100) mg/dL Calcium 8.4 L (8.6-10.2) mg/dL Vancomycin Trough 15.5 H (<0.8) ug/mL Result Diagrams: 06/11/20 05:00 06/11/20 05:00 Jose Results Last 24 hrs: Microbiology 06/09/20 15:39 Aerobic Blood Culture - Preliminary Blood - Venous NO GROWTH AFTER 1 DAY Anaerobic Blood Culture - Preliminary NO GROWTH AFTER 1 DAY 06/09/20 15:44 Aerobic Blood Culture - Preliminary Blood - Venous - Lab Draw NO GROWTH AFTER 1 DAY Anaerobic Blood Culture - Preliminary NO GROWTH AFTER 1 DAY Sepsis Event Note - Evaluation Sepsis Screening Result: No Definite Risk - Focused Exam Vital Signs: Vital Signs Temp Pulse Resp BP Pulse Ox 06/11/20 05:00 18 06/11/20 01:00 97.9 F 77 18 130/70 93 L 06/10/20 21:00 97.4 F 76 18 128/67 93 L - Problem List & Annotations (1) Bursitis of left elbow SNOMED Code(s): 115528751 Code(s): M70.32 - OTHER BURSITIS OF ELBOW, LEFT ELBOW Status: Acute Current Visit: Yes Qualifiers: Elbow bursitis location: olecranon bursitis Qualified Code(s): M70.22 - Olecranon bursitis, left elbow (2) Cellulitis SNOMED Code(s): 247738358 Code(s): L03.90 - CELLULITIS, UNSPECIFIED Status: Acute Current Visit: Yes Qualifiers: Site of cellulitis: extremity Site of cellulitis of extremity: upper extremity Laterality: left Qualified Code(s): L03.114 - Cellulitis of left upper limb (3) COPD (chronic obstructive pulmonary disease) SNOMED Code(s): 92012915 Code(s): J44.9 - CHRONIC OBSTRUCTIVE PULMONARY DISEASE, UNSPECIFIED Status: Chronic Current Visit: Yes Qualifiers: COPD type: unspecified COPD Qualified Code(s): J44.9 - Chronic obstructive pulmonary disease, unspecified (4) Type 2 diabetes mellitus SNOMED Code(s): 68535068 Code(s): E11.9 - TYPE 2 DIABETES MELLITUS WITHOUT COMPLICATIONS Status: Chronic Current Visit: Yes Qualifiers: Diabetes mellitus buttermaker helper insulin use: without buttermaker helper use Diabetes mellitus complication status: with other specified complication Qualified Code (s): E11.69 - Type 2 diabetes mellitus with other specified complication Annotation/Comment:: (5) Dermatitis SNOMED Code(s): 521122044 Code(s): L30.9 - DERMATITIS, UNSPECIFIED Status: Acute Current Visit: Yes Annotation/Comment:: antecubital fossa - Problem List Review Problem List Initiated/Reviewed/Updated: Yes - My Orders Last 24 Hours: My Active Orders 06/10/20 09:00 Losartan [Cozaar] 25 mg PO DAILY Roflumilast [Daliresp] 500 mcg PO DAILY allopurinoL [Zyloprim] 100 mg PO DAILY buPROPion [Wellbutrin] 150 mg PO DAILY 06/10/20 10:19 Communication Order [RC] Q106/10/20 10:45 Ketorolac [Toradol] 30 mg IVPUSH Q6H 06/10/20 12:00 Magnesium Oxide 400 mg PO DAILY@1200 NIFEdipine [Procardia XL] 60 mg PO DAILY@1200 atorvaSTATin [Lipitor] 10 mg PO DAILY@1200 06/10/20 13:05 RT Incentive Spirometry [RC] Q1H06/10/20 17:23 Acetaminophen/HYDROcodone [[place] 325-10 MG] 1 tab PO Q4H PRN 06/10/20 17:24 Upper Extremity w Cont Lt [CT] Routine Morphine 2 mg IVPUSH Q2H PRN 06/11/20 Breakfast NPO Now [Nothing per Oral Now Diet] [DIET] 06/11/20 08:08 Consult to Physician [CONS] Routine 06/11/20 08:09 Notify Provider Consults [RC] ASDIRECTED 06/12/20 06:00 BASIC METABOLIC PANEL,BMP [CHEM] Routine CBC WITH AUTO DIFF [HEME] Routine 06/13/20 17:00 VANCOMYCIN TROUGH [CHEM] Timed - Plan Plan:: 1. Bursitis/cellulitis: Day 3, Ancef 2 gram IV q8h and Vancomycin per pharmacy started. CBC & BMP within normal range. Vanco trough 15.5. BC no growth to date. Consult Dr Buckley, bursitis has worsened, measures 8 x [address] left elbow on preliminary report. Will go to OR today at 10 am for drainage. 2. COPD: Flutter valve, Dulera & Albuterol nebs as needed. 3. DM: Accuchecks ac & hs, Humalog medium dose sliding scale. Hold Metformin & Victoza & Glimepiride. 4. NPO until after procedure, hold all oral medications, will add MiraLax and Dulcolax for constipation once back from procedure. 5. Dermatitis: triamcinolone 0.1% bid to left antecubital fossa max 2 weeks.
[2020-06-11] MEDS: Albuterol 0.083% 2.5 MG/3 ML Neb Soln NEB PRN (09:50)
[2020-06-11] MEDS ORDERED: Bupivacaine 0.25% 30 ML SDV INJECT ONE (10:29)
[2020-06-11] MEDS ORDERED: Lidocaine 1% with EPINEPHrine 1:100,000 20 ML MDV INJECT ONE (10:29)
--- NOTE | 2020-06-11 10:43 | PCM.OPNOTE ---
- General Post-Op/Procedure Note Date of Surgery/Procedure: 06/11/20 Operative Procedure(s): I & D Left Olecranom Bursitis Findings: 25 ml Yellowish serous fluid Pre Op Diagnosis: L Olecranon Bursitis Post-Op Diagnosis: Same Anesthesia Technique: Local, MAC Primary Surgeon: Fareed Buckley Anesthesia Provider: Nnamdi MONTANEZ in mLs: 0 Complications: None Condition: Good
[2020-06-11] MEDS ORDERED: Propofol 200 MG/20 ML SDV IV ONE (10:56)
[2020-06-11] MEDS ORDERED: Ondansetron 4 MG/2 ML SDV IVPUSH ONE (10:56)
[2020-06-11] MEDS ORDERED: Midazolam 1 MG/ML 2 ML SDV IV ONE (10:56)
[2020-06-11] MEDS ORDERED: fentaNYL 100 MCG/2 ML SDV IV ONE (10:56)
[2020-06-11] MEDS: Gabapentin 400 MG Cap PO SCH ×3 (12:01→20:42)
[2020-06-11] MEDS: Losartan 25 MG Tab PO SCH (12:01)
[2020-06-11] MEDS: Roflumilast 500 MCG Tab PO SCH (12:02)
[2020-06-11] MEDS: Allopurinol 100 MG Tab PO SCH (12:03)
[2020-06-11] MEDS: Triamcinolone Acetonide 0.1% Crm 15 GM Tube TOP SCH ×2 (12:03→20:42)
[2020-06-11] MEDS: atorvaSTATin 10 MG Tab PO SCH (12:04)
[2020-06-11] MEDS: Magnesium Oxide 400 MG Tab PO SCH (12:05)
[2020-06-11] MEDS: NIFEdipine 30 MG Tab.ER PO SCH (12:05)
[2020-06-11] MEDS ORDERED: Albuterol 0.083% 2.5 MG/3 ML Neb Soln NEB ONE (12:18)
[2020-06-11] MEDS: Polyethylene Glycol 3350 Powder 17 GM Packet PO SCH (13:04)
[2020-06-11] MEDS: Acetaminophen/HYDROcodone 325-10 MG Tab PO PRN ×2 (13:06→22:08)
[2020-06-11] MEDS: Bisacodyl 5 MG Tab PO PRN (14:00)
[2020-06-11] MEDS ORDERED: Ketorolac 30 MG/ML SDV IVPUSH PRN (16:53)
[2020-06-11] MEDS: rOPINIRole 0.5 MG Tab PO SCH (20:42)
[2020-06-11] MEDS: Amitriptyline 25 MG Tab PO SCH (20:42)
[2020-06-11] MEDS: Erythromycin Base 0.5% Ophth Oint 3.5 GM Tube EYEBOTH SCH (20:43)
[2020-06-11] MEDS: Montelukast 10 MG Tab PO SCH (20:43)
[2020-06-12] MEDS: Morphine 2 MG/ML SYRINGE IVPUSH PRN (01:12)
[2020-06-12] MEDS: VANCOmycin 1.5 GM/300 ML 300 ML IV SCH ×2 (05:01→17:15)
[2020-06-12] MEDS: Acetaminophen/HYDROcodone 325-10 MG Tab PO PRN ×3 (05:02→17:29)
[2020-06-12] MEDS: Acetaminophen 500 MG Tab PO SCH ×4 (05:07→21:48)
--- NOTE | 2020-06-12 08:16 | OR ---
DATE OF OPERATION: 06/11/2020 SURGEON: Fareed Buckley MD PREOPERATIVE DIAGNOSIS: Left olecranon bursitis. POSTOPERATIVE DIAGNOSIS: Left olecranon bursitis. PROCEDURE: Incision and drainage of left olecranon bursitis. ANESTHESIA: Local MAC. HISTORY: This 60-year-old gentleman has been dealing with left olecranon bursitis for approximately 10 days. Initially, this was treated outpatient with aspiration and oral antibiotics without improvement. Therefore, he was admitted to the hospital two days ago for IV antibiotics. He continues to have pain and swelling. CT scan shows significant fluid collection with evidence of infection. Therefore, I recommend incision and drainage with placement of drain. Risks and complications were reviewed with the patient and consent obtained. PROCEDURE IN DETAIL: The patient was brought to the operating room, where IV sedation was administered. The left elbow and surrounding region were prepped with ChloraPrep and draped sterilely. A 50:50 mixture of 1% Lidocaine with epinephrine and 0.25% Marcaine was used for local anesthesia. I first aspirated 10 mL of clear yellowish serous fluid and sent this for culture. A 1 cm incision was then made. Much more fluid came out and I estimated approximately 25 mL of fluid was present. I did probe the entire bursa with a hemostat and no loculated areas remained. A Bethany drain was then placed into the bursa and secured with 4-0 Prolene. A Kerlix gauze and Kerlix roll were then applied for the dressing and secured with tape. The patient tolerated the procedure well. Blood loss, none. He returned to his room in stable condition. /[id number] VIRGIL/CATALINA
[2020-06-12] MEDS: Albuterol 0.083% 2.5 MG/3 ML Neb Soln NEB PRN ×2 (08:42→13:55)
[2020-06-12] MEDS: Insulin Lispro 100 Unit/ML 3 ML KwikPen SUBCUT SCH ×3 (08:42→17:29)
[2020-06-12] MEDS: Polyethylene Glycol 3350 Powder 17 GM Packet PO SCH (08:43)
[2020-06-12] MEDS: Gabapentin 400 MG Cap PO SCH ×3 (08:43→21:00)
[2020-06-12] MEDS: Triamcinolone Acetonide 0.1% Crm 15 GM Tube TOP SCH ×2 (08:43→21:12)
[2020-06-12] MEDS: Formoterol/Mometasone 200-5 MCG 8.8 GM Inhaler IH SCH ×2 (08:43→20:58)
[2020-06-12] MEDS: Losartan 25 MG Tab PO SCH (08:44)
[2020-06-12] MEDS: Roflumilast 500 MCG Tab PO SCH (08:44)
[2020-06-12] MEDS: Allopurinol 100 MG Tab PO SCH (08:44)
[2020-06-12] MEDS: Ibuprofen 200 MG Tab PO SCH ×3 (09:53→21:47)
--- NOTE | 2020-06-12 10:53 | PCM.PN ---
- General Info Date of Service: 06/12/20 Subjective Update: Justin states his arm feels better, removed large clot around drain late yesterday afternoon, secured dressing with more compression. States the itching is better to inside of his arm. Breathing is better, had some hypoxia after coming back from conscious sedation yesterday, weaned off oxygen and on room air this morning. Has not had a bowel movement, been using Hydrocodone regularly, has not used Toradol or morphine since friday/friday. - Patient Data Vitals - Most Recent: Last Vital Signs Temp 98.1 F 06/12/20 01:00 Pulse 72 06/12/20 01:00 Resp 18 06/12/20 05:00 BP 112/61 06/12/20 08:44 Pulse Ox 92 L 06/12/20 01:00 Weight - Most Recent: 239 lb Lab Results Last 24 Hours: Laboratory Results - last 24 hr 06/11/20 06/11/20 06/11/20 Range/Units 11:19 17:07 20:34 WBC (3.2-10.1) x10-3/uL RBC (3.90-5.90) x10(6)uL Hgb (12.9-17.7) g/dL Hct (38.3-50.1) % MCV (80.8-98.7) fL MCH (27.0-33.3) pg MCHC (28.7-35.3) g/dL RDW (12.4-15.0) % Plt Count (117-477) x10(3)uL MPV (6.7-11.0) fL Neut % (Auto) (40.3-71.8) % Lymph % (Auto) (15.8-45.3) % [place] % (Auto) (5.5-15.2) % Eos % (Auto) (0.1-6.8) % Baso % (Auto) (0.3-3.8) % Neut # (Auto) (1.7-6.9) x10-3/uL Lymph # (Auto) (0.5-4.5) x10-3/uL [place] # (Auto) (0.0-1.2) x10-3/uL Eos # (Auto) (0.0-0.6) x10-3/uL Baso # (Auto) (0.0-0.3) x10-3/uL Sodium (135-145) mmol/L Potassium (3.5-5.3) mmol/L Chloride (100-110) mmol/L Carbon Dioxide (21-32) mmol/L BUN (7-18) mg/dL Creatinine (0.70-1.30) mg/dL Est Cr Clr Drug Dosing mL/min Estimated GFR (MDRD) (>60) BUN/Creatinine Ratio (9-20) Glucose (80-116) mg/dL POC Glucose 118 H 122 H 151 H (74-100) mg/dL Calcium (8.6-10.2) mg/dL 06/12/20 06/12/20 Range/Units 06:30 06:30 WBC 6.9 (3.2-10.1) x10-3/uL RBC 4.05 (3.90-5.90) x10(6)uL Hgb 12.0 L (12.9-17.7) g/dL Hct 37.9 L (38.3-50.1) % MCV 93.5 (80.8-98.7) fL MCH 29.5 (27.0-33.3) pg MCHC 31.5 (28.7-35.3) g/dL RDW 15.3 H (12.4-15.0) % Plt Count 178 (117-477) x10(3)uL MPV 9.3 (6.7-11.0) fL Neut % (Auto) 51.6 (40.3-71.8) % Lymph % (Auto) 28.9 (15.8-45.3) % [place] % (Auto) 10.5 (5.5-15.2) % Eos % (Auto) 8.4 H (0.1-6.8) % Baso % (Auto) 0.6 (0.3-3.8) % Neut # (Auto) 3.6 (1.7-6.9) x10-3/uL Lymph # (Auto) 2.0 (0.5-4.5) x10-3/uL [place] # (Auto) 0.7 (0.0-1.2) x10-3/uL Eos # (Auto) 0.6 (0.0-0.6) x10-3/uL Baso # (Auto) 0.0 (0.0-0.3) x10-3/uL Sodium 138 (135-145) mmol/L Potassium 4.2 (3.5-5.3) mmol/L Chloride 102 (100-110) mmol/L Carbon Dioxide 30 (21-32) mmol/L BUN 14 (7-18) mg/dL Creatinine 0.8 (0.70-1.30) mg/dL Est Cr Clr Drug Dosing 103.28 mL/min Estimated GFR (MDRD) > 60 (>60) BUN/Creatinine Ratio 17.5 (9-20) Glucose 111 (80-116) mg/dL POC Glucose (74-100) mg/dL Calcium 8.7 (8.6-10.2) mg/dL Jose Results Last 24 Hours: Microbiology 06/09/20 15:44 Aerobic Blood Culture - Preliminary Blood - Venous - Lab Draw NO GROWTH AFTER 2 DAYS Anaerobic Blood Culture - Preliminary NO GROWTH AFTER 2 DAYS 06/09/20 15:39 Aerobic Blood Culture - Preliminary Blood - Venous NO GROWTH AFTER 2 DAYS Anaerobic Blood Culture - Preliminary NO GROWTH AFTER 2 DAYS 06/11/20 10:35 Gram Stain - Preliminary Elbow, Left Routine Culture - Preliminary 06/11/20 10:35 Anaerobic Culture - Preliminary Elbow, Left Med Orders - Current: Current Medications Acetaminophen (Acetaminophen 500 Mg Tab) 500 mg PO Q6H [facility] Last Admin: 06/12/20 09:53 Dose: 500 mg Documented by: Hydrocodone Bitart/Acetaminophen (Acetaminophen/Hydrocodone 325-10 Mg Tab) 1 tab PO Q4H PRN PRN Reason: Pain (moderate 4-6) Last Admin: 06/12/20 09:53 Dose: 1 tab Documented by: Albuterol (Albuterol 0.083% 2.5 Mg/3 Ml Neb Soln) 2.5 mg NEB Q4H PRN PRN Reason: Shortness of Breath Last Admin: 06/12/20 08:42 Dose: 2.5 mg Documented by: Allopurinol (Allopurinol 100 Mg Tab) 100 mg PO DAILY [facility] Last Admin: 06/12/20 08:44 Dose: 100 mg Documented by: Amitriptyline HCl (Amitriptyline 25 Mg Tab) 50 mg PO BEDTIME [facility] Last Admin: 06/11/20 20:42 Dose: 50 mg Documented by: Atorvastatin Calcium (Atorvastatin 10 Mg Tab) 10 mg PO DAILY@1200 [facility] Last Admin: 06/11/20 12:04 Dose: 10 mg Documented by: Bisacodyl (Bisacodyl 5 Mg Tab) 5 mg PO DAILY PRN PRN Reason: Constipation Last Admin: 06/11/20 14:00 Dose: 5 mg Documented by: Bupropion HCl (Bupropion 75 Mg Tab) 75 mg PO WITHDINNER [facility] Last Admin: 06/11/20 17:09 Dose: 75 mg Documented by: Bupropion HCl (Bupropion 75 Mg Tab) 150 mg PO DAILY [facility] Last Admin: 06/12/20 08:44 Dose: 150 mg Documented by: Dextrose/Water (50% Dextrose In Water 50 Ml Syringe) 50 ml IVPUSH ASDIRECTED PRN PRN Reason: Hypoglycemia Erythromycin (Erythromycin Base 0.5% Ophth Oint 3.5 Gm Tube) 0 gm EYEBOTH BEDTIME [facility] Last Admin: 06/11/20 20:43 Dose: Not Given Documented by: Fluticasone Propionate (Fluticasone Propionate Nasal [place] 16 Gm Bottle) 0 gm NASBOTH BID PRN PRN Reason: Allergies Gabapentin (Gabapentin 400 Mg Cap) 1,200 mg PO TID [facility] Last Admin: 06/12/20 08:43 Dose: 1,200 mg Documented by: Glucagon (Glucagon,Human Recombinant 1 Mg Vial) 1 mg IM ASDIRECTED PRN PRN Reason: Hypoglycemia Cefazolin Sodium/Dextrose (Ancef 2 Gm/50 Ml) 50 mls @ 100 mls/hr IV Q8H [facility] Last Admin: 06/12/20 08:51 Dose: 100 mls/hr Documented by: Vancomycin HCl (Vancomycin 1.5 Gm/300 Ml) 300 mls @ 200 mls/hr IV Q12H [facility] Last Admin: 06/12/20 05:01 Dose: 200 mls/hr Documented by: Ibuprofen (Ibuprofen 200 Mg Tab) 200 mg PO Q6H [facility] Last Admin: 06/12/20 09:53 Dose: 200 mg Documented by: Insulin Human Lispro (Insulin Lispro 100 Unit/Ml 3 Ml Kwikpen) 0 unit SUBCUT TIDMEALS [facility]; Protocol Last Admin: 06/12/20 08:42 Dose: Not Given Documented by: Losartan Potassium (Losartan 25 Mg Tab) 25 mg PO DAILY [facility] Last Admin: 06/12/20 08:44 Dose: 25 mg Documented by: Magnesium Oxide (Magnesium Oxide 400 Mg Tab) 400 mg PO DAILY@1200 [facility] Last Admin: 06/11/20 12:05 Dose: 400 mg Documented by: Mometasone Furoate/Formoterol Fumar (Formoterol/Mometasone 200-5 Mcg 8.8 Gm Inhaler) 2 puff IH BID [facility] Last Admin: 06/12/20 08:43 Dose: 2 puff Documented by: Montelukast Sodium (Montelukast 10 Mg Tab) 10 mg PO BEDTIME [facility] Last Admin: 06/11/20 20:43 Dose: 10 mg Documented by: Nifedipine (Nifedipine 30 Mg Tab.Er) 60 mg PO DAILY@1200 [facility] Last Admin: 06/11/20 12:05 Dose: 60 mg Documented by: Ondansetron HCl (Ondansetron 4 Mg Tab.Dis) 4 mg PO Q4H PRN PRN Reason: nausea, able to take PO Polyethylene Glycol (Polyethylene Glycol 3350 Powder 17 Gm Packet) 17 gm PO DAILY [facility] Last Admin: 06/12/20 08:43 Dose: 17 gm Documented by: Roflumilast (Roflumilast 500 Mcg Tab) 500 mcg PO DAILY [facility] Last Admin: 06/12/20 08:44 Dose: 500 mcg Documented by: Ropinirole HCl (Ropinirole 0.5 Mg Tab) 0.25 mg PO BEDTIME [facility] Last Admin: 06/11/20 20:42 Dose: 0.25 mg Documented by: Senna/Docusate Sodium (Docusate Sodium/Sennosides 50-8.6 Mg Tab) 1 tab PO BID PRN PRN Reason: Constipation Last Admin: 06/11/20 13:06 Dose: 1 tab Documented by: Sodium Chloride (Sodium Chloride 0.9% 10 Ml Syringe) 10 ml FLUSH ASDIRECTED PRN PRN Reason: Keep Vein Open Last Admin: 06/11/20 07:20 Dose: 10 ml Documented by: Triamcinolone Acetonide (Triamcinolone Acetonide 0.1% Crm 15 Gm Tube) 0 gm TOP BID [facility] Stop: 06/24/20 21:01 Last Admin: 06/12/20 08:43 Dose: 1 each Documented by: Vancomycin HCl (Pharmacy To Dose - Vancomycin) 1 dose .XX ASDIRECTED HERACLIO Discontinued Medications Albuterol (Albuterol 0.083% 2.5 Mg/3 Ml Neb Soln) 2.5 mg NEB ONETIME ONE Stop: 06/11/20 12:19 Last Admin: 06/11/20 12:25 Dose: 2.5 mg Documented by: Bupivacaine HCl (Bupivacaine 0.25% 30 Ml Sdv) 10 ml INJECT .STK-MED ONE Stop: 06/11/20 10:30 Last Admin: 06/11/20 10:29 Dose: 10 ml Documented by: Ibuprofen (Ibuprofen 200 Mg Tab) 200 mg PO Q6H [facility] Last Admin: 06/10/20 10:19 Dose: 200 mg Documented by: Iopamidol (Iopamidol 755 Mg/Ml 100 Ml Bottle) 100 ml IV . DIRECTED ONE Stop: 06/10/20 18:09 Last Admin: 06/10/20 18:18 Dose: 100 ml Documented by: Ketorolac Tromethamine (Ketorolac 30 Mg/Ml Sdv) 30 mg IVPUSH Q6H [facility] Stop: 06/15/20 10:37 Last Admin: 06/11/20 16:19 Dose: 30 mg Documented by: Ketorolac Tromethamine (Ketorolac 30 Mg/Ml Sdv) 30 mg IVPUSH Q6H PRN PRN Reason: Pain (moderate 4-6) Stop: 06/15/20 10:37 Lidocaine/Epinephrine (Lidocaine 1% With Epinephrine 1:100,000 20 Ml Mdv) 10 ml INJECT .STK-MED ONE Stop: 06/11/20 10:30 Last Admin: 06/11/20 10:29 Dose: 10 ml Documented by: Morphine Sulfate (Morphine 2 Mg/Ml Syringe) 2 mg IVPUSH Q2H PRN PRN Reason: Pain (severe 7-10) Last Admin: 06/12/20 01:12 Dose: 2 mg Documented by: Non-Formulary Medication (Canagliflozin [Invokana]) 100 mg PO ACBREAKFAST HERACLIO - Exam Quality Assessment: No: Supplemental Oxygen General: Alert, Oriented, Cooperative, No Acute Distress Lungs: Clear to Auscultation, Normal Respiratory Effort (poor air entry). No: Crackles, Wheezing Cardiovascular: Regular Rate, Regular Rhythm GI/Abdominal Exam: Normal Bowel Sounds, Soft, Non-Tender, No Distention Extremities: No Pedal Edema, Other (dressing in place to left elbow.) - Patient Data Lab Results Last 24 hrs: Laboratory Results - last 24 hr 06/11/20 06/11/20 06/11/20 Range/Units 11:19 17:07 20:34 WBC (3.2-10.1) x10-3/uL RBC (3.90-5.90) x10(6)uL Hgb (12.9-17.7) g/dL Hct (38.3-50.1) % MCV (80.8-98.7) fL MCH (27.0-33.3) pg MCHC (28.7-35.3) g/dL RDW (12.4-15.0) % Plt Count (117-477) x10(3)uL MPV (6.7-11.0) fL Neut % (Auto) (40.3-71.8) % Lymph % (Auto) (15.8-45.3) % [place] % (Auto) (5.5-15.2) % Eos % (Auto) (0.1-6.8) % Baso % (Auto) (0.3-3.8) % Neut # (Auto) (1.7-6.9) x10-3/uL Lymph # (Auto) (0.5-4.5) x10-3/uL [place] # (Auto) (0.0-1.2) x10-3/uL Eos # (Auto) (0.0-0.6) x10-3/uL Baso # (Auto) (0.0-0.3) x10-3/uL Sodium (135-145) mmol/L Potassium (3.5-5.3) mmol/L Chloride (100-110) mmol/L Carbon Dioxide (21-32) mmol/L BUN (7-18) mg/dL Creatinine (0.70-1.30) mg/dL Est Cr Clr Drug Dosing mL/min Estimated GFR (MDRD) (>60) BUN/Creatinine Ratio (9-20) Glucose (80-116) mg/dL POC Glucose 118 H 122 H 151 H (74-100) mg/dL Calcium (8.6-10.2) mg/dL 03/22/21 03/22/21 Range/Units 06:30 06:30 WBC 6.9 (3.2-10.1) x10-3/uL RBC 4.05 (3.90-5.90) x10(6)uL Hgb 12.0 L (12.9-17.7) g/dL Hct 37.9 L (38.3-50.1) % MCV 93.5 (80.8-98.7) fL MCH 29.5 (27.0-33.3) pg MCHC 31.5 (28.7-35.3) g/dL RDW 15.3 H (12.4-15.0) % Plt Count 178 (117-477) x10(3)uL MPV 9.3 (6.7-11.0) fL Neut % (Auto) 51.6 (40.3-71.8) % Lymph % (Auto) 28.9 (15.8-45.3) % [place] % (Auto) 10.5 (5.5-15.2) % Eos % (Auto) 8.4 H (0.1-6.8) % Baso % (Auto) 0.6 (0.3-3.8) % Neut # (Auto) 3.6 (1.7-6.9) x10-3/uL Lymph # (Auto) 2.0 (0.5-4.5) x10-3/uL [place] # (Auto) 0.7 (0.0-1.2) x10-3/uL Eos # (Auto) 0.6 (0.0-0.6) x10-3/uL Baso # (Auto) 0.0 (0.0-0.3) x10-3/uL Sodium 138 (135-145) mmol/L Potassium 4.2 (3.5-5.3) mmol/L Chloride 102 (100-110) mmol/L Carbon Dioxide 30 (21-32) mmol/L BUN 14 (7-18) mg/dL Creatinine 0.8 (0.70-1.30) mg/dL Est Cr Clr Drug Dosing 103.28 mL/min Estimated GFR (MDRD) > 60 (>60) BUN/Creatinine Ratio 17.5 (9-20) Glucose 111 (80-116) mg/dL POC Glucose (74-100) mg/dL Calcium 8.7 (8.6-10.2) mg/dL Result Diagrams: 06/12/20 06:30 06/12/20 06:30 Jose Results Last 24 hrs: Microbiology 06/09/20 15:44 Aerobic Blood Culture - Preliminary Blood - Venous - Lab Draw NO GROWTH AFTER 2 DAYS Anaerobic Blood Culture - Preliminary NO GROWTH AFTER 2 DAYS 06/09/20 15:39 Aerobic Blood Culture - Preliminary Blood - Venous NO GROWTH AFTER 2 DAYS Anaerobic Blood Culture - Preliminary NO GROWTH AFTER 2 DAYS 06/11/20 10:35 Gram Stain - Preliminary Elbow, Left Routine Culture - Preliminary 06/11/20 10:35 Anaerobic Culture - Preliminary Elbow, Left Sepsis Event Note - Evaluation Sepsis Screening Result: No Definite Risk - Focused Exam Vital Signs: Vital Signs Temp Pulse Resp BP BP Pulse Ox 06/12/20 08:44 112/61 06/12/20 05:00 18 06/12/20 01:00 98.1 F 72 18 106/56 L 92 L - Problem List & Annotations (1) Bursitis of left elbow SNOMED Code(s): 002078109 Code(s): M70.32 - OTHER BURSITIS OF ELBOW, LEFT ELBOW Status: Acute Current Visit: Yes Qualifiers: Elbow bursitis location: olecranon bursitis Qualified Code(s): M70.22 - Olecranon bursitis, left elbow (2) Cellulitis SNOMED Code(s): 321448814 Code(s): L03.90 - CELLULITIS, UNSPECIFIED Status: Acute Current Visit: Yes Qualifiers: Site of cellulitis: extremity Site of cellulitis of extremity: upper extremity Laterality: left Qualified Code(s): L03.114 - Cellulitis of left upper limb (3) COPD (chronic obstructive pulmonary disease) SNOMED Code(s): 83483841 Code(s): J44.9 - CHRONIC OBSTRUCTIVE PULMONARY DISEASE, UNSPECIFIED Status: Chronic Current Visit: Yes Qualifiers: COPD type: unspecified COPD Qualified Code(s): J44.9 - Chronic obstructive pulmonary disease, unspecified (4) Type 2 diabetes mellitus SNOMED Code(s): 73752835 Code(s): E11.9 - TYPE 2 DIABETES MELLITUS WITHOUT COMPLICATIONS Status: Chronic Current Visit: Yes Qualifiers: Diabetes mellitus rodent exterminator insulin use: without rodent exterminator use Diabetes mellitus complication status: with other specified complication Qualified Code(s): E11.69 - Type 2 diabetes mellitus with other specified complication Annotation/Comment:: (5) Dermatitis SNOMED Code(s): 110896088 Code(s): L30.9 - DERMATITIS, UNSPECIFIED Status: Acute Current Visit: Yes Annotation/Comment:: antecubital fossa - Problem List Review Problem List Initiated/Reviewed/Updated: Yes - My Orders Last 24 Hours: My Active Orders 06/11/20 Lunch Consistent Carbohydrate Diet [DIET] 06/11/20 14:00 bisacodyL [Dulcolax] 5 mg PO DAILY PRN polyethylene glycoL 3350 [MiraLAX] 17 gm PO DAILY 06/11/20 21:00 Docusate Sodium/Sennosides [Senna Plus] 1 tab PO BID PRN 06/12/20 10:30 Ibuprofen [Motrin] 200 mg PO Q6H 06/13/20 17:00 VANCOMYCIN TROUGH [CHEM] Timed - Plan Plan:: 1. Bursitis/cellulitis: Day 4 tonight, Ancef 2 gram IV q8h and Vancomycin per pharmacy started. CBC & BMP within normal range. Vanco trough 15.5, next trough tomorrow. BC no growth to date. Culture from draining bursa yesterday, sent to [facility], pending possible preliminary tomorrow. Possible discharge may Fris am, as he would have 5 days of IV antibiotics, then would go home with 5 more days of oral antibiotics. Dr Buckley plans to recheck wound tomorrow. 2. COPD: Flutter valve, Dulera & Albuterol nebs as needed. 3. DM: Accuchecks ac & hs, Humalog medium dose sliding scale. Hold Metformin & Victoza & Glimepiride. 4. Constipation: consistent carb diet. MiraLax and Dulcolax for constipation. 5. Dermatitis: triamcinolone 0.1% bid to left antecubital fossa max 2 weeks.
[2020-06-12] MEDS: NIFEdipine 30 MG Tab.ER PO SCH (12:05)
[2020-06-12] MEDS: atorvaSTATin 10 MG Tab PO SCH (12:05)
[2020-06-12] MEDS: Magnesium Oxide 400 MG Tab PO SCH (12:09)
[2020-06-12] MEDS: Montelukast 10 MG Tab PO SCH (20:58)
[2020-06-12] MEDS: Amitriptyline 25 MG Tab PO SCH (20:58)
[2020-06-12] MEDS: rOPINIRole 0.5 MG Tab PO SCH (20:58)
[2020-06-12] MEDS: Erythromycin Base 0.5% Ophth Oint 3.5 GM Tube EYEBOTH SCH (21:09)
[2020-06-13] MEDS: Acetaminophen/HYDROcodone 325-10 MG Tab PO PRN ×3 (02:42→21:37)
[2020-06-13] MEDS: Ibuprofen 200 MG Tab PO SCH ×2 (04:50→10:02)
[2020-06-13] MEDS: Acetaminophen 500 MG Tab PO SCH ×2 (04:50→10:01)
[2020-06-13] MEDS: VANCOmycin 1.5 GM/300 ML 300 ML IV SCH ×2 (04:52→18:07)
[2020-06-13] MEDS: Insulin Lispro 100 Unit/ML 3 ML KwikPen SUBCUT SCH ×3 (08:57→18:09)
--- NOTE | 2020-06-13 09:03 | PCM.PN ---
- General Info Date of Service: 06/13/20 Functional Status: Reports: Pain Controlled - Review of Systems General: Reports: No Symptoms. Denies: Fever Musculoskeletal: Reports: No Symptoms, Arm Pain (is gone and able to move arm with full ROM) - Patient Data Vitals - Most Recent: Last Vital Signs Temp 97.9 F 06/13/20 01:00 Pulse 70 06/13/20 01:00 Resp 18 06/13/20 01:00 BP 120/65 06/13/20 01:00 Pulse Ox 93 L 06/13/20 01:00 Weight - Most Recent: 108.409 kg Lab Results Last 24 Hours: Laboratory Results - last 24 hr 06/12/20 06/12/20 06/12/20 Range/Units 11:10 16:49 21:04 POC Glucose 151 H 129 H 114 H (74-100) mg/dL 06/13/20 Range/Units 06:31 POC Glucose 119 H (74-100) mg/dL Jose Results Last 24 Hours: Microbiology 06/09/20 15:39 Aerobic Blood Culture - Preliminary Blood - Venous NO GROWTH AFTER 3 DAYS Anaerobic Blood Culture - Preliminary NO GROWTH AFTER 3 DAYS 06/09/20 15:44 Aerobic Blood Culture - Preliminary Blood - Venous - Lab Draw NO GROWTH AFTER 3 DAYS Anaerobic Blood Culture - Preliminary NO GROWTH AFTER 3 DAYS Med Orders - Current: Current Medications Acetaminophen (Acetaminophen 500 Mg Tab) 500 mg PO Q6H [facility] Last Admin: 06/13/20 04:50 Dose: 500 mg Documented by: Hydrocodone Bitart/Acetaminophen (Acetaminophen/Hydrocodone 325-10 Mg Tab) 1 tab PO Q4H PRN PRN Reason: Pain (moderate 4-6) Last Admin: 06/13/20 02:42 Dose: 1 tab Documented by: Albuterol (Albuterol 0.083% 2.5 Mg/3 Ml Neb Soln) 2.5 mg NEB Q4H PRN PRN Reason: Shortness of Breath Last Admin: 06/12/20 13:55 Dose: 2.5 mg Documented by: Allopurinol (Allopurinol 100 Mg Tab) 100 mg PO DAILY [facility] Last Admin: 06/12/20 08:44 Dose: 100 mg Documented by: Amitriptyline HCl (Amitriptyline 25 Mg Tab) 50 mg PO BEDTIME [facility] Last Admin: 06/12/20 20:58 Dose: 50 mg Documented by: Atorvastatin Calcium (Atorvastatin 10 Mg Tab) 10 mg PO DAILY@1200 [facility] Last Admin: 06/12/20 12:05 Dose: 10 mg Documented by: Bisacodyl (Bisacodyl 5 Mg Tab) 5 mg PO DAILY PRN PRN Reason: Constipation Last Admin: 06/11/20 14:00 Dose: 5 mg Documented by: Bupropion HCl (Bupropion 75 Mg Tab) 75 mg PO WITHDINNER [facility] Last Admin: 06/12/20 17:05 Dose: 75 mg Documented by: Bupropion HCl (Bupropion 75 Mg Tab) 150 mg PO DAILY [facility] Last Admin: 06/12/20 08:44 Dose: 150 mg Documented by: Dextrose/Water (50% Dextrose In Water 50 Ml Syringe) 50 ml IVPUSH ASDIRECTED PRN PRN Reason: Hypoglycemia Erythromycin (Erythromycin Base 0.5% Ophth Oint 3.5 Gm Tube) 0 gm EYEBOTH BEDTIME [facility] Last Admin: 06/12/20 21:09 Dose: Not Given Documented by: Fluticasone Propionate (Fluticasone Propionate Nasal [place] 16 Gm Bottle) 0 gm NASBOTH BID PRN PRN Reason: Allergies Gabapentin (Gabapentin 400 Mg Cap) 1,200 mg PO TID [facility] Last Admin: 06/12/20 21:00 Dose: 1,200 mg Documented by: Glucagon (Glucagon,Human Recombinant 1 Mg Vial) 1 mg IM ASDIRECTED PRN PRN Reason: Hypoglycemia Cefazolin Sodium/Dextrose (Ancef 2 Gm/50 Ml) 50 mls @ 100 mls/hr IV Q8H [facility] Last Admin: 06/13/20 00:38 Dose: 100 mls/hr Documented by: Vancomycin HCl (Vancomycin 1.5 Gm/300 Ml) 300 mls @ 200 mls/hr IV Q12H [facility] Last Admin: 06/13/20 04:52 Dose: 200 mls/hr Documented by: Ibuprofen (Ibuprofen 200 Mg Tab) 200 mg PO Q6H [facility] Last Admin: 06/13/20 04:50 Dose: 200 mg Documented by: Insulin Human Lispro (Insulin Lispro 100 Unit/Ml 3 Ml Kwikpen) 0 unit SUBCUT TIDMEALS [facility]; Protocol Last Admin: 06/12/20 17:29 Dose: Not Given Documented by: Losartan Potassium (Losartan 25 Mg Tab) 25 mg PO DAILY [facility] Last Admin: 06/12/20 08:44 Dose: 25 mg Documented by: Magnesium Oxide (Magnesium Oxide 400 Mg Tab) 400 mg PO DAILY@1200 [facility] Last Admin: 06/12/20 12:09 Dose: 400 mg Documented by: Mometasone Furoate/Formoterol Fumar (Formoterol/Mometasone 200-5 Mcg 8.8 Gm Inhaler) 2 puff IH BID [facility] Last Admin: 06/12/20 20:58 Dose: 2 puff Documented by: Montelukast Sodium (Montelukast 10 Mg Tab) 10 mg PO BEDTIME [facility] Last Admin: 06/12/20 20:58 Dose: 10 mg Documented by: Nifedipine (Nifedipine 30 Mg Tab.Er) 60 mg PO DAILY@1200 [facility] Last Admin: 06/12/20 12:05 Dose: 60 mg Documented by: Ondansetron HCl (Ondansetron 4 Mg Tab.Dis) 4 mg PO Q4H PRN PRN Reason: nausea, able to take PO Polyethylene Glycol (Polyethylene Glycol 3350 Powder 17 Gm Packet) 17 gm PO DAILY [facility] Last Admin: 06/12/20 08:43 Dose: 17 gm Documented by: Roflumilast (Roflumilast 500 Mcg Tab) 500 mcg PO DAILY [facility] Last Admin: 06/12/20 08:44 Dose: 500 mcg Documented by: Ropinirole HCl (Ropinirole 0.5 Mg Tab) 0.25 mg PO BEDTIME [facility] Last Admin: 06/12/20 20:58 Dose: 0.25 mg Documented by: Senna/Docusate Sodium (Docusate Sodium/Sennosides 50-8.6 Mg Tab) 1 tab PO BID PRN PRN Reason: Constipation Last Admin: 06/11/20 13:06 Dose: 1 tab Documented by: Sodium Chloride (Sodium Chloride 0.9% 10 Ml Syringe) 10 ml FLUSH ASDIRECTED PRN PRN Reason: Keep Vein Open Last Admin: 06/11/20 07:20 Dose: 10 ml Documented by: Triamcinolone Acetonide (Triamcinolone Acetonide 0.1% Crm 15 Gm Tube) 0 gm TOP BID [facility] Stop: 06/24/20 21:01 Last Admin: 06/12/20 21:12 Dose: Not Given Documented by: Vancomycin HCl (Pharmacy To Dose - Vancomycin) 1 dose .XX ASDIRECTED HERACLIO Discontinued Medications Albuterol (Albuterol 0.083% 2.5 Mg/3 Ml Neb Soln) 2.5 mg NEB ONETIME ONE Stop: 06/11/20 12:19 Last Admin: 06/11/20 12:25 Dose: 2.5 mg Documented by: Bupivacaine HCl (Bupivacaine 0.25% 30 Ml Sdv) 10 ml INJECT .STK-MED ONE Stop: 06/11/20 10:30 Last Admin: 06/11/20 10:29 Dose: 10 ml Documented by: Ibuprofen (Ibuprofen 200 Mg Tab) 200 mg PO Q6H [facility] Last Admin: 06/10/20 10:19 Dose: 200 mg Documented by: Iopamidol (Iopamidol 755 Mg/Ml 100 Ml Bottle) 100 ml IV . DIRECTED ONE Stop: 06/10/20 18:09 Last Admin: 06/10/20 18:18 Dose: 100 ml Documented by: Ketorolac Tromethamine (Ketorolac 30 Mg/Ml Sdv) 30 mg IVPUSH Q6H [facility] Stop: 06/15/20 10:37 Last Admin: 06/11/20 16:19 Dose: 30 mg Documented by: Ketorolac Tromethamine (Ketorolac 30 Mg/Ml Sdv) 30 mg IVPUSH Q6H PRN PRN Reason: Pain (moderate 4-6) Stop: 06/15/20 10:37 Lidocaine/Epinephrine (Lidocaine 1% With Epinephrine 1:100,000 20 Ml Mdv) 10 ml INJECT .STK-MED ONE Stop: 06/11/20 10:30 Last Admin: 06/11/20 10:29 Dose: 10 ml Documented by: Morphine Sulfate (Morphine 2 Mg/Ml Syringe) 2 mg IVPUSH Q2H PRN PRN Reason: Pain (severe 7-10) Last Admin: 06/12/20 01:12 Dose: 2 mg Documented by: Non-Formulary Medication (Canagliflozin [Invokana]) 100 mg PO ACBREAKFAST [facility] - Exam General: Alert, Oriented Extremities: Normal Range of Motion, Non-Tender, Other (Pain and tenderness completley gone. There is minimal serous drainage) - Patient Data Lab Results Last 24 hrs: Laboratory Results - last 24 hr 06/12/20 06/12/20 06/12/20 Range/Units 11:10 16:49 21:04 POC Glucose 151 H 129 H 114 H (74-100) mg/dL 06/13/20 Range/Units 06:31 POC Glucose 119 H (74-100) mg/dL Prelin culture no growth. Gram stain many puss cells, no microorganismen Result Diagrams: 06/12/20 06:30 06/12/20 06:30 Jose Results Last 24 hrs: Microbiology 06/09/20 15:39 Aerobic Blood Culture - Preliminary Blood - Venous NO GROWTH AFTER 3 DAYS Anaerobic Blood Culture - Preliminary NO GROWTH AFTER 3 DAYS 06/09/20 15:44 Aerobic Blood Culture - Preliminary Blood - Venous - Lab Draw NO GROWTH AFTER 3 DAYS Anaerobic Blood Culture - Preliminary NO GROWTH AFTER 3 DAYS Sepsis Event Note - Evaluation Sepsis Screening Result: No Definite Risk - Focused Exam Vital Signs: Vital Signs Temp Pulse Resp BP Pulse Ox 06/13/20 01:00 97.9 F 70 18 120/65 93 L 06/12/20 21:00 98.1 F 69 18 130/67 93 L - Problem List Review Problem List Initiated/Reviewed/Updated: Yes - Assessment Assessment:: Left Olecranon bursitis improving, await final cultures - Plan Plan:: 1. Bursitis/cellulitis: Day 4 tonight, Ancef 2 gram IV q8h and Vancomycin per pharmacy started. CBC & BMP within normal range. Vanco trough 15.5, next trough tomorrow. BC no growth to date. Culture from draining bursa yesterday, sent to [facility], pending possible preliminary tomorrow. Possible discharge may Fris am, as he would have 5 days of IV antibiotics, then would go home with 5 more days of oral antibiotics. Dr Buckley plans to recheck wound tomorrow. 2. COPD: Flutter valve, Dulera & Albuterol nebs as needed. 3. DM: Accuchecks ac & hs, Humalog medium dose sliding scale. Hold Metformin & Victoza & Glimepiride. 4. Constipation: consistent carb diet. MiraLax and Dulcolax for constipation. 5. Dermatitis: triamcinolone 0.1% bid to left antecubital fossa max 2 weeks. Left Olectanon
[2020-06-13] MEDS: Losartan 25 MG Tab PO SCH (09:05)
[2020-06-13] MEDS: Roflumilast 500 MCG Tab PO SCH (09:06)
[2020-06-13] MEDS: Formoterol/Mometasone 200-5 MCG 8.8 GM Inhaler IH SCH ×2 (09:06→20:00)
[2020-06-13] MEDS: Polyethylene Glycol 3350 Powder 17 GM Packet PO SCH (09:07)
[2020-06-13] MEDS: Triamcinolone Acetonide 0.1% Crm 15 GM Tube TOP SCH ×3 (09:15→20:02)
[2020-06-13] MEDS: Gabapentin 400 MG Cap PO SCH ×3 (10:00→20:00)
--- NOTE | 2020-06-13 10:02 | PCM.PN ---
- General Info Date of Service: 06/13/20 Subjective Update: He can move his arm better, not having as much pain. He is still itching the area inside of his arm. States nursing has been putting steroid cream on. Breathing is good. Had bowel movement yesterday, he feels better. Anxious to go home, Dr Buckley & Shane were both in with him, advised he needs another day of antibiotics IV to prevent him coming back. Dr Buckley advised him that if gets reinfected then he would require care in [place]. - Patient Data Vitals - Most Recent: Last Vital Signs Temp 97.9 F 06/13/20 01:00 Pulse 70 06/13/20 01:00 Resp 18 06/13/20 01:00 BP 140/80 06/13/20 09:05 Pulse Ox 93 L 06/13/20 01:00 Weight - Most Recent: 239 lb Lab Results Last 24 Hours: Laboratory Results - last 24 hr 06/12/20 06/12/20 06/12/20 Range/Units 11:10 16:49 21:04 POC Glucose 151 H 129 H 114 H (74-100) mg/dL 06/13/20 Range/Units 06:31 POC Glucose 119 H (74-100) mg/dL Jose Results Last 24 Hours: Microbiology 06/09/20 15:39 Aerobic Blood Culture - Preliminary Blood - Venous NO GROWTH AFTER 3 DAYS Anaerobic Blood Culture - Preliminary NO GROWTH AFTER 3 DAYS 06/09/20 15:44 Aerobic Blood Culture - Preliminary Blood - Venous - Lab Draw NO GROWTH AFTER 3 DAYS Anaerobic Blood Culture - Preliminary NO GROWTH AFTER 3 DAYS Med Orders - Current: Current Medications Acetaminophen (Acetaminophen 500 Mg Tab) 500 mg PO Q6H [facility] Last Admin: 06/13/20 04:50 Dose: 500 mg Documented by: Hydrocodone Bitart/Acetaminophen (Acetaminophen/Hydrocodone 325-10 Mg Tab) 1 tab PO Q4H PRN PRN Reason: Pain (moderate 4-6) Last Admin: 06/13/20 02:42 Dose: 1 tab Documented by: Albuterol (Albuterol 0.083% 2.5 Mg/3 Ml Neb Soln) 2.5 mg NEB Q4H PRN PRN Reason: Shortness of Breath Last Admin: 06/12/20 13:55 Dose: 2.5 mg Documented by: Allopurinol (Allopurinol 100 Mg Tab) 100 mg PO DAILY [facility] Last Admin: 06/12/20 08:44 Dose: 100 mg Documented by: Amitriptyline HCl (Amitriptyline 25 Mg Tab) 50 mg PO BEDTIME [facility] Last Admin: 06/12/20 20:58 Dose: 50 mg Documented by: Atorvastatin Calcium (Atorvastatin 10 Mg Tab) 10 mg PO DAILY@1200 [facility] Last Admin: 06/12/20 12:05 Dose: 10 mg Documented by: Bisacodyl (Bisacodyl 5 Mg Tab) 5 mg PO DAILY PRN PRN Reason: Constipation Last Admin: 06/11/20 14:00 Dose: 5 mg Documented by: Bupropion HCl (Bupropion 75 Mg Tab) 75 mg PO WITHDINNER [facility] Last Admin: 06/12/20 17:05 Dose: 75 mg Documented by: Bupropion HCl (Bupropion 75 Mg Tab) 150 mg PO DAILY [facility] Last Admin: 06/13/20 09:14 Dose: 150 mg Documented by: Dextrose/Water (50% Dextrose In Water 50 Ml Syringe) 50 ml IVPUSH ASDIRECTED PRN PRN Reason: Hypoglycemia Erythromycin (Erythromycin Base 0.5% Ophth Oint 3.5 Gm Tube) 0 gm EYEBOTH BEDTIME [facility] Last Admin: 06/12/20 21:09 Dose: Not Given Documented by: Fluticasone Propionate (Fluticasone Propionate Nasal [place] 16 Gm Bottle) 0 gm NASBOTH BID PRN PRN Reason: Allergies Gabapentin (Gabapentin 400 Mg Cap) 1,200 mg PO TID [facility] Last Admin: 06/12/20 21:00 Dose: 1,200 mg Documented by: Glucagon (Glucagon,Human Recombinant 1 Mg Vial) 1 mg IM ASDIRECTED PRN PRN Reason: Hypoglycemia Cefazolin Sodium/Dextrose (Ancef 2 Gm/50 Ml) 50 mls @ 100 mls/hr IV Q8H [facility] Last Admin: 06/13/20 00:38 Dose: 100 mls/hr Documented by: Vancomycin HCl (Vancomycin 1.5 Gm/300 Ml) 300 mls @ 200 mls/hr IV Q12H [facility] Last Admin: 06/13/20 04:52 Dose: 200 mls/hr Documented by: Ibuprofen (Ibuprofen 200 Mg Tab) 200 mg PO Q6H [facility] Last Admin: 06/13/20 04:50 Dose: 200 mg Documented by: Insulin Human Lispro (Insulin Lispro 100 Unit/Ml 3 Ml Kwikpen) 0 unit SUBCUT TI DMEALS [facility]; Protocol Last Admin: 06/13/20 08:57 Dose: 2 units Documented by: Losartan Potassium (Losartan 25 Mg Tab) 25 mg PO DAILY [facility] Last Admin: 06/13/20 09:05 Dose: 25 mg Documented by: Magnesium Oxide (Magnesium Oxide 400 Mg Tab) 400 mg PO DAILY@1200 [facility] Last Admin: 06/12/20 12:09 Dose: 400 mg Documented by: Mometasone Furoate/Formoterol Fumar (Formoterol/Mometasone 200-5 Mcg 8.8 Gm Inhaler) 2 puff IH BID [facility] Last Admin: 06/13/20 09:06 Dose: 2 puff Documented by: Montelukast Sodium (Montelukast 10 Mg Tab) 10 mg PO BEDTIME [facility] Last Admin: 06/12/20 20:58 Dose: 10 mg Documented by: Nifedipine (Nifedipine 30 Mg Tab.Er) 60 mg PO DAILY@1200 [facility] Last Admin: 06/12/20 12:05 Dose: 60 mg Documented by: Ondansetron HCl (Ondansetron 4 Mg Tab.Dis) 4 mg PO Q4H PRN PRN Reason: nausea, able to take PO Polyethylene Glycol (Polyethylene Glycol 3350 Powder 17 Gm Packet) 17 gm PO DAILY [facility] Last Admin: 06/13/20 09:07 Dose: 17 gm Documented by: Roflumilast (Roflumilast 500 Mcg Tab) 500 mcg PO DAILY [facility] Last Admin: 06/13/20 09:06 Dose: 500 mcg Documented by: Ropinirole HCl (Ropinirole 0.5 Mg Tab) 0.25 mg PO BEDTIME [facility] Last Admin: 06/12/20 20:58 Dose: 0.25 mg Documented by: Senna/Docusate Sodium (Docusate Sodium/Sennosides 50-8.6 Mg Tab) 1 tab PO BID P RN PRN Reason: Constipation Last Admin: 06/11/20 13:06 Dose: 1 tab Documented by: Sodium Chloride (Sodium Chloride 0.9% 10 Ml Syringe) 10 ml FLUSH ASDIRECTED PRN PRN Reason: Keep Vein Open Last Admin: 06/11/20 07:20 Dose: 10 ml Documented by: Triamcinolone Acetonide (Triamcinolone Acetonide 0.1% Crm 15 Gm Tube) 0 gm TOP BID [facility] Stop: 06/24/20 21:01 Last Admin: 06/13/20 09:15 Dose: 1 each Documented by: Vancomycin HCl (Pharmacy To Dose - Vancomycin) 1 dose .XX ASDIRECTED [facility] Discontinued Medications Albuterol (Albuterol 0.083% 2.5 Mg/3 Ml Neb Soln) 2.5 mg NEB ONETIME ONE Stop: 06/11/20 12:19 Last Admin: 06/11/20 12:25 Dose: 2.5 mg Documented by: Bupivacaine HCl (Bupivacaine 0.25% 30 Ml Sdv) 10 ml INJECT .STK-MED ONE Stop: 06/11/20 10:30 Last Admin: 06/11/20 10:29 Dose: 10 ml Documented by: Ibuprofen (Ibuprofen 200 Mg Tab) 200 mg PO Q6H [facility] Last Admin: 06/10/20 10:19 Dose: 200 mg Documented by: Iopamidol (Iopamidol 755 Mg/Ml 100 Ml Bottle) 100 ml IV . DIRECTED ONE Stop: 06/10/20 18:09 Last Admin: 06/10/20 18:18 Dose: 100 ml Documented by: Ketorolac Tromethamine (Ketorolac 30 Mg/Ml Sdv) 30 mg IVPUSH Q6H [facility] Stop: 06/15/20 10:37 Last Admin: 06/11/20 16:19 Dose: 30 mg Documented by: Ketorolac Tromethamine (Ketorolac 30 Mg/Ml Sdv) 30 mg IVPUSH Q6H PRN PRN Reason: Pain (moderate 4-6) Stop: 06/15/20 10:37 Lidocaine/Epinephrine (Lidocaine 1% With Epinephrine 1:100,000 20 Ml Mdv) 10 ml INJECT .STK-MED ONE Stop: 06/11/20 10:30 Last Admin: 06/11/20 10:29 Dose: 10 ml Documented by: Morphine Sulfate (Morphine 2 Mg/Ml Syringe) 2 mg IVPUSH Q2H PRN PRN Reason: Pain (severe 7-10) Last Admin: 06/12/20 01:12 Dose: 2 mg Documented by: Non-Formulary Medication (Canagliflozin [Invokana]) 100 mg PO ACBREAKFAST [facility] - Exam General: Alert, Oriented, Cooperative Lungs: Clear to Auscultation (poor patient effort), Normal Respiratory Effort. No: Crackles, Wheezing Cardiovascular: Regular Rate, Regular Rhythm GI/Abdominal Exam: Normal Bowel Sounds, Soft (obese), Non-Tender, No Distention Extremities: Normal Range of Motion, Redness (improved, small area around colleen drain. NT over bursa. Lichenified erythematous area still in antecubital fossa. ). No: Joint Swelling, Increased Warmth Peripheral Pulses: 2+: Radial (L), Radial (R) Wound/Incisions: Healing Well, Drainage (serosanguinous, minimal), Erythema Improving - Patient Data Lab Results Last 24 hrs: Laboratory Results - last 24 hr 06/12/20 06/12/20 06/12/20 Range/Units 11:10 16:49 21:04 POC Glucose 151 H 129 H 114 H (74-100) mg/dL 06/13/20 Range/Units 06:31 POC Glucose 119 H (74-100) mg/dL Result Diagrams: 06/12/20 06:30 06/12/20 06:30 Jose Results Last 24 hrs: Microbiology 06/09/20 15:39 Aerobic Blood Culture - Preliminary Blood - Venous NO GROWTH AFTER 3 DAYS Anaerobic Blood Culture - Preliminary NO GROWTH AFTER 3 DAYS 06/09/20 15:44 Aerobic Blood Culture - Preliminary Blood - Venous - Lab Draw NO GROWTH AFTER 3 DAYS Anaerobic Blood Culture - Preliminary NO GROWTH AFTER 3 DAYS Sepsis Event Note - Evaluation Sepsis Screening Result: No Definite Risk - Focused Exam Vital Signs: Vital Signs Temp Pulse Resp BP BP Pulse Ox 06/13/20 09:05 140/80 06/13/20 01:00 97.9 F 70 18 120/65 93 L - Problem List & Annotations (1) Bursitis of left elbow SNOMED Code(s): 321562936 Code(s): M70.32 - OTHER BURSITIS OF ELBOW, LEFT ELBOW Status: Acute Current Visit: Yes Qualifiers: Elbow bursitis location: olecranon bursitis Qualified Code(s): M70.22 - Olecranon bursitis, left elbow (2) Cellulitis SNOMED Code(s): 881295069 Code(s): L03.90 - CELLULITIS, UNSPECIFIED Status: Acute Current Visit: Yes Qualifiers: Site of cellulitis: extremity Site of cellulitis of extremity: upper extremity Laterality: left Qualified Code(s): L03.114 - Cellulitis of left upper limb (3) COPD (chronic obstructive pulmonary disease) SNOMED Code(s): 83379742 Code(s): J44.9 - CHRONIC OBSTRUCTIVE PULMONARY DISEASE, UNSPECIFIED Status: Chronic Current Visit: Yes Qualifiers: COPD type: unspecified COPD Qualified Code(s): J44.9 - Chronic obstructive pulmonary disease, unspecified (4) Type 2 diabetes mellitus SNOMED Code(s): 98532860 Code(s): E11.9 - TYPE 2 DIABETES MELLITUS WITHOUT COMPLICATIONS Status: Chronic Current Visit: Yes Qualifiers: Diabetes mellitus [facility] insulin use: without terminologist use Diabetes mellitus complication status: with other specified complication Qualified Code(s): E11.69 - Type 2 diabetes mellitus with other specified complication Annotation/Comment:: (5) Dermatitis SNOMED Code(s): 008006180 Code(s): L30.9 - DERMATITIS, UNSPECIFIED Status: Acute Current Visit: Yes Annotation/Comment:: antecubital fossa - Problem List Review Problem List Initiated/Reviewed/Updated: Yes - My Orders Last 24 Hours: My Active Orders 06/12/20 10:30 Ibuprofen [Motrin] 200 mg PO Q6H 06/13/20 17:00 BASIC METABOLIC PANEL,BMP [CHEM] Routine CBC WITH AUTO DIFF [HEME] Routine VANCOMYCIN TROUGH [CHEM] Routine - Plan Plan:: 1. Bursitis/cellulitis: Day 5 tonight, Ancef 2 gram IV q8h and Vancomycin per pharmacy started. CBC, BMP, CRP, vanco trough due to 1700. BC no growth to date. Wound culture: many pus cells but no organisms. Anticipate discharge Weds am, as he would have 5 days of IV antibiotics, then would go home with 5 more days of oral antibiotics. Saw patient today in conjunction with Dr Buckley. 2. COPD: Flutter valve, Dulera & Albuterol nebs as needed. 3. DM: Accuchecks ac & hs, Humalog medium dose sliding scale. Hold Metformin & Victoza & Glimepiride. 4. Constipation: consistent carb diet. MiraLax and Dulcolax for constipation. 5. Dermatitis: triamcinolone 0.1% bid to left antecubital fossa max 2 weeks.
[2020-06-13] MEDS: Allopurinol 100 MG Tab PO SCH (10:04)
[2020-06-13] MEDS: Cyanocobalamin (Vitamin B12) 1,000 MCG Tab PO SCH (10:50)
[2020-06-13] MEDS: NIFEdipine 30 MG Tab.ER PO SCH (12:18)
[2020-06-13] MEDS: atorvaSTATin 10 MG Tab PO SCH (12:24)
[2020-06-13] MEDS: Magnesium Oxide 400 MG Tab PO SCH (12:24)
[2020-06-13] MEDS ORDERED: Ibuprofen 200 MG Tab PO PRN (15:05)
[2020-06-13] MEDS ORDERED: Acetaminophen 500 MG Tab PO PRN (15:05)
[2020-06-13] MEDS: Bisacodyl 5 MG Tab PO PRN (16:32)
[2020-06-13] MEDS: Sodium Chloride 0.9% 10 ML Syringe FLUSH PRN (19:46)
[2020-06-13] MEDS: rOPINIRole 0.5 MG Tab PO SCH (19:59)
[2020-06-13] MEDS: Montelukast 10 MG Tab PO SCH (19:59)
[2020-06-13] MEDS: Amitriptyline 25 MG Tab PO SCH (19:59)
[2020-06-14] MEDS: Sodium Chloride 0.9% 10 ML Syringe FLUSH PRN ×2 (00:42→05:20)
[2020-06-14] MEDS: VANCOmycin 1.5 GM/300 ML 300 ML IV SCH (05:20)
[2020-06-14] MEDS: Insulin Lispro 100 Unit/ML 3 ML KwikPen SUBCUT SCH (07:27)
[2020-06-14 07:36] VITALS: BP 122/68; PULSE 88
[2020-06-14] MEDS: Roflumilast 500 MCG Tab PO SCH (08:47)
[2020-06-14] MEDS: Formoterol/Mometasone 200-5 MCG 8.8 GM Inhaler IH SCH (08:47)
[2020-06-14] MEDS: Polyethylene Glycol 3350 Powder 17 GM Packet PO SCH (08:48)
[2020-06-14] MEDS: Losartan 25 MG Tab PO SCH (08:50)
[2020-06-14] MEDS: Cyanocobalamin (Vitamin B12) 1,000 MCG Tab PO SCH (08:51)
[2020-06-14] MEDS: Allopurinol 100 MG Tab PO SCH (08:54)
[2020-06-14] MEDS: Gabapentin 400 MG Cap PO SCH (08:59)
[2020-06-14] MEDS: Triamcinolone Acetonide 0.1% Crm 15 GM Tube TOP SCH (09:00)
--- NOTE | 2020-06-14 11:06 | PCM.DCSUM1 ---
Discharge Summary - Hospital Course HPI Initial Comments: Justin was seen by Dr Lugo last week for swollen left elbow, diagnosed with bursitis, had 20 ml of serosanguineous fluid drained, started on Doxycycline. Had follow up with Dr Buckley on Friday, had another 20 ml or serosanguineous fluid drained, cultures came back negative. He came back to see Dr Buckley today for worsening pain, redness. Denies any fever, chills, sore throat, cough, shortness of breath, cough, chest pain. No nausea, vomiting, constipation or diarrhea. No dysuria, frequency or hematuria. Dr Buckley & Dr Lugo felt the swelling was better but elbow more tender, increased warmth, and now has area of redness in antecubital fossa. Dr Buckley spoke with [facility], they advised IV antibiotics so sent to ER for further evaluation. In ER: WBC 10.5, CRP 5.3, Lactic acid and blood cultures pending. Soft tissue swelling on x-ray but no effusion around joint, official report pending. Started Ancef 2 gram & Vancomycin per pharmacy, vancomycin trough tomorrow. Diagnosis: Stroke: No - Discharge Data Discharge Date: 06/14/20 ([facility]) Discharge Disposition: Home, W Home Health Agency 06 Condition: Good - Referral to Home Health Date of Face to Face Encounter: 06/14/20 Reason for Homebound Status: limited mobility Primary Care Physician: PHUONG Zuniga Skilled Need: care home assessment, teaching & medications & for daily dressing changes, has colleen drain in. Application of Triamcinolone cream daily to antecubital fossa. - Discharge Diagnosis/Problem(s) (1) Bursitis of left elbow SNOMED Code(s): 589751567 ICD Code: M70.32 - OTHER BURSITIS OF ELBOW, LEFT ELBOW Status: Acute Current Visit: Yes Problem Details: Improved. Qualifiers: Elbow bursitis location: olecranon bursitis Qualified Code(s): M70.22 - Olecranon bursitis, left elbow (2) Cellulitis SNOMED Code(s): 266491946 ICD Code: L03.90 - CELLULITIS, UNSPECIFIED Status: Acute Current Visit: Yes Problem Details: Improved. Qualifiers: Site of cellulitis: extremity Site of cellulitis of extremity: upper extremity Laterality: left Qualified Code(s): L03.114 - Cellulitis of left upper limb (3) COPD (chronic obstructive pulmonary disease) SNOMED Code(s): 93164908 ICD Code: J44.9 - CHRONIC OBSTRUCTIVE PULMONARY DISEASE, UNSPECIFIED Status: Chronic Current Visit: Yes Qualifiers: COPD type: unspecified COPD Qualified Code(s): J44.9 - Chronic obstructive pulmonary disease, unspecified (4) Type 2 diabetes mellitus SNOMED Code(s): 39651543 ICD Code: E11.9 - TYPE 2 DIABETES MELLITUS WITHOUT COMPLICATIONS Status: Chronic Current Visit: Yes Problem Details: Qualifiers: Diabetes mellitus half-way insulin use: without intermediate frame tender use Diabetes mellitus complication status: with other specified complication Qualified Code(s): E11.69 - Type 2 diabetes mellitus with other specified complication (5) Dermatitis SNOMED Code(s): 868464869 ICD Code: L30.9 - DERMATITIS, UNSPECIFIED Status: Acute Current Visit: Yes Problem Details: antecubital fossa (6) Tobacco abuse SNOMED Code(s): 144200622 ICD Code: Z72.0 - TOBACCO USE Status: Chronic Current Visit: No Problem Details: admitted during hospital stay that he started smoking again. Declined any nicotine patch, lozenges during stay. - Patient Summary/Data Operative Procedure(s) Performed: I & D Left Olecranom Bursitis Consults: Consultations 06/11/20 08:08 Consult to Physician [CONS] Routine Consulting Provider: Fareed Buckley Courtesy Call Completed to Consulting Physician: Yes Reason for Consult: drain bursitis Person Notified: yes Date Notified: 06/11/20 Time Notified: 07:53 Hospital Course: Mr Mckeon was started on Vancomycin & Ancef at admission, he was within goal range for the Vancomycin throughout hospital stay. His WBC went down from 10.5 to 8.1 on discharge, CRP went from 5.3 to 2.0. Had increased swelling over Friday, obtained CT left upper extremity: showed 8 x 4 cm swelling with thickened wall, olecranon bursitis considered with surrounding cellulitis. Consulted Dr Buckley Friday morning, he took him to OR to have I&D under conscious sedation as he had not tolerated local anesthetic very well in the clinic. He had wound culture in clinic that was negative, repeat culture was sent to [place] came back many pus cells but no microorganisms seen. Seeped through his dressing on Friday evening, removed a large clot around Mcbee drain that had been placed in OR, redressed, no further clots had to be removed. He required oxygen once on the floor after the conscious sedation but was weaned off by Friday evening. Dressing changed daily. Had been on IV antibiotics since Friday evening when culture was obtained. He had 5 days of IV Ancef & Vancomycin, will go home with Keflex 500 mg qid x 5 days and Bactrim DS bid x 5 days. His pain increased on Friday so Ibuprofen was discontinued and Toradol 30 mg IV q6h started, then Hydrocodone 10/325 mg ordered, morphine 2 mg IV q2hrs as needed, received dose of Morphine on Friday, but Hydrocodone/APAP & Toradol/Tylenol were keeping controlled, continued to improve, his hydrocodone use decreased. Started MiraLAX & Senna & Dulcolax as needed constipation on Friday, he had small bowel movement on Friday but refused lunch on Friday but he felt he was too constipated. MiraLAX & Senna scheduled, with Dulcolax continued as needed, did not have results so given warm prune juice & butter, had 3 large bowel movements then. No pain today, full range of motion to left elbow. He had denied any tobacco use on admission, stating he had quit 05/04/2018, was becoming more irritable daily through hospital course. Wanted to go outside for fresh air yesterday, nursing was going to take him out but then he admitted he wanted to go smoke and that if he couldn't go outside to smoke he didn't want to go out. Had offered nicotine patch on admission but had refused stating he didn't smoke anymore; offered again yesterday also lozenges and he refused these. He will go home with [facility] for alf for assessment, education, medication management and daily dressing changes. Discussed with Dr Buckley today, he wants to see him on Friday to reassess and possible pull the Mcbee drain. - Patient Instructions Diet: Diabetic Diet Activity: As Tolerated Showering/Bathing: No Tub Bathing/Swimming Wound/Incision Care: Keep Operative Site/Wound Site Clean and Dry, Change Dressing Daily Notify Provider of: Fever, Increased Pain, Swelling and Redness, Drainage, Nausea and/or Vomiting Other/Special Instructions: Follow up with Dr Buckley on June 16 at [facility]. [facility] home health will be coming to do daily dressing changes. - Discharge Plan *PRESCRIPTION DRUG MONITORING PROGRAM REVIEWED*: Not Applicable *COPY OF PRESCRIPTION DRUG MONITORING REPORT IN PATIENT CHUCK: Not Applicable Prescriptions/Med Rec: Sulfamethoxazole/Trimethoprim [Bactrim Ds Tablet] 1 each PO BID 5 Days #10 tablet cephALEXin [Keflex] 500 mg PO QID 5 Days #20 cap Home Medications: Home Meds Acetaminophen [Mapap] 1,000 mg PO Q8H PRN 05/04/18 [History] Albuterol [Ventolin HFA] 1 - 2 puff IH Q4H PRN 05/04/18 [History] Budesonide/Formoterol Fumarate [Symbicort 160-4.5 Mcg Inhaler] 2 inh INH BID 01/26/20 [History] Cyanocobalamin (Vitamin B-12) [B-12] 1,000 mcg PO DAILY 01/26/20 [History] Gabapentin [Neurontin] 1,200 mg PO TID 01/26/20 [History] buPROPion [Wellbutrin] 150 mg PO DAILY 01/26/20 [History] Albuterol [Proventil Neb Soln] 3 ml IH Q4H PRN 06/09/20 [History] Allopurinol [Zyloprim] 100 mg PO DAILY 06/09/20 [History] Amitriptyline [Elavil] 50 mg PO BEDTIME 06/09/20 [History] Azelastine [Astelin Nasal Soln] 2 spray NASBOTH BID PRN 06/09/20 [History] Canagliflozin [Invokana] 100 mg PO ACBREAKFAST 06/09/20 [History] Glimepiride 6 mg PO DAILY@1200 06/09/20 [History] Liraglutide [Victoza] 1.8 mg SUBCUT BEDTIME 06/09/20 [History] Losartan [Cozaar] 25 mg PO DAILY 06/09/20 [History] Magnesium Oxide 400 mg PO DAILY@1200 06/09/20 [History] Meloxicam 15 mg PO DAILY 06/09/20 [History] Montelukast [Singulair] 10 mg PO BEDTIME 06/09/20 [History] NIFEdipine [Nifedipine ER] 60 mg PO DAILY@1200 06/09/20 [History] Roflumilast [Daliresp] 500 mcg PO DAILY 06/09/20 [History] atorvaSTATin [Lipitor] 10 mg PO DAILY@1200 06/09/20 [History] buPROPion [Wellbutrin] 75 mg PO WITHDINNER 06/09/20 [History] metFORMIN HCl [Metformin ER Gastric] 1,000 mg PO WITHBREAKFAST 06/09/20 [History] rOPINIRole [Requip] 0.25 mg PO BEDTIME 06/09/20 [History] Sulfamethoxazole/Trimethoprim [Bactrim Ds Tablet] 1 each PO BID 5 Days #10 tablet 06/14/20 [Rx] Triamcinolone Acetonide [Triamcinolone Acetonide 0.1% Crm] 15 gm TOP DAILY #1 tube 06/14/20 [Rx] cephALEXin [Keflex] 500 mg PO QID 5 Days #20 cap 06/14/20 [Rx] Oxygen Therapy Mode: Room Air Patient Handouts: Cellulitis, Adult, Elbow Bursitis, [id number], Cephalexin Tablets or Capsules, Antibiotic Medicine, Adult, Fall Prevention in Hospitals, Adult, Preventing Antibiotic Resistance, Sulfamethoxazole; Trimethoprim, SMX-TMP tablets, Venous Thromboembolism Prevention Forms: ED Department Discharge Referrals: Clemente Mark PA [Primary Care Provider] - - Discharge Summary/Plan Comment DC Time >30 min.: No - General Info Date of Service: 06/14/20 Subjective Update: He had 3 bowel movements yesterday after having warm prune juice with butter, scheduled stool softeners had no results. He states he does not have any pain this morning. No trouble breathing, no productive cough. No nausea. Can bend his arm like normal. Functional Status: Reports: Pain Controlled, Tolerating Diet, Ambulating, Urinating. Denies: New Symptoms - Patient Data Vitals - Most Recent: Last Vital Signs Temp 97.9 F 06/14/20 07:34 Pulse 88 06/14/20 07:34 Resp 20 06/14/20 07:34 BP 122/68 06/14/20 08:50 Pulse Ox 91 L 06/14/20 07:34 Weight - Most Recent: 239 lb Lab Results - Last 24 hrs: Laboratory Results - last 24 hr 06/13/20 06/13/20 06/13/20 Range/Units 12:34 17:00 17:00 WBC 8.1 (3.2-10.1) x10-3/uL RBC 4.48 (3.90-5.90) x10(6)uL Hgb 13.4 (12.9-17.7) g/dL Hct 41.1 (38.3-50.1) % MCV 91.7 (80.8-98.7) fL MCH 29.8 (27.0-33.3) pg MCHC 32.5 (28.7-35.3) g/dL RDW 15.6 H (12.4-15.0) % Plt Count 194 (117-477) x10(3)uL MPV 9.4 (6.7-11.0) fL Neut % (Auto) 64.2 (40.3-71.8) % Lymph % (Auto) 21.1 (15.8-45.3) % [place] % (Auto) 8.1 (5.5-15.2) % Eos % (Auto) 5.9 (0.1-6.8) % Baso % (Auto) 0.7 (0.3-3.8) % Neut # (Auto) 5.2 (1.7-6.9) x10-3/uL Lymph # (Auto) 1.7 (0.5-4.5) x10-3/uL [place] # (Auto) 0.7 (0.0-1.2) x10-3/uL Eos # (Auto) 0.5 (0.0-0.6) x10-3/uL Baso # (Auto) 0.1 (0.0-0.3) x10-3/uL Sodium 139 (135-145) mmol/L Potassium 4.0 (3.5-5.3) mmol/L Chloride 100 (100-110) mmol/L Carbon Dioxide 27 (21-32) mmol/L BUN 11 (7-18) mg/dL Creatinine 0.8 (0.70-1.30) mg/dL Est Cr Clr Drug Dosing 103.28 mL/min Estimated GFR (MDRD) > 60 (>60) BUN/Creatinine Ratio 13.8 (9-20) Glucose 144 H (80-116) mg/dL POC Glucose 117 H (74-100) mg/dL Calcium 8.9 (8.6-10.2) mg/dL C-Reactive Protein (0.5-0.9) mg/dL Vancomycin Trough 14.1 H (<0.8) ug/mL 06/13/20 06/13/20 06/13/20 Range/Units 17:00 17:42 19:55 WBC (3.2-10.1) x10-3/uL RBC (3.90-5.90) x10(6)uL Hgb (12.9-17.7) g/dL Hct (38.3-50.1) % MCV (80.8-98.7) fL MCH (27.0-33.3) pg MCHC (28.7-35.3) g/dL RDW (12.4-15.0) % Plt Count (117-477) x10(3)uL MPV (6.7-11.0) fL Neut % (Auto) (40.3-71.8) % Lymph % (Auto) (15.8-45.3) % [place] % (Auto) (5.5-15.2) % Eos % (Auto) (0.1-6.8) % Baso % (Auto) (0.3-3.8) % Neut # (Auto) (1.7-6.9) x10-3/uL Lymph # (Auto) (0.5-4.5) x10-3/uL [place] # (Auto) (0.0-1.2) x10-3/uL Eos # (Auto) (0.0-0.6) x10-3/uL Baso # (Auto) (0.0-0.3) x10-3/uL Sodium (135-145) mmol/L Potassium (3.5-5.3) mmol/L Chloride (100-110) mmol/L Carbon Dioxide (21-32) mmol/L BUN (7-18) mg/dL Creatinine (0.70-1.30) mg/dL Est Cr Clr Drug Dosing mL/min Estimated GFR (MDRD) (>60) BUN/Creatinine Ratio (9-20) Glucose (80-116) mg/dL POC Glucose 135 H 133 H (74-100) mg/dL Calcium (8.6-10.2) mg/dL C-Reactive Protein 2.0 H (0.5-0.9) mg/dL Vancomycin Trough (<0.8) ug/mL 06/14/20 Range/Units 06:55 WBC (3.2-10.1) x10-3/uL RBC (3.90-5.90) x10(6)uL Hgb (12.9-17.7) g/dL Hct (38.3-50.1) % MCV (80.8-98.7) fL MCH (27.0-33.3) pg MCHC (28.7-35.3) g/dL RDW (12.4-15.0) % Plt Count (117-477) x10(3)uL MPV (6.7-11.0) fL Neut % (Auto) (40.3-71.8) % Lymph % (Auto) (15.8-45.3) % [place] % (Auto) (5.5-15.2) % Eos % (Auto) (0.1-6.8) % Baso % (Auto) (0.3-3.8) % Neut # (Auto) (1.7-6.9) x10-3/uL Lymph # (Auto) (0.5-4.5) x10-3/uL [place] # (Auto) (0.0-1.2) x10-3/uL Eos # (Auto) (0.0-0.6) x10-3/uL Baso # (Auto) (0.0-0.3) x10-3/uL Sodium (135-145) mmol/L Potassium (3.5-5.3) mmol/L Chloride (100-110) mmol/L Carbon Dioxide (21-32) mmol/L BUN (7-18) mg/dL Creatinine (0.70-1.30) mg/dL Est Cr Clr Drug Dosing mL/min Estimated GFR (MDRD) (>60) BUN/Creatinine Ratio (9-20) Glucose (80-116) mg/dL POC Glucose 128 H (74-100) mg/dL Calcium (8.6-10.2) mg/dL C-Reactive Protein (0.5-0.9) mg/dL Vancomycin Trough (<0.8) ug/mL BRANDEN Results - Last 24 hrs: Microbiology 06/11/20 10:35 Gram Stain - Final Elbow, Left Routine Culture - Final 06/09/20 15:39 Aerobic Blood Culture - Preliminary Blood - Venous NO GROWTH AFTER 4 DAYS Anaerobic Blood Culture - Preliminary NO GROWTH AFTER 4 DAYS 06/09/20 15:44 Aerobic Blood Culture - Preliminary Blood - Venous - Lab Draw NO GROWTH AFTER 4 DAYS Anaerobic Blood Culture - Preliminary NO GROWTH AFTER 4 DAYS Med Orders - Current: Current Medications Acetaminophen (Acetaminophen 500 Mg Tab) 500 mg PO Q6H PRN PRN Reason: MILD PAIN Last Admin: 06/13/20 21:38 Dose: 500 mg Documented by: Hydrocodone Bitart/Acetaminophen (Acetaminophen/Hydrocodone 325-10 Mg Tab) 1 tab PO Q4H PRN PRN Reason: Pain (moderate 4-6) Last Admin: 06/13/20 21:37 Dose: 1 tab Documented by: Albuterol (Albuterol 0.083% 2.5 Mg/3 Ml Neb Soln) 2.5 mg NEB Q4H PRN PRN Reason: Shortness of Breath Last Admin: 06/12/20 13:55 Dose: 2.5 mg Documented by: Allopurinol (Allopurinol 100 Mg Tab) 100 mg PO DAILY [facility] Last Admin: 06/14/20 08:54 Dose: 100 mg Documented by: Amitriptyline HCl (Amitriptyline 25 Mg Tab) 50 mg PO BEDTIME [facility] Last Admin: 06/13/20 19:59 Dose: 50 mg Documented by: Atorvastatin Calcium (Atorvastatin 10 Mg Tab) 10 mg PO DAILY@1200 [facility] Last Admin: 06/13/20 12:24 Dose: 10 mg Documented by: Bisacodyl (Bisacodyl 5 Mg Tab) 5 mg PO DAILY PRN PRN Reason: Constipation Last Admin: 06/13/20 16:32 Dose: 5 mg Documented by: Bupropion HCl (Bupropion 75 Mg Tab) 75 mg PO WITHDINNER [facility] Last Admin: 06/13/20 18:02 Dose: 75 mg Documented by: Bupropion HCl (Bupropion 75 Mg Tab) 150 mg PO DAILY [facility] Last Admin: 06/14/20 09:06 Dose: 150 mg Documented by: Cyanocobalamin (Cyanocobalamin (Vitamin B12) 1,000 Mcg Tab) 1,000 mcg PO DAILY [facility] Last Admin: 06/14/20 08:51 Dose: 1,000 mcg Documented by: Dextrose/Water (50% Dextrose In Water 50 Ml Syringe) 50 ml IVPUSH ASDIRECTED PRN PRN Reason: Hypoglycemia Fluticasone Propionate (Fluticasone Propionate Nasal [place] 16 Gm Bottle) 0 gm NASBOTH BID PRN PRN Reason: Allergies Gabapentin (Gabapentin 400 Mg Cap) 1,200 mg PO TID [facility] Last Admin: 06/14/20 08:59 Dose: 1,200 mg Documented by: Glucagon (Glucagon,Human Recombinant 1 Mg Vial) 1 mg IM ASDIRECTED PRN PRN Reason: Hypoglycemia Cefazolin Sodium/Dextrose (Ancef 2 Gm/50 Ml) 50 mls @ 100 mls/hr IV Q8H [facility] Last Admin: 06/14/20 09:00 Dose: 100 mls/hr Documented by: Vancomycin HCl (Vancomycin 1.5 Gm/300 Ml) 300 mls @ 200 mls/hr IV Q12H [facility] Last Admin: 06/14/20 05:20 Dose: 200 mls/hr Documented by: Ibuprofen (Ibuprofen 200 Mg Tab) 200 mg PO Q6H PRN PRN Reason: MILD PAIN Insulin Human Lispro (Insulin Lispro 100 Unit/Ml 3 Ml Kwikpen) 0 unit SUBCUT TIDMEALS [facility]; Protocol Last Admin: 06/14/20 07:27 Dose: Not Given Documented by: Losartan Potassium (Losartan 25 Mg Tab) 25 mg PO DAILY [facility] Last Admin: 06/14/20 08:50 Dose: 25 mg Documented by: Magnesium Oxide (Magnesium Oxide 400 Mg Tab) 400 mg PO DAILY@1200 [facility] Last Admin: 06/13/20 12:24 Dose: 400 mg Documented by: Mometasone Furoate/Formoterol Fumar (Formoterol/Mometasone 200-5 Mcg 8.8 Gm Inh aler) 2 puff IH BID [facility] Last Admin: 06/14/20 08:47 Dose: 2 puff Documented by: Montelukast Sodium (Montelukast 10 Mg Tab) 10 mg PO BEDTIME [facility] Last Admin: 06/13/20 19:59 Dose: 10 mg Documented by: Nifedipine (Nifedipine 30 Mg Tab.Er) 60 mg PO DAILY@1200 [facility] Last Admin: 06/13/20 12:18 Dose: 60 mg Documented by: Ondansetron HCl (Ondansetron 4 Mg Tab.Dis) 4 mg PO Q4H PRN PRN Reason: nausea, able to take PO Polyethylene Glycol (Polyethylene Glycol 3350 Powder 17 Gm Packet) 17 gm PO DAILY [facility] Last Admin: 06/14/20 08:48 Dose: Not Given Documented by: Roflumilast (Roflumilast 500 Mcg Tab) 500 mcg PO DAILY [facility] Last Admin: 06/14/20 08:47 Dose: 500 mcg Documented by: Ropinirole HCl (Ropinirole 0.5 Mg Tab) 0.25 mg PO BEDTIME [facility] Last Admin: 06/13/20 19:59 Dose: 0.25 mg Documented by: Senna/Docusate Sodium (Docusate Sodium/Sennosides 50-8.6 Mg Tab) 1 tab PO BID [facility] Last Admin: 06/14/20 08:49 Dose: Not Given Documented by: Sodium Chloride (Sodium Chloride 0.9% 10 Ml Syringe) 10 ml FLUSH ASDIRECTED PRN PRN Reason: Keep Vein Open Last Admin: 06/14/20 05:20 Dose: 10 ml Documented by: Triamcinolone Acetonide (Triamcinolone Acetonide 0.1% Crm 15 Gm Tube) 0 gm TOP BID [facility] Stop: 06/24/20 21:01 Last Admin: 06/13/20 20:02 Dose: Not Given Documented by: Vancomycin HCl (Pharmacy To Dose - Vancomycin) 1 dose .XX ASDIRECTED [facility] Discontinued Medications Acetaminophen (Acetaminophen 500 Mg Tab) 500 mg PO Q6H [facility] Last Admin: 06/13/20 10:01 Dose: 500 mg Documented by: Albuterol (Albuterol 0.083% 2.5 Mg/3 Ml Neb Soln) 2.5 mg NEB ONETIME ONE Stop: 06/11/20 12:19 Last Admin: 06/11/20 12:25 Dose: 2.5 mg Documented by: Bupivacaine HCl (Bupivacaine 0.25% 30 Ml Sdv) 10 ml INJECT .STK-MED ONE Stop: 06/11/20 10:30 Last Admin: 06/11/20 10:29 Dose: 10 ml Documented by: Erythromycin (Erythromycin Base 0.5% Ophth Oint 3.5 Gm Tube) 0 gm EYEBOTH BEDTIME [facility] Last Admin: 06/12/20 21:09 Dose: Not Given Documented by: Fentanyl (Fentanyl 100 Mcg/2 Ml Sdv) 100 mcg IV .STK-MED ONE Stop: 06/11/20 10:57 Ibuprofen (Ibuprofen 200 Mg Tab) 200 mg PO Q6H [facility] Last Admin: 06/10/20 10:19 Dose: 200 mg Documented by: Ibuprofen (Ibuprofen 200 Mg Tab) 200 mg PO Q6H [facility] Last Admin: 06/13/20 10:02 Dose: 200 mg Documented by: Iopamidol (Iopamidol 755 Mg/Ml 100 Ml Bottle) 100 ml IV . DIRECTED ONE Stop: 06/10/20 18:09 Last Admin: 06/10/20 18:18 Dose: 100 ml Documented by: Ketorolac Tromethamine (Ketorolac 30 Mg/Ml Sdv) 30 mg IVPUSH Q6H [facility] Stop: 06/15/20 10:37 Last Admin: 06/11/20 16:19 Dose: 30 mg Documented by: Ketorolac Tromethamine (Ketorolac 30 Mg/Ml Sdv) 30 mg IVPUSH Q6H PRN PRN Reason: Pain (moderate 4-6) Stop: 06/15/20 10:37 Lidocaine/Epinephrine (Lidocaine 1% With Epinephrine 1:100,000 20 Ml Mdv) 10 ml INJECT .STK-MED ONE Stop: 06/11/20 10:30 Last Admin: 06/11/20 10:29 Dose: 10 ml Documented by: Midazolam HCl (Midazolam 1 Mg/Ml 2 Ml Sdv) 4 mg IV .STK-MED ONE Stop: 06/11/20 10:57 Morphine Sulfate (Morphine 2 Mg/Ml Syringe) 2 mg IVPUSH Q2H PRN PRN Reason: Pain (severe 7-10) Last Admin: 06/12/20 01:12 Dose: 2 mg Documented by: Non-Formulary Medication (Canagliflozin [Invokana]) 100 mg PO ACBREAKFAST [facility] Ondansetron HCl (Ondansetron 4 Mg/2 Ml Sdv) 4 mg IVPUSH .STK-MED ONE Stop: 06/11/20 10:57 Propofol (Propofol 200 Mg/20 Ml Sdv) 100 mg IV .STK-MED ONE Stop: 06/11/20 10:57 Senna/Docusate Sodium (Docusate Sodium/Sennosides 50-8.6 Mg Tab) 1 tab PO BID PRN PRN Reason: Constipation Last Admin: 06/11/20 13:06 Dose: 1 tab Documented by: - Exam General: Reports: Alert, Oriented, Cooperative, No Acute Distress Lungs: Reports: Clear to Auscultation, Normal Respiratory Effort. Denies: Wheezing Cardiovascular: Reports: Regular Rate, Regular Rhythm GI/Abdominal Exam: Normal Bowel Sounds, Soft, Non-Tender, No Distention Extremities: Normal Range of Motion, No Pedal Edema Wound/Incisions: Reports: Dressing Dry and Intact, No Drainage (noted on dressing)
== END 2020-06-14 10:13 | disposition home health service (06) | DRG 507 ==
LOC: FB.ED 15:16 → FB.MS 16:17
PROVIDERS: ADMIT Family Medicine; ATTEND Family Medicine
PROC: 0R9M0ZZ Drainage of Left Elbow Joint, Open Approach (ICD-10-PCS; principal; 2020-06-11)
DX: M70.22 Olecranon bursitis, left elbow (principal); L03.114 Cellulitis of left upper limb; J44.9 Chronic obstructive pulmonary disease, unspecified; L30.9 Dermatitis, unspecified; K59.00 Constipation, unspecified; E78.00 Pure hypercholesterolemia, unspecified; I10 Essential (primary) hypertension; F41.9 Anxiety disorder, unspecified; Z20.822 Contact with and (suspected) exposure to COVID-19; F32.9 Major depressive disorder, single episode, unspecified; E66.9 Obesity, unspecified; E11.9 Type 2 diabetes mellitus without complications; R09.02 Hypoxemia; Z79.84 Long term (current) use of oral hypoglycemic drugs; Z79.899 Other long term (current) drug therapy; Z98.49 Cataract extraction status, unspecified eye; Z87.891 Personal history of nicotine dependence; Z79.52 Long term (current) use of systemic steroids
CPT/HCPCS: 01740-QZ; 36415; 73080-LT; 73201-LT; 80048; 80053; 80202; 82962; 83605; 85025; 86140; 87040; 87070; 87075; 87205; 94150; 94640; 99284; 99285-25; A9270-GY; J0690; J1815; J1885; J2250; J2270; J2405; J2704; J3010; J3370; J3490; Q9967; U0002

== ENCOUNTER 2024-08-17 06:14 | Day surgery (SDC) | payer MEDICARE ==
[2024-08-17] MEDS ORDERED: fentaNYL 100 MCG/2 ML SDV IV ONE (06:15)
[2024-08-17] MEDS ORDERED: Ondansetron 4 MG/2 ML SDV IVPUSH ONE (06:15)
[2024-08-17] MEDS ORDERED: Sodium Chloride 0.9% 10 ML Syringe IV ONE (06:15)
[2024-08-17] MEDS ORDERED: Midazolam 1 MG/ML 2 ML SDV IV ONE (06:15)
[2024-08-17] MEDS ORDERED: Sodium Chloride 0.9% 10 ML Syringe FLUSH PRN (06:45)
[2024-08-17] MEDS ORDERED: Lactated Ringers 1,000 ML IV PRN (06:45)
[2024-08-17] MEDS: acetaZOLAMIDE 500 MG Cap.ER PO ONE (08:38)
[2024-08-17 11:37] VITALS: BP 130/71; PULSE 82
== END 2024-08-17 09:21 | disposition home or self-care (01) ==
LOC: FB.SDS 06:14
PROVIDERS: ATTEND Ophthalmology
DX: E11.36 Type 2 diabetes mellitus with diabetic cataract (principal); H25.813 Combined forms of age-related cataract, bilateral; H31.092 Other chorioretinal scars, left eye; H40.013 Open angle with borderline findings, low risk, bilateral; H18.613 Keratoconus, stable, bilateral; J44.9 Chronic obstructive pulmonary disease, unspecified; I10 Essential (primary) hypertension; E78.5 Hyperlipidemia, unspecified; Z79.899 Other long term (current) drug therapy
CPT/HCPCS: 66984; 82947; A9270; J2250; J2405; J3010; V2632; 00142

== ENCOUNTER 2024-09-14 06:10 | Day surgery (SDC) | payer MEDICARE ==
[2024-09-14] MEDS ORDERED: Ondansetron 4 MG/2 ML SDV IVPUSH ONE (06:11)
[2024-09-14] MEDS ORDERED: fentaNYL 100 MCG/2 ML SDV IV ONE (06:11)
[2024-09-14] MEDS ORDERED: Midazolam 1 MG/ML 2 ML SDV IV ONE (06:11)
[2024-09-14] MEDS ORDERED: Sodium Chloride 0.9% 10 ML Syringe IV ONE (06:11)
[2024-09-14] MEDS ORDERED: Lactated Ringers 1,000 ML IV PRN (06:30)
[2024-09-14] MEDS ORDERED: Sodium Chloride 0.9% 10 ML Syringe FLUSH PRN (06:30)
[2024-09-14] MEDS: acetaZOLAMIDE 500 MG Cap.ER PO ONE (08:36)
[2024-09-14 09:20] VITALS: BP 125/73; PULSE 80
== END 2024-09-14 08:57 | disposition home or self-care (01) ==
LOC: FB.SDS 06:10
PROVIDERS: ATTEND Ophthalmology
DX: E11.36 Type 2 diabetes mellitus with diabetic cataract (principal); H26.9 Unspecified cataract; I10 Essential (primary) hypertension; E78.5 Hyperlipidemia, unspecified; J44.89 Other specified chronic obstructive pulmonary disease; Z79.899 Other long term (current) drug therapy
CPT/HCPCS: 00142; 66984; 82947; A9270; J2250; J2405; J3010; V2632